=== PATIENT | male | born 1940 | race Caucasian/White ===

== ENCOUNTER → 2018-03-24 08:48 | Outpatient (CLI) | payer MEDICARE, OTHER, SELFPAY | PROVIDERS: PCP Family Medicine; Visit Provider Surgery | DX: R10.13 Epigastric pain (principal); K62.5 Hemorrhage of anus and rectum; K21.9 Gastro-esophageal reflux disease without esophagitis; J44.9 Chronic obstructive pulmonary disease, unspecified; I10 Essential (primary) hypertension | CPT/HCPCS: 99213 ==

== ENCOUNTER → 2018-04-01 11:57 | Outpatient (CLI) | payer MEDICARE, OTHER, SELFPAY | PROVIDERS: PCP Family Medicine; Visit Provider Orthopaedic Surgery | DX: M65.331 Trigger finger, right middle finger (principal) | CPT/HCPCS: 99213 ==

== ENCOUNTER 2018-04-07 09:24 | Outpatient (CLI) | payer MEDICARE, OTHER, SELFPAY | END 2018-04-07 09:44 | PROVIDERS: PCP Family Medicine; Visit Provider Surgery | DX: Z01.810 Encounter for preprocedural cardiovascular examination (principal) | CPT/HCPCS: 93005; 93010 ==

== ENCOUNTER 2018-04-13 07:17 | Day surgery (SDC) | payer MEDICARE, OTHER, SELFPAY ==
[2018-04-07 10:18] VITALS: BP 112/77; PULSE 60; RESP 17; TEMP 36.7; O2SAT 97
[2018-04-13] MEDS: Lactated Ringers 1,000 ML 30 ML IV (07:38)
[2018-04-13 07:54] VITALS: BP 132/67; PULSE 95; RESP 18; TEMP 35.5; O2SAT 97
[2018-04-13 08:05] LABS: HCT 46.5 % (40.0-50.0)
--- NOTE | 2018-04-13 09:11 | STOM_PTH ---
PATIENT: Jovanni Figueroa LOC: [facility] U#:[id number] AGE/SX: 77/M ROOM: RE04/13/[address]: Blair Lundberg DO : 1940 BED: DIS: 04/13/2018 SPEC #: [id number] RECD: 04/13/18 12:50 STATUS: JARVIS RE #: [id number] PRICE: 04/13/18 09:[address]: Blair Lundberg DEPT: Surgical Specimen RECD BY: Leatha Campbell ENTERED: 04/13/18 12:51 SP TYPE: STOMACH OTHR DR: Ronald Irby MD Tissues: 1 - STOMACH BIOPSY Procedures: GROSS AND MICRO LEVEL 4 Comments: [id number]
--- NOTE | 2018-04-13 10:07 | W.PM.DSUDISC ---
Discharge Plan Disposition Patient Disposition: HOME Condition: Good Discharge Details Reason For Visit: EPIGASTRIC PAIN / RECTAL BLEEDING Attending Provider: Blair Lundberg Primary Care Provider: Ronald Irby Home Meds and New Rx's Prescriptions: New sucralfate 1 gram tablet 1 gm PO TID Qty: 90 RF: 0 Continue acetaminophen-caffeine [Excedrin Tension Headache] 1 EACH tablet 2 tab PO BID RF: 0 coenzyme E36-[id number] E [Co Q-10 (with Vit E)] 1 EACH capsule 1 tab PO DAILY RF: 0 finasteride 5 MG tablet 1 tab PO HS RF: 0 doxazosin 4 MG tablet 4 mg PO HS Qty: 90 RF: 4 metoprolol succinate [Toprol XL] 50 MG tablet extended release 24 hr 25 tab PO DAILY Qty: 45 RF: 4 Lactobacillus acidophilus 1 EACH tablet 1 ea PO DAILY Qty: 1 RF: 0 potassium chloride 20 MEQ tablet,ER particles/crystals 2 tab PO DAILY Qty: 180 RF: 4 furosemide 40 MG tablet 40 mg PO DAILY Qty: 90 RF: 4 paroxetine HCl [Paxil] 20 MG tablet 20 mg PO DAILY Qty: 90 RF: 4 tiotropium bromide [Spiriva with HandiHaler] 18 MCG capsule, w/inhalation device 1 puff Inhalation DAILY Qty: 3 RF: 4 pantoprazole 40 MG tablet,delayed release (DR/EC) 40 mg PO BID Qty: 180 RF: 2 bisacodyl [Dulcolax (bisacodyl)] 5 MG tablet,delayed release (DR/EC) 5 mg PO ONCE Qty: 4 RF: 0 Discontinued apixaban [Eliquis] 5 MG tablet 5 mg PO BID Qty: 180 RF: 3 polyethylene glycol 3350 [Miralax] 17 GM powder in packet 17 g PO DAILY Qty: 255 RF: 0 Discharge Instructions Instructions: Colonoscopy (DC), Upper Endoscopy (DC) Activity:: Activity as Tolerated Diet:: resume regular diet Discharge Orders Discharge Orders: Discharge Order (Routine); Ordered 04/13/18 Ordered By: Blair Lundberg
[2018-04-13 10:20] VITALS: BP 120/76; PULSE 60; RESP 16; TEMP 36.4; O2SAT 96
--- NOTE | 2018-04-13 12:42 | ROE_ITS ---
Date of service: 04/13/18 Time of Service: 09:00 Operative Note Date of procedure: 04/13/18 Pre-op diagnosis: 1. Epigastric pain 2. Rectal bleeding Post-op diagnosis: other (1. Gastritis 2. Mild sigmoid diverticulosis 3. Grade 2 hemorrhoids) Procedure: 1. Esophagogastroduodenoscopy with biopsies by cold forceps 2. Colonoscopy to the cecum Surgeon: Blair Lundberg Anesthesia: MAC (Salesman/Owner: Galileo Do CRNA ASA 3 Mallampati class III) Estimated blood loss (mL): 1 Pathology: other (Gastric antral biopsies) Complications: None Patient was transported to: same day Patient's condition: stable Indications: 77 y/o male referred for epigastric pain and rectal bleeding. The epigastric pain started several weeks ago. It has been gradual in its course. He noted more pain then burning. He has a history of GERD which this seems different. He reports the pain sometimes is in his chest and radiates to his back. Gaviscon helps some with the discomfort. He has also had history of rectal bleeding, and will sometimes notice blood on the tissue if he wipes to hard. He does have a sensation of tissue hanging out after a bowel movement which will self reduce. He does have a history of hemorrhoids which he treats with Preparation H with satisfactory relief. His last colonoscopy was about 5 years. Recommended he undergo upper and lower endoscopy. The procedures were discussed with him, and the risks reviewed. All his questions were answered to his satisfaction. Consent was obtained to proceed. Findings: In examining the upper gastrointestinal tract from the oropharynx to the third portion of the duodenum, the patient was noted to have inflammation in the gastric antrum consistent with gastritis shallow ulcerations present. On examination of the colon from cecum to anus including the last portion of the terminal ileum. The patient was noted to have some mild sigmoid diverticulosis, and grade 2 hemorrhoids. Procedure Description: Mr. Young was brought to the preanesthesia staging area ; his identification was confirmed; and his consent signed. He was then brought to the procedure room positioned in the left lateral decubitus. Monitoring for telemetry, O2 saturation, end-tidal CO2, and blood pressure were applied. An appropriate timeout was taken reviewing the patient's identification, allergies, procedure, and fire risk. A bite block was placed, and sedation was titrated for effect by the HEALTHCARE ARCHITECT. Once adequate sedation was reached I advanced the Olympus variable stiffness endoscope from the oropharynx to the third portion of the duodenum without difficulty. The scope was then withdrawn in circumferential manner from the duodenum back to the oropharynx. The duodenum appeared grossly normal. Withdrawing the scope into the stomach, and examining the gastric antrum. I noticed several areas that show ulceration and a generalized inflamed appearance of the mucosa. Multiple biopsies were taken for Confirmation. The scope was then retroflexed in the stomach; the anterior, and posterior surfaces , lesser, and greater curvature, and fundus of the stomach appeared grossly normal. I withdrew the scope to the GE junction. I measured the junction at 41 cm. The Z line was at 41 cm in a regular pattern. I then withdrew the scope through the remainder of the esophagus which was grossly normal. The scope was then removed terminating the upper endoscopy The patient was then repositioned for colonoscopy. His sedation was rechecked for adequacy. Once his sedation was confirmed to be adequate. I performed a digital rectal exam which showed no gross blood, no masses, Normal prostate, and good rectal tone. I then advanced the Olympus variable stiffness colonoscope from the anus to the cecum under direct visualization. The cecum was identified by the appendiceal orifice, and ileocecal valve. I advanced the scope into the terminal ileum for approximately 20 cm. This appeared grossly normal, and the scope was withdrawn back into the cecum. The scope was then withdrawn in circumferential manner from the cecum to the rectum. No abnormalities of the colon were noted other than some mild sigmoid diverticulosis. In the rectum, the scope was retroflexed no abnormalities of the rectal mucosa was noted the patient did have grade 2 hemorrhoids present. The scope was then withdrawn terminating the colonoscopy. There were no complications during the case. The patient tolerated the procedures well Plan: Given the patient's complaints and findings on endoscopy. I am going to start him on salt Carafate in addition to his pantoprazole while waiting for pathology of the upper endoscopy to return. As to the rectal bleeding I believe it is from his hemorrhoids. I will have him return to the office and will discuss excision versus banding the examination under anesthesia.
== END 2018-04-13 10:45 | disposition home or self-care (01) ==
PROVIDERS: PCP Family Medicine; Visit Provider Surgery
PROC: (CPT 43239; principal; 2018-04-13 08:35)
DX: K62.5 Hemorrhage of anus and rectum (principal); K57.30 Diverticulosis of large intestine without perforation or abscess without bleeding; K64.1 Second degree hemorrhoids; R10.13 Epigastric pain; K21.9 Gastro-esophageal reflux disease without esophagitis; K25.9 Gastric ulcer, unspecified as acute or chronic, without hemorrhage or perforation; K31.89 Other diseases of stomach and duodenum; J44.9 Chronic obstructive pulmonary disease, unspecified; I10 Essential (primary) hypertension
CPT/HCPCS: 43239; 45378; 36415; 88305; 85014; 85018

== ENCOUNTER → 2018-04-13 07:31 | Outpatient (BNVA) | payer MEDICARE, OTHER, SELFPAY | PROVIDERS: PCP Family Medicine; Visit Provider Surgery | DX: K62.5 Hemorrhage of anus and rectum (principal); K57.30 Diverticulosis of large intestine without perforation or abscess without bleeding; K64.1 Second degree hemorrhoids; R10.13 Epigastric pain; K21.9 Gastro-esophageal reflux disease without esophagitis; K25.9 Gastric ulcer, unspecified as acute or chronic, without hemorrhage or perforation; K31.89 Other diseases of stomach and duodenum; J44.9 Chronic obstructive pulmonary disease, unspecified; I10 Essential (primary) hypertension ==

== ENCOUNTER 2018-04-16 06:25 | Day surgery (SDC) | payer MEDICARE, OTHER, SELFPAY ==
[2018-04-16 06:46] VITALS: BP 116/71; PULSE 62; RESP 18; TEMP 36.5; O2SAT 97
[2018-04-16 07:24] VITALS: BP 136/90; PULSE 54; O2SAT 95
[2018-04-16] MEDS: Lidocaine 2% Multi-Dose 20 ML VIAL IJ (07:28)
[2018-04-16 07:39] VITALS: BP 129/83; PULSE 60; O2SAT 98
--- NOTE | 2018-04-16 07:50 | W.PM.DSUDISC ---
Discharge Plan Discharge Details Reason For Visit: RMF TRIGGER FINGER Attending Provider: Kvng Dietz Primary Care Provider: Ronald Irby Home Meds and New Rx's Prescriptions: No Action acetaminophen-caffeine [Excedrin Tension Headache] 1 EACH tablet 2 tab PO BID RF: 0 coenzyme G50-xdtlroe E [Co Q-10 (with Vit E)] 1 EACH capsule 1 tab PO DAILY RF: 0 finasteride 5 MG tablet 1 tab PO HS RF: 0 doxazosin 4 MG tablet 4 mg PO HS Qty: 90 RF: 4 metoprolol succinate [Toprol XL] 50 MG tablet extended release 24 hr 25 tab PO DAILY Qty: 45 RF: 4 Lactobacillus acidophilus 1 EACH tablet 1 ea PO DAILY Qty: 1 RF: 0 potassium chloride 20 MEQ tablet,ER particles/crystals 2 tab PO DAILY Qty: 180 RF: 4 furosemide 40 MG tablet 40 mg PO DAILY Qty: 90 RF: 4 paroxetine HCl [Paxil] 20 MG tablet 20 mg PO DAILY Qty: 90 RF: 4 tiotropium bromide [Spiriva with HandiHaler] 18 MCG capsule, w/inhalation device 1 puff Inhalation DAILY Qty: 3 RF: 4 pantoprazole 40 MG tablet,delayed release (DR/EC) 40 mg PO BID Qty: 180 RF: 2 bisacodyl [Dulcolax (bisacodyl)] 5 MG tablet,delayed release (DR/EC) 5 mg PO ONCE Qty: 4 RF: 0 sucralfate 1 gram tablet 1 gm PO TID Qty: 90 RF: 0 apixaban [Eliquis] 5 mg Tablet 5 mg PO BID RF: 0
--- NOTE | 2018-04-16 07:59 | DSE_ITS ---
Discharge Plan Disposition Patient Disposition: HOME Condition: Improving Discharge Details Reason For Visit: RMF TRIGGER FINGER Attending Provider: Kvng Dietz Primary Care Provider: Ronald Irby Home Meds and New Rx's Prescriptions: No Action acetaminophen-caffeine [Excedrin Tension Headache] 1 EACH tablet 2 tab PO BID RF: 0 coenzyme D70-yvqsyfd E [Co Q-10 (with Vit E)] 1 EACH capsule 1 tab PO DAILY RF: 0 finasteride 5 MG tablet 1 tab PO HS RF: 0 doxazosin 4 MG tablet 4 mg PO HS Qty: 90 RF: 4 metoprolol succinate [Toprol XL] 50 MG tablet extended release 24 hr 25 tab PO DAILY Qty: 45 RF: 4 Lactobacillus acidophilus 1 EACH tablet 1 ea PO DAILY Qty: 1 RF: 0 potassium chloride 20 MEQ tablet,ER particles/crystals 2 tab PO DAILY Qty: 180 RF: 4 furosemide 40 MG tablet 40 mg PO DAILY Qty: 90 RF: 4 paroxetine HCl [Paxil] 20 MG tablet 20 mg PO DAILY Qty: 90 RF: 4 tiotropium bromide [Spiriva with HandiHaler] 18 MCG capsule, w/inhalation device 1 puff Inhalation DAILY Qty: 3 RF: 4 pantoprazole 40 MG tablet,delayed release (DR/EC) 40 mg PO BID Qty: 180 RF: 2 bisacodyl [Dulcolax (bisacodyl)] 5 MG tablet,delayed release (DR/EC) 5 mg PO ONCE Qty: 4 RF: 0 sucralfate 1 gram tablet 1 gm PO TID Qty: 90 RF: 0 apixaban [Eliquis] 5 mg Tablet 5 mg PO BID RF: 0 Discharge Instructions Additional Instructions: Keep your right hand elevated above heart level as much as possible for the next 48 hours to minimize pain, swelling and possible bleeding. You may exercise your right hand and fingers as comfort allows. For showering tomorrow , cover your current bandage with a plastic bag and rubber band about the forearm to keep the wound dry. On 04/18/18, you may remove all of your bandages and get your stitch wet in the shower with soap and water. Gently pat the stitch dry and cover it with a bandaid. Resume normal activities as tolerated. Take hour usual medications as before. Take tylenol for any discomfort. Follow-up with Dr. Dietz in5-7 days for stitch removal. Roxanne will let you know the exact date and time. Office phone number is [phone] if you don't hear from her by next thursday. Remove Dressings/Wound Care:: 48 hours Shower/Bathe:: 48 hours Diet:: Regular DS: Data Vitals/I&O Vitals and I&O: Vital Signs Temp 97.7 F 04/16/18 06:46 Pulse 60 04/16/18 07:39 Resp 18 04/16/18 06:46 BP 129/83 04/16/18 07:39 Pulse Ox 98 04/16/18 07:39 Intake & Output 04/15/18 04/15/18 04/16/18 11:59 23:59 11:59 Weight 212 lb 8.41 oz
--- NOTE | 2018-04-16 08:03 | PDOC.DSDIS_ITS ---
Discharge Plan Disposition Patient Disposition: HOME Condition: Improving Discharge Details Reason For Visit: RMF TRIGGER FINGER Attending Provider: Kvng Dietz Primary Care Provider: Ronald Irby Home Meds and New Rx's Prescriptions: No Action acetaminophen-caffeine [Excedrin Tension Headache] 1 EACH tablet 2 tab PO BID RF: 0 coenzyme A19-[id number] E [Co Q-10 (with Vit E)] 1 EACH capsule 1 tab PO DAILY RF: 0 finasteride 5 MG tablet 1 tab PO HS RF: 0 doxazosin 4 MG tablet 4 mg PO HS Qty: 90 RF: 4 metoprolol succinate [Toprol XL] 50 MG tablet extended release 24 hr 25 tab PO DAILY Qty: 45 RF: 4 Lactobacillus acidophilus 1 EACH tablet 1 ea PO DAILY Qty: 1 RF: 0 potassium chloride 20 MEQ tablet,ER particles/crystals 2 tab PO DAILY Qty: 180 RF: 4 furosemide 40 MG tablet 40 mg PO DAILY Qty: 90 RF: 4 paroxetine HCl [Paxil] 20 MG tablet 20 mg PO DAILY Qty: 90 RF: 4 tiotropium bromide [Spiriva with HandiHaler] 18 MCG capsule, w/inhalation device 1 puff Inhalation DAILY Qty: 3 RF: 4 pantoprazole 40 MG tablet,delayed release (DR/EC) 40 mg PO BID Qty: 180 RF: 2 bisacodyl [Dulcolax (bisacodyl)] 5 MG tablet,delayed release (DR/EC) 5 mg PO ONCE Qty: 4 RF: 0 apixaban [Eliquis] 5 mg Tablet 5 mg PO BID RF: 0 Discharge Instructions Additional Instructions: Keep your right hand elevated above heart level as much as possible for the next 48 hours to minimize pain, swelling and possible bleeding. You may exercise your right hand and fingers as comfort allows. For showering tomorrow , cover your current bandage with a plastic bag and rubber band about the forearm to keep the wound dry. On 04/18/18, you may remove all of your bandages and get your stitch wet in the shower with soap and water. Gently pat the stitch dry and cover it with a bandaid. Resume normal activities as tolerated. Take hour usual medications as before. Take tylenol for any discomfort. Follow-up with Dr. Dietz in5-7 days for stitch removal. Roxanne will let you know the exact date and time. Office phone number is [phone] if you don't hear from her by next thursday. Activity:: Elevate Remove Dressings/Wound Care:: 48 hours Shower/Bathe:: 48 hours Diet:: Regular Discharge Orders Discharge Orders: Discharge Order (Routine); Ordered 04/16/18 Ordered By: Kvng Dietz
--- NOTE | 2018-04-16 10:50 | ROE_ITS ---
DATE OF PROCEDURE: April 16, 2018 PREOPERATIVE DIAGNOSIS: Trigger finger right middle finger. POSTOPERATIVE DIAGNOSIS: Same. PROCEDURE: Right trigger finger release via open technique. SURGEON: Kvng Dietz M.D. GM VIDEO: Nurse. ANESTHETIC: 2% Lidocaine plain. PREP: ChloraPrep. INDICATIONS: This patient has been troubled by triggering of his right middle finger. He awakes randolph ry morning with the finger locked and an inability to extend it. He has developed a slight flexion contracture at the PIP joint of about 15 degrees. I explained to him the pathophysiology of a trigge r finger. I recommended release of the A-1 farida under local anesthesia. He understood and wished to proceed. The patient is on Eliquis but I thought other than holding his dose today, he did not aebbe ve to discontinue it because of the limited nature of this surgery and the low risk for hematoma form ation. DESCRIPTION OF PROCEDURE: He was greeted in the Day Surgery area. His right middle finger was lori d. He was brought to the operating suite where his right upper extremity was prepped with ChloraPre p. 2% Lidocaine was then used to create an anesthetic wheal over the A-1 farida. After ensuring ane sthesia to the tip of the middle finger, I made a transverse incision over the A-1 farida. Loupe mag nification was used throughout the procedure. Blunt dissection was used to protect the digital nerve s and the vascular bundles from injury. The tendon sheath was identified and incised longitudinally, releasing the A-1 farida so that the patient could then flex and extend his middle finger in an unen cumbered fashion. There was no significant bleeding despite the fact that the patient normally takes Eliquis. The wound was closed with a single suture of #4-0 Ethilon in a horizontal mattress fashion . Xeroform was applied followed by 4x4's and a 2-inch conforming gauze bandage. The patient was destiney en to the outpatient recovery room in satisfactory condition, tolerating the procedure well.
== END 2018-04-16 08:20 | disposition home or self-care (01) ==
PROVIDERS: PCP Family Medicine; Visit Provider Orthopaedic Surgery
PROC: (CPT 26055; principal; 2018-04-16 07:30)
DX: M65.331 Trigger finger, right middle finger (principal); J44.9 Chronic obstructive pulmonary disease, unspecified; I10 Essential (primary) hypertension
CPT/HCPCS: 26055; J3490

== ENCOUNTER → 2018-04-16 07:52 | Outpatient (BNVA) | payer MEDICARE, OTHER, SELFPAY | PROVIDERS: PCP Family Medicine; Visit Provider Orthopaedic Surgery | DX: R69 Illness, unspecified (principal) ==

== ENCOUNTER → 2018-04-22 13:23 | Outpatient (BNVA) | payer MEDICARE, OTHER, SELFPAY | PROVIDERS: PCP Family Medicine; Referring Provider Family Medicine; Visit Provider Orthopaedic Surgery | DX: Z47.89 Encounter for other orthopedic aftercare (principal); M65.331 Trigger finger, right middle finger ==

== ENCOUNTER → 2018-04-26 10:47 | Outpatient (BNVA) | payer MEDICARE, OTHER, SELFPAY | PROVIDERS: PCP Family Medicine; Referring Provider Family Medicine; Visit Provider Surgery | DX: K62.5 Hemorrhage of anus and rectum (principal); K64.9 Unspecified hemorrhoids | CPT/HCPCS: 99212 ==

== ENCOUNTER 2018-05-07 08:10 | Outpatient (CLI) | payer MEDICARE, OTHER, SELFPAY | END 2018-05-07 08:30 | PROVIDERS: PCP Family Medicine; Visit Provider Surgery | DX: K62.5 Hemorrhage of anus and rectum (principal); Z01.818 Encounter for other preprocedural examination ==

== ENCOUNTER 2018-05-11 07:31 | Day surgery (SDC) | payer MEDICARE, OTHER, SELFPAY ==
[2018-05-11 07:38] VITALS: BP 135/89; PULSE 65; RESP 16; TEMP 36.6; O2SAT 96
[2018-05-11] MEDS: Lactated Ringers 1,000 ML 30 ML IV (08:22)
--- NOTE | 2018-05-11 10:05 | PDOC.DSDIS_ITS ---
Discharge Plan Disposition Patient Disposition: HOME Condition: Good Discharge Details Reason For Visit: Bleeding hemorrhoids Attending Provider: Blair Lundberg Primary Care Provider: Ronald Irby Home Meds and New Rx's Prescriptions: Continue acetaminophen-caffeine [Excedrin Tension Headache] 1 EACH tablet 2 tab PO BID RF: 0 coenzyme P39-bjhdjos E [Co Q-10 (with Vit E)] 1 EACH capsule 1 tab PO DAILY RF: 0 finasteride 5 MG tablet 1 tab PO HS RF: 0 doxazosin 4 MG tablet 4 mg PO HS Qty: 90 RF: 4 metoprolol succinate [Toprol XL] 50 MG tablet extended release 24 hr 25 tab PO DAILY Qty: 45 RF: 4 Lactobacillus acidophilus 1 EACH tablet 1 ea PO DAILY Qty: 1 RF: 0 potassium chloride 20 MEQ tablet,ER particles/crystals 2 tab PO DAILY Qty: 180 RF: 4 furosemide 40 MG tablet 40 mg PO DAILY Qty: 90 RF: 4 paroxetine HCl [Paxil] 20 MG tablet 20 mg PO DAILY Qty: 90 RF: 4 tiotropium bromide [Spiriva with HandiHaler] 18 MCG capsule, w/inhalation device 1 puff Inhalation DAILY Qty: 3 RF: 4 pantoprazole 40 MG tablet,delayed release (DR/EC) 40 mg PO BID Qty: 180 RF: 2 sucralfate 1 gram tablet 1 gm PO TID Qty: 90 RF: 0 apixaban [Eliquis] 5 mg Tablet 5 mg PO BID RF: 0 Discharge Instructions Instructions: Rubber Band Ligation (DC) Referrals: Balir Lundberg DO [ [facility] STAFF PHYSICIAN] - 05/19/18 10:45 am (Follow up after hemorrhoid banding of bleeding internal hemorrhoids) Discharge Orders Discharge Orders: Discharge Order (Routine); Ordered 05/11/18 Ordered By: Blair Lundberg Discharge Data Discharge Comment: Damián okeefe DS: Diagnosis Discharge Diagnosis (1) Internal and external bleeding hemorrhoids: Status: Acute Asessment and Plan: Plan for EUA of anus and rectum with hemorrhoid banding
[2018-05-11 10:37] VITALS: BP 107/67; PULSE 51; RESP 16; TEMP 36.4; O2SAT 96
--- NOTE | 2018-05-11 14:27 | ROE_ITS ---
Date of service: 05/11/18 Time of Service: 09:30 Operative Note DATE OF PROCEDURE: 05/11/18 PRE-OP DIAGNOSIS: Bleeding internal hemorrhoid POST-OP DIAGNOSIS: same PROCEDURE: Examination under anesthesia of the anus and rectum with hemorrhoid banding SURGEON: Blair Lundberg ANESTHESIA: MAC and local (1.3% Exparel) ESTIMATED BLOOD LOSS: 1 PATHOLOGY: none sent COMPLICATIONS: None Patient was transported to: same day Patient's condition: stable Implants: Rubber band ligation of 2 hemorrhoidal columns Indications: 77-year-old male with prolapsing internal hemorrhoid. Usually reduces on its own, has occasional problems with bleeding from this. He is mostly concerned with the hygiene issues that it causes. He would like this removed if possible. I discussed examination under anesthesia of the anus and rectum with possible hemorrhoid banding. I reviewed the risks. All his questions were answered to his satisfaction. Findings: On examination of the anus and rectum patient was noted to have 2 engorged hemorrhoidal columns the left lateral column and right posterior column. The right posterior column was particularly engorged and most likely the hemorrhoid that prolapses out and causes hygiene issues for Mr. Figueroa. Procedure Description: The patient was brought to the operating room. His identification was confirmed. He was positioned supine on the bed. A timeout was performed reviewing the patient's identification, allergies, medications, procedure, and equipment. Sedation was titrated for effect by the CAREER INFORMATION SPECIALIST. Once adequate sedation was reached he was placed in dorsal lithotomy position with his legs in stirrups to expose the perineum. Sling was made to retract the genitalia. Gentle dilation of the anus was performed first with digital dilation. I then infiltrated 1.3% Exparel circumferentially around the anus. I then introduced a lighted anoscope and inspected the anus and distal rectum circumferentially. On circumferential inspection I did note the left lateral hemorrhoidal column was engorged, as was the right posterior column. The right posterior column had significant redundancy, and was most likely responsible for most of the patient's complaints. I, subsequently, banded both hemorrhoidal columns. The left lateral column was adequately addressed with 1 set of rubber band ligation. The right posterior column required to sets of her band ligation to adequately reduce the redundant hemorrhoidal tissue. After banding, I inspected the anus and distal rectum again. There is good apposition of the hemorrhoidal tissue as described above. The scope was then removed in in case. The patient was awakened in the operating room and brought to day surgery recovery area in good condition. There are no complications during the case the patient tolerated procedure well.
== END 2018-05-11 10:57 | disposition home or self-care (01) ==
PROVIDERS: PCP Family Medicine; Visit Provider Surgery
PROC: (CPT 46221; principal; 2018-05-11 09:00)
PROC: (CPT 46221; 2018-05-11 09:00)
DX: K64.1 Second degree hemorrhoids (principal); K21.9 Gastro-esophageal reflux disease without esophagitis; G47.33 Obstructive sleep apnea (adult) (pediatric); I10 Essential (primary) hypertension; I48.91 Unspecified atrial fibrillation
CPT/HCPCS: 46221; J1100; J2250; J2405; J3010

== ENCOUNTER → 2018-05-19 10:30 | Outpatient (BNVA) | payer MEDICARE, OTHER, SELFPAY | PROVIDERS: PCP Family Medicine; Referring Provider Family Medicine; Visit Provider Surgery | DX: Z48.89 Encounter for other specified surgical aftercare (principal); J44.9 Chronic obstructive pulmonary disease, unspecified; Z87.891 Personal history of nicotine dependence; K64.9 Unspecified hemorrhoids ==

== ENCOUNTER → 2018-06-02 09:34 | Outpatient (BNVA) | payer MEDICARE, OTHER, SELFPAY | PROVIDERS: PCP Family Medicine; Referring Provider Family Medicine; Visit Provider Surgery | DX: Z48.89 Encounter for other specified surgical aftercare (principal); K64.4 Residual hemorrhoidal skin tags; J44.9 Chronic obstructive pulmonary disease, unspecified; Z87.891 Personal history of nicotine dependence; I10 Essential (primary) hypertension; K64.8 Other hemorrhoids | CPT/HCPCS: 99212; 99213 ==

== ENCOUNTER → 2018-08-02 10:10 | Outpatient (BNVA) | payer MEDICARE, OTHER, SELFPAY | PROVIDERS: PCP Family Medicine; Referring Provider Family Medicine; Visit Provider Surgery | DX: K64.1 Second degree hemorrhoids (principal); K21.9 Gastro-esophageal reflux disease without esophagitis; J44.9 Chronic obstructive pulmonary disease, unspecified; Z87.891 Personal history of nicotine dependence; I10 Essential (primary) hypertension | CPT/HCPCS: 99213 ==

== ENCOUNTER 2018-09-07 10:41 | Outpatient (CLI) | payer MEDICARE, OTHER, SELFPAY ==
[2018-09-07 13:00] LABS: CREATININE 1.82 mg/dL (0.70-1.30); Estimated GFR 36.12 (mL/min/1.73m2)
[2018-09-07 13:06] LABS: Hemoglobin A1C 6.3 % (4.5-6.2)
== END 2018-09-07 11:01 ==
PROVIDERS: PCP Family Medicine; Visit Provider Family Medicine
DX: R73.09 Other abnormal glucose (principal); I10 Essential (primary) hypertension
CPT/HCPCS: 36415; 82565; 83036

== ENCOUNTER 2018-09-13 02:20 | Outpatient (CLI) | payer MEDICARE, OTHER, SELFPAY ==
--- NOTE | 2018-09-13 08:07 | DI.CT_ITS ---
SYMPTOM/DIAGNOSIS: ABD PAIN, R10.[address]: CT scan of the abdomen and pelvis was performed with oral contrast only. Comparison is made with 06/16/14. Emphysematous changes are seen in the lung bases. No focal consolidating infiltrates are seen. Lack of IV contrast does limit evaluation of the abdominal organs. The unenhanced liver, spleen, pancreas and bile ducts are unremarkable. The patient is status post cholecystectomy. There are stable bilateral adrenal nodules. These likely reflect adenomas. The kidneys show no evidence of nephrolithiasis or hydronephrosis. There are bilateral renal cysts, the largest is seen in the lower pole of the right kidney and measures 6.6 cm. by 6.5 cm. The urinary bladder is intact. The prostate gland appears to impinge into the base of the urinary bladder. Bladder diverticula are seen posteriorly. There is atherosclerosis of the abdominal aorta without aneurysmal dilatation. No significant abdominal or pelvic adenopathy, ascites or pneumoperitoneum is seen. There is diverticulosis seen in the descending and sigmoid colon but no evidence of acute diverticulitis. No evidence of bowel obstruction or inflammation. No findings to suggest an acute appendicitis are present. Degenerative changes are seen in the spine. IMPRESSION: 1. No evidence of an acute abdomen. 2. Bilateral renal cysts. 3. Colonic diverticulosis but no evidence of acute diverticulitis. 4. Soft tissue mass impinging upon the base of the urinary bladder. This may reflect benign prostatic hypertrophy. A prostatic or bladder neoplasm cannot be entirely excluded. Further evaluation may be obtained with ultrasound or cystoscopy.
[2018-09-13] MEDS: Omnipaque 350 MG/ML 50 ML BTL PO (10:50)
== END 2018-09-13 02:40 ==
PROVIDERS: PCP Family Medicine; Visit Provider Family Medicine
DX: R10.84 Generalized abdominal pain (principal); N28.1 Cyst of kidney, acquired; K57.30 Diverticulosis of large intestine without perforation or abscess without bleeding; N32.3 Diverticulum of bladder; N32.9 Bladder disorder, unspecified
CPT/HCPCS: 74176; Q9967

== ENCOUNTER → 2018-10-05 12:33 | Outpatient (BNVA) | payer MEDICARE, OTHER, SELFPAY | PROVIDERS: PCP Family Medicine; Referring Provider Family Medicine; Visit Provider Nurse Practitioner Gerontology | DX: R33.9 Retention of urine, unspecified (principal); N40.1 Benign prostatic hyperplasia with lower urinary tract symptoms; J44.9 Chronic obstructive pulmonary disease, unspecified; Z87.891 Personal history of nicotine dependence; I10 Essential (primary) hypertension; N32.9 Bladder disorder, unspecified | CPT/HCPCS: 51798; 81003; 99204; 99215 ==

== ENCOUNTER 2018-10-25 10:06 | Day surgery (SDC) | payer MEDICARE, OTHER, SELFPAY ==
--- NOTE | 2018-10-25 10:11 | DI.RAD_ITS ---
SYMPTOMS/DIAGNOSIS: PAIN, S/P FALL RIGHT WRIST: There is a fracture seen extending transversely through the distal radial metaphysis. There is severe posterior displacement with a full shaft width as well as overriding of the fracture fragments. There is also severe dorsal angulation. There is mild comminution at the main fracture site. There is no visible extension to the articular surface. The ulnar styloid is fractured and displaced posteriorly. No carpal fractures are seen. There are degenerative changes at the first carpal metacarpal joint as well as first metacarpal deformity which could be related to old fractures. IMPRESSION: Colles fracture with severe posterior displacement and angulation.
[2018-10-25 10:13] VITALS: BP 133/84; PULSE 65; RESP 20; TEMP 36.5; O2SAT 95
[2018-10-25] MEDS: oxyCODONE 5 MG TAB PO (10:17)
--- NOTE | 2018-10-25 10:25 | ED.GENADUL_ITS ---
Discharge Plan Disposition Patient Disposition: [facility] Condition: Stable Discharge Details Chief Complaint: Orthopedic Clinical Impression: Fracture of right wrist Primary Care Provider: Ronald Irby ED Provider: Anuel Burch Home Meds and New Rx's Prescriptions: No Action doxazosin 4 mg tablet 4 mg PO DAILY Qty: 30 RF: 0 sucralfate 1 gram tablet 1 gm PO TID Qty: 270 RF: 3 hydrocortisone [Preparation H Hydrocortisone] 1 % cream 1 applic TP BID Qty: 26 RF: 3 finasteride 5 mg tablet 5 mg PO HS RF: 0 Excedrin Tension Headache 1 EACH tablet 2 tab PO BID RF: 0 coenzyme [id number] E [Co Q-10 (with Vit E)] 1 EACH capsule 1 tab PO DAILY RF: 0 metoprolol succinate [Toprol XL] 50 MG tablet extended release 24 hr 25 tab PO DAILY Qty: 45 RF: 4 Lactobacillus acidophilus 1 EACH tablet 1 ea PO DAILY Qty: 1 RF: 0 Spiriva with HandiHaler 18 MCG capsule, w/inhalation device 1 puff Inhalation DAILY Qty: 3 RF: 4 pantoprazole 40 MG tablet,delayed release (DR/EC) 40 mg PO BID Qty: 180 RF: 2 doxazosin 4 mg tablet 4 mg PO HS Qty: 90 RF: 4 potassium chloride 20 mEq tablet,ER particles/crystals 40 meq PO DAILY Qty: 180 RF: 4 furosemide 40 mg tablet 40 mg PO DAILY Qty: 90 RF: 4 paroxetine HCl [Paxil] 20 mg tablet 20 mg PO DAILY Qty: 90 RF: 4 Eliquis 5 mg Tablet 5 mg PO BID RF: 0 Medical Decision Making 77 yo male states he fell after slipped on ice and landed on his right wrist, denies hitting his head or loc and has no headache, neck pain even on rom and no n/v. He has an obvious deformity to the right wrist, denies pain elsewhere. Has intact cap refill and sensation sodo not feel emergent reduction prior to xray indicated. will obtian xray of the wrist xray confirms fracture with significant dislocation, continues to have intact sensation in all fingers. Spoke with Dr. Sheridan from ortho and he will bring pt to OR for reduction Differential Diagnosis fx, dislocation Imaging Data Radiologic Study: Attestation: I personally reviewed and interpreted this imaging study as follows: Imaging: X-Ray Radiologist's impression: right wrist fx/dislocation HPI General Date/Time Provider Initiated Documentation: 10/25/18 10:11 . Limitations to Documentation: no limitations . Information obtained by: patient . History of Present Illness 77 year old M presents to the emergency department with the chief complaint of right wrist pain, described as severe, Quality is described as aching, and is localized to the right and upper extremity. Patient reports no radiation. Patient started experiencing this hour(s) (1) and it has been constant. Rest improves symptom(s), Patient did receive the following treatments prior to arrival, none Related Data Home Medications Medication Instructions Recorded Confirmed Excedrin Tension Headache 2 tab PO BID 10/25/12 10/25/18 coenzyme [id number] E [Co Q-10 1 tab PO DAILY 07/15/13 10/25/18 (with Vit E)] metoprolol succinate [Toprol XL] 25 tab PO DAILY #45 tab-cap 11/19/16 10/25/18 Lactobacillus acidophilus 1 ea PO DAILY #1 12/09/16 10/25/18 Spiriva with HandiHaler 1 puff INHALATION DAILY #3 ea 07/31/17 10/25/18 pantoprazole 40 mg PO BID #180 tab-cap 03/08/18 10/25/18 Eliquis 5 mg PO BID 04/16/18 10/25/18 hydrocortisone 1 % topical cream 1 applic TP BID #26 gm 05/19/18 10/25/18 sucralfate 1 gram tablet 1 gm PO TID #270 tab 05/19/18 10/25/18 doxazosin 4 mg tablet 4 mg PO HS #90 tab-cap 06/01/18 10/25/18 doxazosin 4 mg tablet 4 mg PO DAILY #30 tab 06/03/18 10/25/18 potassium chloride ER 20 mEq 40 meq PO DAILY #180 tab-cap 07/22/18 10/25/18 tablet,extended release(part/cryst) furosemide 40 mg tablet 40 mg PO DAILY #90 tab-cap 08/12/18 10/25/18 finasteride 5 mg tablet 5 mg PO HS tab 10/05/18 10/25/18 paroxetine 20 mg tablet 20 mg PO DAILY #90 tab-cap 10/11/18 10/25/18 Previous Rx's Medication Instructions Recorded Spiriva with HandiHaler 1 puff INHALATION DAILY #3 ea 07/31/17 pantoprazole 40 mg PO BID #180 tab-cap 03/08/18 hydrocortisone 1 % topical cream 1 applic TP BID #26 gm 05/19/18 sucralfate 1 gram tablet 1 gm PO TID #270 tab 05/19/18 doxazosin 4 mg tablet 4 mg PO HS #90 tab-cap 06/01/18 doxazosin 4 mg tablet 4 mg PO DAILY #30 tab 06/03/18 potassium chloride ER 20 mEq 40 meq PO DAILY #180 tab-cap 07/22/18 tablet,extended release(part/cryst) furosemide 40 mg tablet 40 mg PO DAILY #90 tab-cap 08/12/18 paroxetine 20 mg tablet 20 mg PO DAILY #90 tab-cap 10/11/18 Allergies Allergy/AdvReac Type Severity Reaction Status Date / Time pravastatin AdvReac Severe ABDOMINAL Verified 10/25/18 10:28 PAIN General Stated Complaint: Orthopedic JOE: 3 Review of Systems Review of Systems All systems reviewed & are unremarkable except as noted in HPI and below Constitutional Denies chills and Denies fever(s) Cardiovascular Denies chest pain and Denies dyspnea Respiratory Denies cough and Denies dyspnea Gastrointestinal Denies abdominal pain, Denies nausea and Denies vomiting PFS Medical History Anxiety Atrial fibrillation BPH (benign prostatic hyperplasia) CAD (coronary artery disease) COPD (chronic obstructive pulmonary disease) Cardiomyopathy Epigastric pain Essential hypertension Former smoker Internal hemorrhoids IA (myocardial infarction) Mitral valve regurgitation MAGAN (obstructive sleep apnea) MAGAN treated with BiPAP Oral lesion Rectal bleeding Right lumbar radiculopathy Tachy-danni syndrome Trigger finger, right middle finger Surgical History History of colonoscopy (Chronic 04/13/18) History of esophagogastroduodenoscopy (EGD) (Chronic 04/13/18) History of hemorrhoidectomy (Chronic 05/11/18) Arthroscopy, Shoulder (~1966) Cholecystectomy Repair of inguinal hernia Thyroid left heart cadiac cath (~1982) Family History Mother No problems noted. Father No problems noted. Brother No problems noted. Social History Smoking/Tobacco Use Status: Former Tobacco Use Alcohol Intake: current Alcohol Intake frequency: a few times a week Alcohol type: beer Drug use: Never Substance use type: does not use Aleyda/Scientology: No preference Special aleyda needs: No Do you feel safe at home: Yes Do you feel safe in your relationship?: Yes Exam Const General: no acute distress Orientation: alert HENMT Head: normal to inspection Ears: external ears normal General nose exam: external nose normal Mouth: moist mucous membranes Eyes General: appearance normal, both eyes and all related structures Neck Neck: normal visual inspection Resp Effort & Inspection: normal respiratory effort and able to speak in complete sentences Cardio Rate: regular rate Skin General skin exam: no rashes or lesions noted Neuro General: alert and oriented x3 Extrem General: normal capillary refill Psych Mental Status: mental status grossly normal Course Respiratory Effort Non-Labored 10/25/18 10:13
--- NOTE | 2018-10-25 11:03 | DI.RAD_ITS ---
SYMPTOMS/DIAGNOSIS: RT WRIST DISTAL RADIUS FRACTURE C-ARM FLUOROSCOPY OF THE RIGHT WRIST: Fluoroscopy Time: 33.8 seconds/.39 mGy Fluoroscopy was provided in the OR for Dr. Sheridan. Hardcopy images show pin placement through the distal radius for fracture fixation. The alignment is now nearly anatomic.
[2018-10-25] MEDS: Lactated Ringers 1,000 ML 125 ML IV (11:31)
[2018-10-25 12:30] VITALS: BP 101/73; PULSE 58; RESP 13; TEMP 36.5; O2SAT 92
[2018-10-25 12:35] VITALS: BP 117/57; PULSE 62; RESP 14; TEMP 36.5; O2SAT 92
[2018-10-25 12:40] VITALS: BP 114/64; PULSE 60; RESP 13; TEMP 36.5; O2SAT 93
--- NOTE | 2018-10-25 12:44 | PDOC.DSDIS_ITS ---
Discharge Plan Disposition Patient Disposition: HOME Condition: Stable Discharge Details Chief Complaint: Orthopedic Clinical Impression: Fracture of right wrist Reason For Visit: closed reduction/percutaneous pinning fx distal ra Attending Provider: Garo Sheridan Primary Care Provider: Ronald Irby ED Provider: Anuel Burch Home Meds and New Rx's Prescriptions: New hydrocodone-acetaminophen 5-325 mg tablet 1 tab PO Q6H PRN (Reason: pain) Qty: 10 RF: 0 Continued doxazosin 4 mg tablet 4 mg PO DAILY Qty: 30 RF: 0 sucralfate 1 gram tablet 1 gm PO TID Qty: 270 RF: 3 hydrocortisone [Preparation H Hydrocortisone] 1 % cream 1 applic TP BID Qty: 26 RF: 3 finasteride 5 mg tablet 5 mg PO HS RF: 0 Excedrin Tension Headache 1 EACH tablet 2 tab PO BID RF: 0 coenzyme [id number] E [Co Q-10 (with Vit E)] 1 EACH capsule 1 tab PO DAILY RF: 0 metoprolol succinate [Toprol XL] 50 MG tablet extended release 24 hr 25 tab PO DAILY Qty: 45 RF: 4 Lactobacillus acidophilus 1 EACH tablet 1 ea PO DAILY Qty: 1 RF: 0 Spiriva with HandiHaler 18 MCG capsule, w/inhalation device 1 puff Inhalation DAILY Qty: 3 RF: 4 pantoprazole 40 MG tablet,delayed release (DR/EC) 40 mg PO BID Qty: 180 RF: 2 doxazosin 4 mg tablet 4 mg PO HS Qty: 90 RF: 4 potassium chloride 20 mEq tablet,ER particles/crystals 40 meq PO DAILY Qty: 180 RF: 4 furosemide 40 mg tablet 40 mg PO DAILY Qty: 90 RF: 4 paroxetine HCl [Paxil] 20 mg tablet 20 mg PO DAILY Qty: 90 RF: 4 Eliquis 5 mg Tablet 5 mg PO BID RF: 0 Discharge Instructions Additional Instructions: Elevate R hand on pillows above heart level as much as possible for next 48-72 hours. Bend and straighten fingers R hand 10 times/hour when awake to prevent swelling. Your fingers may stay numb for 24 hours due to nerve block I put in to decrease post-op pain. Keep splint and dressings dry and intact until return. Use R hand as much as your discomfort allows. Return to 's office in one week. Take hydrocodone for breakthru pain that is not controlled by tylenol or ibuprofen. Cover dressings with plastic bag sealed with large rubber band below elbow to shower. May resume Eliquis tomorrow. Referrals: Garo Sheridan MD [ [facility] STAFF PHYSICIAN] - (f/u in one week) Equipment/Supplies: Sling Activity:: Activity as Tolerated Remove Dressings/Wound Care:: Do Not Remove Shower/Bathe:: Cover Diet:: As Tolerated Discharge Orders Discharge Orders: Discharge Order (Routine); Ordered 10/25/18 Ordered By: Garo Sheridan DS: Diagnosis Discharge Diagnosis (1) Fracture of radius, distal, with ulna, right, closed: Status: Acute
[2018-10-25 12:55] VITALS: BP 120/76; PULSE 57; RESP 15; TEMP 36.5; O2SAT 94
[2018-10-25 13:36] VITALS: BP 118/80; PULSE 60; RESP 18; TEMP 35.6; O2SAT 94
--- NOTE | 2018-10-25 13:42 | PHPE_ITS ---
DATE OF PROCEDURE: October 25, 2018 DATE OF EXAM: October 25, 2018 SURGEON: Garo Sheridan M.D. REASON FOR ADMISSION: Displaced fracture distal radius and ulna on the right. ASSESSMENT: Completely displaced extraarticular fracture of the distal radius and ulna styloid on th e right. It is surprising that he does not have any neurovascular compromise at this time, but I thi nk that if it's not attended to quickly, he will develop this. Another complication is from bleeding from the Eliquis he takes, although he has not taken his dose today. PLAN: I plan to take him to the Operating Room to perform a closed reduction under general anesthesi a. I think reduction alone won't be enough and I'm recommending percutaneous pinning of the fracture once it's reduced. I think this would be easier and as effective as volar plating. I discussed jhon givens with the patient and he is in agreement with my treatment plan. HISTORY: This is a 77-year-old white male who slipped on the ice outside his house, landing on his o utstretched right wrist and back on the right side. This happened just an hour and a half prior to c oming to the Emergency Room. He was seen to have an obvious deformity of the distal radius. X-rays showed a completely displaced fracture of the distal radius that appears to be extraarticular, but th e distal fracture fragment is completely displaced and shortened at least 3 cm. Despite this amount of displacement, he's not complaining of any numbness in his fingers of his right hand. I was consul poli for further treatment. PAST SURGICAL HISTORY: 1. Surgery on the right shoulder for recurrent dislocations. The surgery was in the s. 2. Biceps tendon rupture, distal, on the right that was fixed. 3. A couple of hernia repairs. 4. Gallbladder removal. 5. Partial thyroidectomy. 6. Recently had trigger finger release a couple of months ago by Dr. Dietz. ADDITIONAL PROBLEMS: 1. Coronary artery disease. He thinks he has a problem with his heart valve, but he is not sure. He 's got atrial fibrillation and he's being treated with rate control with beta luciana and Eliquis as anticoagulant. 2. Detached retina. 3. Benign prostatic hypertrophy and has had some urinary obstruction in the past, along with urinary retention. REVIEW OF SYSTEMS: He says he's feeling good. He denies any loss of consciousness with his fall. Denies any chest pain or shortness of breath. He has some discomfort in the posterior shoulder since the fall, but that's it. No neck pain. PHYSICAL EXAM: HEAD: Normocephalic; no evidence of any external trauma to the head. EARS/NOSE/THROAT: External auditory canals are clear. He has false teeth upper and lower. Tongue i s well papillated and midline. No masses in the neck; no bruits. HEART: His rate appears to be regular to me today. I cannot hear a murmur. LUNGS: Clear to auscultation. ABDOMEN: Soft, nontender, active bowel sounds; no palpable masses. NEURO: He is oriented to time, place, person and situation. RIGHT UPPER EXTREMITY: He has an obvious, severe silver fork deformity to his fractured distal radiu s. Surprisingly 2-point discrimination in the right hand is normal. He has good capillary refill in the right hand. He has no peripheral edema in the LOWER EXTREMITIES. He has a deltopectoral scar on the right from his previous SHOULDER surgery.
--- NOTE | 2018-10-25 16:15 | ROE_ITS ---
DATE OF PROCEDURE: October 25, 2018 PREOPERATIVE DIAGNOSIS: Displaced fracture of distal radius and ulnar styloid on the right. POSTOPERATIVE DIAGNOSIS: Same. PROCEDURE: #1. Closed reduction and percutaneous pinning of a fracture of the distal radius and ulnar styloid o n the right. #2. Application of volar fiberglass splint. SURGEON: Garo Sheridan M.D. ANESTHESIA: General, Oscar Stuart CRNA INDICATIONS: This this is a 77-year-old white male who slipped on the ice today, landing on his outs tretched right wrist. He presented to the Emergency Room with a severe deformity of his right distal radius. X-rays revealed a completely dorsally displaced fracture of the distal radius and ulnar sty loid. The fracture was metaphyseal with no extension into the wrist joint. Shortening was at least 3 cm. He had no median nerve sensory loss on exam. He had good circulation to the fingertips. The severity of the deformity however was an indication for a closed reduction. I did not feel that the reduction could be held adequately in a cast and recommended percutaneous pinning to supplement the c losed reduction. I selected percutaneous pinning because the patient is on a regular dose of Eliquis for atrial fibrillation. The risks and complications of the procedure were explained to Mr. Figueroa in detail preoperatively. PROCEDURE: The patient was taken to the Operating Room on 10/25/18. A general anesthetic was adminis tered. The right upper extremity was suspended from an IV pole with finger traps. Countertraction o f 12 pounds was applied. A closed manipulated reduction was performed. I felt that the fracture red uced well. AP and lateral C-arm views of the distal radius showed the fracture was anatomically redu berkley. I left the upper extremity suspended through finger traps and prepped the wrist with chlorhexidine. With the help of C-arm visualization, I placed a 0.062 K-wire through the radial styloid and across t he fracture, engaging the ulnar cortex of the radial shaft proximal to the fracture. I then used a K david technique and placed two 0.062 K-wires percutaneously on the dorsum of the distal radius. Th e pins were inserted through the fracture site and driven until they engaged the volar cortex of the radius proximal to the fracture, as described by Mendez, to prevent displacement of the distal frac ture fragment. C-arm images on the AP and lateral views showed anatomic reduction and good placement of the pins. The skin was freed up around the pin sites with manual manipulation. The pin sites we re dressed with Xeroform gauze. The pins were cut short and pinballs were applied. The pin sites we re dressed with sterile gauze 4x4s, wrapped with a Marjorie bandage, and then overwrapped with a 4-inch Kerlix bandage. I took the upper extremity out of traction and applied a volar fiberglass splint hel d with a 3-inch Delbert bandage. Prior to wrapping the fracture, I placed 15 cc of 0.5% Marcaine with ep inephrine solution in the fracture site using an 18-gauge needle to perform a hematoma block. The imer jaime's anesthesia was then reversed without complications and he was discharged to the Recovery Room in good condition. The patient was discharged home from the Day Surgery Unit when fully recovered from his general anest hesia. He was experiencing excellent pain relief from his hematoma block. He was encouraged to bend and straighten the fingers of his right hand 10 times an hour while awake. He is to keep the dressi ngs and splint intact and dry until he follows up with Dr. Sheridan in one week. He will take Tylenol or ibuprofen for pain. He is given a prescription for breakthrough pain of hydrocodone/APAP 5 mg/325 mg, 1 tablet every 6 hours if needed. He will resume his Eliquis tomorrow.
== END 2018-10-25 14:14 | disposition home or self-care (01) ==
LOC: ER 11:07 → DSU 11:23 → SUR 11:28
PROVIDERS: Emergency Provider Emergency Medicine; PCP Family Medicine; Visit Provider Orthopaedic Surgery
PROC: (CPT 26727; principal; 2018-10-25 13:00)
DX: S52.551A Other extraarticular fracture of lower end of right radius, initial encounter for closed fracture (principal); S52.611A Displaced fracture of right ulna styloid process, initial encounter for closed fracture; W00.0XXA Fall on same level due to ice and snow, initial encounter; Y92.018 Other place in single-family (private) house as the place of occurrence of the external cause; I48.91 Unspecified atrial fibrillation; Z79.01 Long term (current) use of anticoagulants
CPT/HCPCS: 25606; 25651; 36415; 99285; 73100; 73110; 99284; J2405; J3010; L3650

== ENCOUNTER 2018-11-03 09:22 | Outpatient (CLI) | payer MEDICARE, OTHER, SELFPAY ==
--- NOTE | 2018-11-03 08:59 | DI.RAD_ITS ---
SYMPTOMS/DIAGNOSIS: GROIN PAIN, F/U SURGERY WRIST RIGHT WRIST: The patient is status post pin fixation of a comminuted fracture of the distal radius. The fracture in excellent position. Unchanged when compared with the intraoperative images of 10/25/18. AP PELVIS: The bony structures are normally mineralized. Minimal degenerative changes involving the hips are noted. There is no evidence of a fracture or dislocation.
== END 2018-11-03 09:42 ==
PROVIDERS: PCP Family Medicine; Referring Provider Family Medicine; Visit Provider Orthopaedic Surgery
DX: S52.501A Unspecified fracture of the lower end of right radius, initial encounter for closed fracture (principal); R10.31 Right lower quadrant pain; M16.0 Bilateral primary osteoarthritis of hip; M25.551 Pain in right hip; S52.601A Unspecified fracture of lower end of right ulna, initial encounter for closed fracture; W19.XXXA Unspecified fall, initial encounter
CPT/HCPCS: 72170; 73110

== ENCOUNTER 2018-11-17 08:51 | Outpatient (CLI) | payer MEDICARE, OTHER, SELFPAY ==
--- NOTE | 2018-11-17 08:48 | DI.RAD_ITS ---
SYMPTOMS/DIAGNOSIS: S/P OPEN REDUCTION AND INTERNAL FIXATION OF RIGHT DISTAL RADIUS RIGHT WRIST: When compared with previous images, again noted is excellent position of the distal radial fracture fragments, fixation pins in place.
== END 2018-11-17 09:11 ==
PROVIDERS: PCP Family Medicine; Referring Provider Family Medicine; Visit Provider Orthopaedic Surgery
DX: S52.501A Unspecified fracture of the lower end of right radius, initial encounter for closed fracture (principal); S52.601A Unspecified fracture of lower end of right ulna, initial encounter for closed fracture; X58.XXXA Exposure to other specified factors, initial encounter
CPT/HCPCS: 73100

== ENCOUNTER → 2018-11-24 09:27 | Outpatient (BNVA) | payer MEDICARE, OTHER, SELFPAY | PROVIDERS: PCP Family Medicine; Visit Provider Student in an Organized Health Care Education/Training Program | DX: I48.2 Chronic atrial fibrillation (principal); I42.9 Cardiomyopathy, unspecified; I08.0 Rheumatic disorders of both mitral and aortic valves; Z79.01 Long term (current) use of anticoagulants | CPT/HCPCS: 99215 ==

== ENCOUNTER 2018-11-24 10:07 | Outpatient (CLI) | payer MEDICARE, OTHER, SELFPAY ==
[2018-11-24 10:30] LABS: HCT 43.7 % (40.0-50.0); HGB 14.8 g/dL (13.5-17.5); Mean Corp. HGB Concentration 33.9 g/dL (32.0-36.0); Mean Corpuscular Hemoglobin 29.7 pg (27.0-33.0); Mean Corpuscular Volume 87.6 fL (80-95); Mean Platelet Volume 9.9 fL (8.0-11.0); Platelet Count 185 x1000/uL (130-400); RBC 4.99 m/cumm (4.50-6.00); White Blood Cell Count 7.39 k/cumm (4.4-10.8)
[2018-11-24 11:40] LABS: ALT 23 U/L (12-78); AST 13 U/L (15-37); Albumin 3.6 g/dL (3.4-5.0); Alkaline Phosphatase 91 U/L (46-116); Anion Gap 7.7 mmol/L (3-11); BUN 25 mg/dL (7-18); Bilirubin, Direct 0.13 mg/dL (0.00-0.20); Bilirubin, Total 0.4 mg/dL (0.2-1.0); CO2 28.3 mmol/L (21.0-32.0); CREATININE 1.75 mg/dL (0.70-1.30); Calcium 8.6 mg/dL (8.5-10.1); Chloride 103 mmol/L (98-107); Estimated GFR 37.79 (mL/min/1.73m2); Glucose 121 mg/dL (70-100); Magnesium 1.9 mg/dL (1.8-2.4); NT-proBNP 1192 pg/mL; Potassium 4.1 mmol/L (3.5-5.1); Sodium 139 mmol/L (136-145); Total Protein 6.2 g/dL (6.4-8.2)
== END 2018-11-24 10:27 ==
PROVIDERS: PCP Family Medicine; Visit Provider Student in an Organized Health Care Education/Training Program
DX: I34.0 Nonrheumatic mitral (valve) insufficiency (principal); I48.2 Chronic atrial fibrillation; I42.8 Other cardiomyopathies; I49.5 Sick sinus syndrome; I42.9 Cardiomyopathy, unspecified; I08.0 Rheumatic disorders of both mitral and aortic valves; Z79.01 Long term (current) use of anticoagulants
CPT/HCPCS: 36415; 80048; 80076; 85027; 99215; 83735; 83880

== ENCOUNTER 2018-12-01 09:03 | Outpatient (CLI) | payer MEDICARE, OTHER, SELFPAY ==
--- NOTE | 2018-12-01 08:54 | DI.RAD_ITS ---
SYMPTOMS/DIAGNOSIS: F/U PINNING FOR DISTAL RADIUS FRACTURE RIGHT WRIST: Two views. Comparison 11/17/18. There are again seen percutaneous pins transfixing the distal right radial fracture. No change in alignment of the orthopedic hardware or fracture components is seen. The ulnar styloid process fracture appears stable. No new fractures are present. Vascular calcifications are identified.
== END 2018-12-01 09:23 ==
PROVIDERS: PCP Family Medicine; Referring Provider Family Medicine; Visit Provider Orthopaedic Surgery
DX: S52.501A Unspecified fracture of the lower end of right radius, initial encounter for closed fracture; S52.601A Unspecified fracture of lower end of right ulna, initial encounter for closed fracture; X58.XXXA Exposure to other specified factors, initial encounter; I10 Essential (primary) hypertension; J44.9 Chronic obstructive pulmonary disease, unspecified; Z87.891 Personal history of nicotine dependence
CPT/HCPCS: 73100; L3908

== ENCOUNTER 2018-12-10 02:07 | Outpatient (CLI) | payer MEDICARE, OTHER, SELFPAY ==
--- NOTE | 2018-12-10 13:40 | MERGE_ITS ---
*[facility]* *[facility]* [address] [place] [address] Date of study: 12/10/2018 Transthoracic Echocardiography M-mode, complete 2D, complete spectral Doppler, and color Doppler *STUDY CONCLUSIONS* Summary: 1. Left ventricle: The cavity size was normal. Systolic function was mildly to moderately reduced. The estimated ejection fraction was 40-45%. Diffuse hypokinesis. Severe hypokinesis of the inferolateral and apical myocardium. LVEF < 60%, ESD > 40mm. The tissue Doppler parameters were normal. There was no evidence of elevated ventricular filling pressure by Doppler parameters. 2. Aortic valve: There was mild regurgitation. 3. Mitral valve: There was severe regurgitation. 4. Left atrium: The atrium was severely dilated. 5. Right ventricle: The cavity size was normal. Wall thickness was normal. Systolic function was normal. 6. Right atrium: The atrium was severely dilated. 7. Atrial septum: No defect or patent foramen ovale was identified. 8. Tricuspid valve: There was mild-moderate regurgitation. 9. Pulmonary arteries: Pulmonary systolic pressure was >= 35mm Hg. 10. Inferior vena cava: Poorly visualized. *PATIENT PRESENTATION* Height: 175.3cm ((69in) ) S/D Pressure: 130 / 70 Weight: 94.3kg ((207.6lb) ) BSA: 2.17m^2 Test start time: 01:45 PM. Test stop time: 03:00 PM. PERFORMING Unknown ORDERING Gavin Low REFERRING Gavin Low CONSULTING oRnald Irby [facility] MANAGER RETAIL [place]en [place] RT (R)(CT), [facility] *PROCEDURE DATA* Procedure information: The patient was identified by two identifiers. This study was interpreted by [facility]. Pertinent images and digital data are archived for permanent storage and are available for subsequent review. Comparison was made to the study of 06/11/2016. Study status: Routine. Transthoracic echocardiography. M-mode, complete 2D, complete spectral Doppler, and color Doppler. A Transthoracic Echocardiogram was performed. Scanning was performed from the parasternal, apical, subcostal, and suprasternal notch acoustic windows. Images were obtained using an [id number] cardiac ultrasound machine. Image quality was adequate. Study completion: The patient tolerated the procedure well. 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 Systolic function was mildly to moderately reduced. The estimated ejection fraction was 40-45%. Diffuse hypokinesis. Regional wall motion abnormalities: Severe hypokinesis of the inferolateral and apical myocardium. The tissue Doppler parameters were normal. There was no evidence of elevated ventricular filling pressure by Doppler parameters. Aortic valve: Trileaflet. Doppler: There was no stenosis. There was mild regurgitation. VTI ratio of LVOT to aortic valve: 0.5. Valve area (VTI): 1.7cm^2. Indexed valve area (VTI): 0.8cm^2/m^2. Peak velocity ratio of LVOT to aortic valve: 0.63. Valve area (Vmax): 2.2cm^2. Indexed valve area (Vmax): 1cm^2/m^2. Mean velocity ratio of LVOT to aortic valve: 0.62. Valve area (Vmean): 2.2cm^2. Indexed valve area (Vmean): 1cm^2/m^2. Mean gradient (S): 3.2mm Hg. Peak gradient (S): 4.7mm Hg. Aorta: Aortic root: The aortic root was normal in size. Ascending aorta: The ascending aorta was moderately dilated. Mitral valve: Doppler: There was no evidence for stenosis. There was severe regurgitation. Valve area by pressure half-time: 5.3cm^2. Indexed valve area by pressure half-time: 2.4cm^2/m^2. Peak gradient (D): 3.4mm Hg. Left atrium: The atrium was severely dilated. Atrial septum: No defect or patent foramen ovale was identified. Right ventricle: The cavity size was normal. Wall thickness was normal. Systolic function was normal. Pulmonic valve: Doppler: There was no evidence for stenosis. There was mild regurgitation. Peak gradient (S): 2.3mm Hg. Tricuspid valve: Doppler: There was mild-moderate regurgitation. Pulmonary artery: Poorly visualized. Pulmonary systolic pressure was >= 35mm Hg. Right atrium: The atrium was severely dilated. Pericardium: There was no pericardial effusion. Systemic veins: Inferior vena cava: Poorly visualized. Baseline ECG: Atrial fibrillation. Measurements Left ventricle Value Reference LV ID, ED, PLAX 5.8 cm 3.5 - 6.0 LV ID, ES, PLAX (H) 4.8 cm 2.1 - 4.0 LV PW thickness, ED, PLAX 1.0 cm LV end-diastolic volume, 1-p A2C 96 ml LV ejection fraction, 1-p A2C 41 % LV end-diastolic volume, 1-p A4C 119 ml LV ejection fraction, 1-p A4C 41 % LV e', lateral 0.11 m/sec LV E/e', lateral 8 LV e', medial 0.068 m/sec LV E/e', medial 14 LV e', average 0.089 m/sec LV E/e', average 10 Ventricular septum Value Reference IVS thickness, ED, PLAX 1.2 cm LVOT Value Reference LVOT ID, A-P 2.1 cm LVOT area 3.5 cm^2 LVOT peak velocity, S 0.69 m/sec LVOT mean velocity, S 0.54 m/sec LVOT VTI, S 12.0 cm LVOT peak gradient, S 1.9 mm Hg LVOT mean gradient, S 1.3 mm Hg Stroke volume (SV), LVOT DP 42 ml Stroke index (SV/bsa), LVOT DP 19 ml/m^2 Aortic valve Value Reference Aortic valve peak velocity, S 1.1 m/sec Aortic valve mean velocity, S 0.87 m/sec Aortic valve VTI, S 24.0 cm Aortic mean gradient, S 3.2 mm Hg Aortic peak gradient, S 4.7 mm Hg VTI ratio, LVOT/AV 0.5 Aortic valve area, VTI 1.7 cm^2 Velocity ratio, peak, LVOT/AV 0.63 Aortic valve area, peak velocity 2.2 cm^2 Velocity ratio, mean, LVOT/AV 0.62 Aortic valve area, mean velocity 2.2 cm^2 Aortic valve area/bsa, mean velocity 1 cm^2/m^2 Aorta Value Reference Aortic root ID, ED 3.9 cm Ascending aorta ID, A-P, S 4.1 cm Left atrium Value Reference LA ID, A-P, ES 5.9 cm LA ID/bsa, A-P (H) 2.7 cm/m^2 <=2.2 LA area, ES, A4C (H) 40.2 cm^2 8.8 - 23.4 LA area, ES, A2C 36 cm^2 LA volume/bsa, ES, 1-p A4C 80 ml/m^2 LA volume, ES, 2-p 155 ml LA volume/bsa, ES, 2-p 72 ml/m^2 LA/aortic root ratio 1.5 Mitral valve Value Reference Mitral E-wave peak velocity 0.93 m/sec Mitral deceleration time (L) 144 ms 150 - 230 Mitral pressure half-time 42 ms Mitral peak gradient, D 3.4 mm Hg Mitral valve area, PHT, DP 5.3 cm^2 Pulmonary veins Value Reference Pulmonary vein peak velocity, S 0.3 m/sec Pulmonary vein peak velocity, D 0.66 m/sec Pulmonary vein velocity ratio, peak, 0.45 S/D Tricuspid valve Value Reference Tricuspid regurg peak velocity 3.4 m/sec Tricuspid peak RV-RA gradient 45.1 mm Hg Right atrium Value Reference RA area, ES, A4C (H) 30.7 cm^2 8.3 - 19.5 Pulmonic valve Value Reference Pulmonic peak gradient, S 2.3 mm Hg Legend: (L) and (H) jeanmarie values outside specified reference range. I have personally reviewed the images and have reviewed and edited the reported findings. Electronically signed by Anuel Chacon MD 12/12/2018 09:58
== END 2018-12-10 02:27 ==
PROVIDERS: PCP Family Medicine; Visit Provider Student in an Organized Health Care Education/Training Program
DX: I08.3 Combined rheumatic disorders of mitral, aortic and tricuspid valves (principal); I51.7 Cardiomegaly; I42.8 Other cardiomyopathies; I48.2 Chronic atrial fibrillation
CPT/HCPCS: 93306

== ENCOUNTER 2018-12-29 09:44 | Outpatient (CLI) | payer MEDICARE, OTHER, SELFPAY ==
--- NOTE | 2018-12-29 09:26 | DI.RAD_ITS ---
SYMPTOM/DIAGNOSIS: F/U RIGHT WRIST: Comparison is made with previous exam of 12/01. Fixation pins have been removed from the distal radius. The fracture remains in good position. An ulnar styloid fracture is unchanged as well.
== END 2018-12-29 10:04 ==
PROVIDERS: PCP Family Medicine; Referring Provider Family Medicine; Visit Provider Orthopaedic Surgery
DX: S52.551D Other extraarticular fracture of lower end of right radius, subsequent encounter for closed fracture with routine healing; S52.611D Displaced fracture of right ulna styloid process, subsequent encounter for closed fracture with routine healing; W00.0XXD Fall on same level due to ice and snow, subsequent encounter
CPT/HCPCS: 73100

== ENCOUNTER → 2019-01-05 10:10 | Outpatient (BNVA) | payer MEDICARE, OTHER, SELFPAY | PROVIDERS: PCP Family Medicine; Visit Provider Student in an Organized Health Care Education/Training Program | DX: I48.2 Chronic atrial fibrillation (principal); I42.8 Other cardiomyopathies; I08.0 Rheumatic disorders of both mitral and aortic valves; J44.9 Chronic obstructive pulmonary disease, unspecified; I10 Essential (primary) hypertension | CPT/HCPCS: 99214 ==

== ENCOUNTER → 2019-01-10 08:32 | Outpatient (BNVA) | payer MEDICARE, OTHER, SELFPAY | PROVIDERS: PCP Family Medicine; Referring Provider Family Medicine; Visit Provider Surgery | DX: K64.9 Unspecified hemorrhoids (principal); K21.9 Gastro-esophageal reflux disease without esophagitis; M62.08 Separation of muscle (nontraumatic), other site; J44.9 Chronic obstructive pulmonary disease, unspecified; Z87.891 Personal history of nicotine dependence; I10 Essential (primary) hypertension | CPT/HCPCS: 99212; 99214 ==

== ENCOUNTER → 2019-01-24 11:01 | Outpatient (BNVA) | payer MEDICARE, OTHER, SELFPAY | PROVIDERS: PCP Family Medicine; Referring Provider Family Medicine; Visit Provider Surgery | DX: R10.13 Epigastric pain (principal); R10.32 Left lower quadrant pain; I10 Essential (primary) hypertension; J44.9 Chronic obstructive pulmonary disease, unspecified | CPT/HCPCS: 99212; 99213 ==

== ENCOUNTER 2019-01-28 01:29 | Outpatient (CLI) | payer MEDICARE, OTHER, SELFPAY ==
[2019-01-28 08:11] LABS: CREATININE 1.57 mg/dL (0.70-1.30); Estimated GFR 42.72 (mL/min/1.73m2)
[2019-01-28] MEDS: Omnipaque 350 MG/ML 100 ML BTL IJ (09:22)
--- NOTE | 2019-01-28 09:27 | DI.CT_ITS ---
SYMPTOM/DIAGNOSIS: ABD/EPIGASTRIC/LLQ PAIN R10.13, R10.[address]: 01/28 CT examination of the abdomen and pelvis was performed with a bolus infusion of 100 cc Omnipaque 350. There is mild cardiomegaly. There are chronic mild ground glass opacities in both lung bases. There appears to be mild hepatic steatosis. No focal hepatic lesion identified. Gallbladder has been surgically removed. No biliary dilatation seen. Pancreas is unremarkable in appearance. Small bilateral adrenal nodules noted, unchanged from previous CT of 02/2008. Multiple renal cysts noted bilaterally, no evidence of urinary tract obstruction or calcification. Urinary bladder has a thickened wall and there appear to be multiple bladder diverticula, the findings are suggestive of chronic bladder outlet obstruction. Prostate is moderately enlarged. No significant abdominal wall hernia seen. Small fat containing umbilical hernia noted. Small left fat containing hernia noted. Appendix is normal. No evidence of diverticulitis. Mild colonic diverticulosis noted. Small descending colon, apparent epiploic appendage noted without evidence of acute inflammation. No evidence of bowel obstruction. Abdominal aorta is of normal diameter and abdominal branches of the aorta are unremarkable. No abdominal or pelvic adenopathy seen. CONCLUSION: No acute findings. Findings consistent with chronic bladder outlet obstruction with thick-walled urinary bladder and multiple bladder diverticula
[2019-01-28] MEDS: Omnipaque 350 MG/ML 50 ML BTL IJ (09:35)
[2019-01-28] MEDS: Normal Saline Flush 10 ML SYR IVP (09:35)
[2019-01-28] MEDS: Breeza Beverage 473 ML BTL PO ×2 (09:36→09:37)
== END 2019-01-28 01:49 ==
PROVIDERS: PCP Family Medicine; Visit Provider Surgery
DX: R10.13 Epigastric pain (principal); R10.32 Left lower quadrant pain; N32.0 Bladder-neck obstruction; N32.89 Other specified disorders of bladder; N32.3 Diverticulum of bladder; I51.7 Cardiomegaly; R91.8 Other nonspecific abnormal finding of lung field; K76.0 Fatty (change of) liver, not elsewhere classified; N28.1 Cyst of kidney, acquired
CPT/HCPCS: 74177; 82565; J3490; Q9967

== ENCOUNTER 2019-03-07 07:52 | Emergency (ER) | payer MEDICARE, OTHER, SELFPAY ==
[2019-03-07] VITALS (20 sets, daily range): BP systolic 127–147; BP diastolic 68–91; PULSE 52–82; RESP 10–51; TEMP 36.7; O2SAT 91–97
--- NOTE | 2019-03-07 07:50 | W.ED.GENAD ---
Discharge Plan Disposition Patient Disposition: HOME Condition: Good Discharge Details Chief Complaint: Dizzy/Sync Clinical Impression: Vertigo Primary Care Provider: Ronald Irby ED Provider: Taras Mckinney Home Meds and New Rx's Prescriptions: New meclizine 25 mg tablet 25 mg PO TID PRN (Reason: dizziness) Qty: 14 RF: 0 No Action furosemide 40 mg tablet 20 mg PO DAILY RF: 0 potassium chloride 20 mEq tablet,ER particles/crystals 20 meq PO DAILY RF: 0 sucralfate 1 gram tablet 1 gm PO TID Qty: 270 RF: 3 hydrocortisone [Preparation H Hydrocortisone] 1 % cream 1 applic TP BID Qty: 26 RF: 3 rabeprazole [Aciphex] 20 mg tablet,delayed release (DR/EC) 20 mg PO BID Qty: 60 RF: 12 hemp PO DAILY RF: 0 coenzyme [id number] E [Co Q-10 (with Vit E)] 1 EACH capsule 1 tab PO DAILY RF: 0 Lactobacillus acidophilus 1 EACH tablet 1 ea PO DAILY Qty: 1 RF: 0 doxazosin 4 mg tablet 4 mg PO HS Qty: 90 RF: 4 paroxetine HCl [Paxil] 20 mg tablet 20 mg PO DAILY Qty: 90 RF: 4 Eliquis 5 mg tablet 5 mg PO BID Qty: 180 RF: 4 Spiriva with HandiHaler 18 mcg capsule, w/inhalation device 1 cap Inhalation DAILY Qty: 3 RF: 4 finasteride 5 mg tablet 5 mg PO HS Qty: 90 RF: 4 pantoprazole 40 mg tablet,delayed release (DR/EC) 40 mg PO BID Qty: 180 RF: 3 Excedrin Tension Headache 500-65 mg tablet 2 tab PO BID PRNRF: 0 metoprolol succinate [Toprol XL] 50 mg tablet extended release 24 hr 25 mg PO DAILY Qty: 45 RF: 4 Discharge Instructions Instructions: Vertigo (ED) Additional Instructions: At this time your CT scan including your scan of the vessels in your head and neck is negative for any concerning process per our radiologist. His symptoms have notably improved from before. I do feel that your symptoms may be secondary to vertigo. Please take the meclizine as directed. Please drink plenty of water throughout the day peer if you notice any worsening of your symptoms, or any new symptoms such as vomiting, diarrhea, fever, chills, shortness of breath, chest pain, numbness, weakness, or fainting , please return immediately to the emergency department for reevaluation. Please follow up with your primary care provider as soon as possible for reassessment and reevaluation. As always, it was a pleasure participating in your medical care today. Referrals: Ronald Irby MD [Primary Care Provider] - Medical Decision Making This is an 78-year-old male with a past medical history of A. fib on Eliquis, hypertension, coronary artery disease, COPD who presents today for evaluation of atypical syncope versus dizziness. He presents by EMS. This morning he has had 6 episodes of what he has difficulty describing in detail. The symptoms appear to be an odd sensation that occurs when he turns his head or body to the left of the right. He does state that he heard an associated pop in his left neck whenever he would do this. The episodes caused him to feel like he wants to pass out, but never actually does. He does have chronic tinnitus, and states that this is different than this. He states that this is also different than previous episodes of vertigo that he has had. He states that the symptoms do not occur when he is sitting upright or standing upright. Physical exam is notably benign, no neurologic deficits, he is able to ambulate well without difficulty, no dysdiadochokinesia or dysmetria. Cerebellar function testing demonstrates a negative test of skew. He does have a positive head impulse test when turned quickly to the right and the left, however he states that this brings about symptoms different than what he is feeling this morning. He denies any other concerning red flags, no history of headache. He denies any falls or trauma. He shows no other abnormalities on his physical exam, most definitely no neurologic abnormalities. Differential is broad, certainly does include atypical vertigo, dehydration, electrolyte disturbance, atrial fib episode. Stroke he is on the differential but appears unlikely and clinically inconsistent with his current exam. We will get CT imaging of his head neck to rule out acute process, aneurysm, or other significant abnormality. Perform cardiac work-up, gently rehydrate and reassess. 10:[address] scan of the head without contrast and CT angios of the head and neck have returned with no acute process per Dr. Gould radiology. Laboratory work-up is returned relatively benign. No white count, no anemia, normal electrolytes, renal function stable and unchanged. Troponin is less than 0.05. EKG is unchanged from prior EKGs from 04/07/2018. Although the TSH is elevated the free T4 is normal. Patient was gently rehydrated, he was given meclizine on arrival. On reassessment the patient is doing very well. His neuro exam continues to be benign with no focal neurologic deficits. No evidence of cerebellar dysfunction. After the benign work-up and repeat neuro exam we did roll him over multiple times in bed to reproduce the events that brought his symptoms on initially. And at this time he is no return of his initial symptoms. He does feel minimally dizzy with these movements but denies and all the severity of symptoms he had before. Patient denies any other complaints. He continues to ambulate well. He had a long discussion about observation versus discharge and at this time family feels comfortable with discharge and would like to go home. Respecting their wishes patient and family will be discharged home with meclizine and close follow-up with his primary care provider. With no inability to ambulate, no neurologic deficits, no signs of severe concerning vertigo, or cerebellar dysfunction feel that this plan is notably reasonable. We had a long discussion regarding red flags which to return, the importance of hydration, the importance of close follow-up with his PCP Dr. Irby. I feel his signs and symptoms at this time are consistent with mild vertigo, and inconsistent with stroke, TIA, dissection, STEMI, or other life-threatening abnormality at this time. EKG 7: 57 Rate 77, QTc 496, QRS 124, atrial fibrillation with ectopic beats, notable artifact, no significant ST elevations or depressions. Suspected anterior fascicular block. No evidence of STEMI. SYMPTOM/DIAGNOSIS: CHRONIC CHEST PAIN, SYNCOPE PA AND LATERAL CHEST: The heart size is normal. The aorta is tortuous. There are mild fibrotic changes. IMPRESSION: No acute abnormality. Ordered By: Taras Mckinney DO CC: [facility] General Date/Time Provider Initiated Documentation: 03/07/19 08:07. HPI Narrative: This is an 78-year-old male with a past medical history of atrial fibrillation, hypertension, COPD, coronary artery disease, on Eliquis for his atrial fibrillation who presents today for evaluation of syncope/dizziness. The patient is a notably poor historian. He presents today via EMS. Patient states that this morning he woke up and when he turned his body to either the left of the right he would feel very weird. He described episodes using the word fainting, however he never lost consciousness. He states that he would feel odd, he would have a fullness in his ears bilaterally, feel very dizzy, and feel like he wanted to pass out. This happened 6 times this morning. He denies any significant vision changes, dark curtains coming down over his vision, headache, neck pain. He denies any recent falls or trauma. Symptoms would not occur when he was sitting up or standing upright. It was only present when he was lying down flat. He states that he does have chronic tinnitus, but denies any changes for this. He states that he has had vertigo in the past and feels that this is completely different than his chronic vertigo. He denies any numbness or tingling. He denies any focal weakness. He denies ever having any symptoms like this before. Patient does admit to chest pain, however he states that he has chronic chest pain every day all day for years. He states that this is completely unchanged non-altered compared to his normal. He does admit to some epigastric fullness which he states is slightly different than normal. Patient denies any other complaints at this time. His symptoms continue to be related to urge with turning his head while he is lying flat. Improved by nothing. He denies any other modifying factors. He denies any recent surgeries, IV or illicit drug use, or pertinent family history. Related Data Home Medications Medication Instructions Recorded Confirmed coenzyme [id number] E [Co Q-10 1 tab PO DAILY 07/15/13 03/07/19 (with Vit E)] Lactobacillus acidophilus 1 ea PO DAILY #1 12/09/16 03/07/19 hydrocortisone 1 % topical cream 1 applic TP BID #26 gm 05/19/18 03/07/19 sucralfate 1 gram tablet 1 gm PO TID #270 tab 05/19/18 03/07/19 doxazosin 4 mg tablet 4 mg PO HS #90 tab-cap 06/01/18 03/07/19 paroxetine HCl 20 mg tablet 20 mg PO DAILY #90 tab-cap 10/11/18 03/07/19 apixaban 5 mg tablet 5 mg PO BID #180 tab 11/15/18 03/07/19 tiotropium bromide 18 mcg capsule 1 cap INHALATION DAILY #3 each 11/16/18 03/07/19 with inhalation device finasteride 5 mg tablet 5 mg PO HS #90 tab 11/26/18 03/07/19 pantoprazole 40 mg tablet,delayed 40 mg PO BID #180 tab-cap 12/03/18 03/07/19 release acetaminophen-caffeine 500 mg-65 2 tab PO BID PRN 01/05/19 03/07/19 mg tablet furosemide 40 mg tablet 20 mg PO DAILY tab-cap 01/05/19 03/07/19 metoprolol succinate 50 mg 25 mg PO DAILY #45 tab-cap 01/05/19 03/07/19 tablet,extended release 24 hr potassium chloride 20 mEq 20 meq PO DAILY tab-cap 01/05/19 03/07/19 tablet,extended release(part/cryst) rabeprazole 20 mg tablet,delayed 20 mg PO BID #60 tab 01/10/19 03/07/19 release hemp PO DAILY 01/24/19 02/16/19 meclizine 25 mg PO TID PRN #14 tab 03/07/19 Previous Rx's Medication Instructions Recorded hydrocortisone 1 % topical cream 1 applic TP BID #26 gm 05/19/18 sucralfate 1 gram tablet 1 gm PO TID #270 tab 05/19/18 doxazosin 4 mg tablet 4 mg PO HS #90 tab-cap 06/01/18 paroxetine HCl 20 mg tablet 20 mg PO DAILY #90 tab-cap 10/11/18 apixaban 5 mg tablet 5 mg PO BID #180 tab 11/15/18 tiotropium bromide 18 mcg capsule 1 cap INHALATION DAILY #3 each 11/16/18 with inhalation device finasteride 5 mg tablet 5 mg PO HS #90 tab 11/26/18 pantoprazole 40 mg tablet,delayed 40 mg PO BID #180 tab-cap 12/03/18 release rabeprazole 20 mg tablet,delayed 20 mg PO BID #60 tab 01/10/19 release meclizine 25 mg PO TID PRN #14 tab 03/07/19 Allergies Allergy/AdvReac Type Severity Reaction Status Date / Time pravastatin AdvReac Severe ABDOMINAL Verified 03/07/19 08:00 PAIN General JOE: 3 Review of Systems Review of Systems All systems reviewed & are unremarkable except as noted in HPI and below PFSH Social History Smoking/Tobacco Use Status: Former Tobacco Use Quit Date: 08/03/85 Alcohol Intake: current Alcohol Intake frequency: a few times a week Alcohol type: beer Drug use: Never Substance use type: does not use Aleyda/Yarsanism: No preference Special aleyda needs: No Do you feel safe at home: Yes Do you feel safe in your relationship?: Yes Exam Narrative Exam Narrative: 1.Const: Well-nourished, Well-developed, appearing stated age 2.Eyes: PERRL, no conjunctival injection, and symmetrical lids. 3.ENT: Atraumatic external nose and ears. Moist MM. Neck: Symmetric, trachea midline, No thyromegaly. 4.CVS: +S1/S2, No murmurs or gallops. Peripheral pulses 2+ and equal in all extremities. Brisk capillary refill in all extremities. Radial pulse +2 bilaterally. No carotid or vertebral artery bruit. 5.RESP: Unlabored respiratory effort. Clear to auscultation bilaterally. No wheezes rales or rhonchi 6.GI: Soft, Nontender/Nondistended, No hepatosplenomegaly. No guarding or rebound. 7.MSK: Normocephalic/Atraumatic, Extremities w/o deformity or ttp No cyanosis or clubbing, Normal movement of all extremities 8.Skin: Warm, Dry. No rashes or lesions. 9.Neuro: mobile home set up person II-XII grossly intact. Sensation grossly intact, no focal neurologic deficits. All 6 cardinal planes of vision are fully intact. No evidence of rotatory or vertical nystagmus. The patient demonstrated a normal [id number], good dexterity. There was no evidence of dysdiadochokinesia. Patient was able to ambulate without difficulty. There was no wide-based gait. He is able to ambulate well without any difficulty or ataxia. Romberg, and [id number] are both normal on testing. Sensation was intact bilaterally as well as muscle strength bilaterally for all extremities. Patient was able to verbalize butter cup with no slurring, or miss pronunciation. Cerebellar function testing is normal. The patient demonstrates a normal hints exam with no findings concerning for a central event. No vertical nystagmus. There is minimal questionable left-sided horizontal nystagmus which is very subtle. Head impulse test is positive for a correction factor, however the patient makes it very clear that this is not similar to the symptoms that he was having this morning. normal test of skew. No suggestion of a central cerebellar event. 10.Psych: (AAO) x3. Appropriate mood and affect
[2019-03-07 08:06] LABS: Abs Immature Grans 0.03 k/cumm (0.0-0.09); Absolute Basophil Count 0.03 k/cumm (0.0-0.2); Absolute Eosinophil Count 0.04 k/cumm (0.0-0.7); Absolute Lymphocyte Count 1.58 k/cumm (1.2-3.4); Absolute Monocyte Count 0.72 k/cumm (0.11-0.7); Absolute Neutrophil Count 4.19 k/cumm (1.2-6.7); Basophils % 0.5; Eosinophils % 0.6; HCT 43.9 % (40.0-50.0); HGB 14.8 g/dL (13.5-17.5); Immature Grans % 0.5; Mean Corp. HGB Concentration 33.7 g/dL (32.0-36.0); Mean Corpuscular Hemoglobin 29.4 pg (27.0-33.0); Mean Corpuscular Volume 87.1 fL (80-95); Mean Platelet Volume 9.9 fL (8.0-11.0); Monocytes % 10.9; Neutrophils % 63.5; Platelet Count 169 x1000/uL (130-400); RBC 5.04 m/cumm (4.50-6.00); RBC Distribution Width 12.9 % (11.8-14.1); White Blood Cell Count 6.59 k/cumm (4.4-10.8)
--- NOTE | 2019-03-07 08:11 | DI.RAD_ITS ---
SYMPTOM/DIAGNOSIS: CHRONIC CHEST PAIN, SYNCOPE PA AND LATERAL CHEST: The heart size is normal. The aorta is tortuous. There are mild fibrotic changes. IMPRESSION: No acute abnormality.
[2019-03-07] MEDS: Meclizine 25 MG TAB PO (08:13)
[2019-03-07] MEDS: Normal Saline 500 ML 1000 ML IV (08:14)
[2019-03-07 08:28] LABS: ALT 14 U/L (12-78); AST 7 U/L (15-37); Albumin 3.5 g/dL (3.4-5.0); Alkaline Phosphatase 80 U/L (46-116); Anion Gap 8.9 mmol/L (3-11); BUN 17 mg/dL (7-18); Bilirubin, Total 0.6 mg/dL (0.2-1.0); CO2 27.1 mmol/L (21.0-32.0); CREATININE 1.53 mg/dL (0.70-1.30); Calcium 8.2 mg/dL (8.5-10.1); Chloride 105 mmol/L (98-107); Estimated GFR 44.01 (mL/min/1.73m2); Glucose 148 mg/dL (70-100); Lipase 65 U/L (73-393); Potassium 4.2 mmol/L (3.5-5.1); Sodium 141 mmol/L (136-145); Total Protein 6.7 g/dL (6.4-8.2); Troponin I < 0.05 ng/mL (0.00-0.06)
[2019-03-07 08:35] LABS: INR 1.2 (0.9-1.1); PTT Activated 24.5 sec (21.0-31.4); Prothrombin Time 11.6 sec (9.3-11.0)
[2019-03-07 08:43] LABS: FREE T4 0.98 ng/dL (0.76-1.46)
--- NOTE | 2019-03-07 09:16 | DI.CT_ITS ---
SYMPTOM/DIAGNOSIS: SYNCOPE, DIZZY, LT NECK POPPING NONCONTRAST HEAD CT: Comparison is made with 01/02/12. Atrophy and white matter changes of small vessel disease are again noted. There is no evidence of an acute infarct or acute hemorrhage. The ventricles are unchanged in size. There is no skull fracture or sinus disease. IMPRESSION: Stable atrophy and small vessel disease. No acute abnormality. CTA HEAD AND NECK: CT angiography was performed with multi slice acquisition and multi planar and 3D reconstruction. The exam is somewhat limited by mild patient motion. There is some calcification at the right common carotid bulb but no significant stenosis. There is no evidence of vascular occlusion or dissection. The right vertebral artery is dominant. The [place] tribe of colon vasculature appears intact. There are degenerative changes in the cervical spine. Emphysematous changes are noted at the lung apices. IMPRESSION: No acute abnormality.
[2019-03-07] MEDS: Omnipaque 350 MG/ML 100 ML BTL IJ (10:05)
[2019-03-07] MEDS: Normal Saline Flush 10 ML SYR IVP (10:06)
[2019-03-07] MEDS: Omnipaque 350 MG/ML 50 ML BTL IJ (10:06)
== END 2019-03-07 10:22 | disposition home or self-care (01) ==
PROVIDERS: Emergency Provider Student in an Organized Health Care Education/Training Program; PCP Family Medicine
DX: R42 Dizziness and giddiness (principal); I10 Essential (primary) hypertension; I48.91 Unspecified atrial fibrillation; Z79.01 Long term (current) use of anticoagulants; J44.9 Chronic obstructive pulmonary disease, unspecified; Z87.891 Personal history of nicotine dependence
CPT/HCPCS: 36415; 70496; 70498; 80053; 83690; 93005; 99285; 70450; 71046; 84439; 84443; 84484; 85025; 85610; 85730; 93010; J3490; Q9967

== ENCOUNTER → 2019-04-27 12:47 | Outpatient (BNVA) | payer MEDICARE, OTHER, SELFPAY | PROVIDERS: PCP Family Medicine; Visit Provider Student in an Organized Health Care Education/Training Program | DX: R10.32 Left lower quadrant pain (principal); R10.13 Epigastric pain; I34.0 Nonrheumatic mitral (valve) insufficiency; I42.9 Cardiomyopathy, unspecified; I48.2 Chronic atrial fibrillation | CPT/HCPCS: 99215 ==

== ENCOUNTER 2019-05-21 12:49 | Emergency (ER) | payer MEDICARE, OTHER, SELFPAY ==
[2019-05-21] VITALS (25 sets, daily range): BP systolic 103–135; BP diastolic 43–100; PULSE 36–124; RESP 14–21; TEMP 36.6; O2SAT 92–98
--- NOTE | 2019-05-21 12:57 | DI.RAD_ITS ---
EXAM: XR PORTABLE CHEST AP CLINICAL HISTORY: shortness of breath TECHNIQUE: Portable AP view of the chest was obtained. COMPARISON: XR CHEST 2V PA LATERAL from 03/07/2019 FINDINGS: The examination is compared with PA and lateral chest of 03/07/2019. Heart is enlarged. There may b e increased cardiomegaly in comparison with the prior PA chest. There is increased intra pulmonary i nterstitial prominence bilaterally, question mild CHF. No gross consolidation seen. IMPRESSION: Question interval development of mild CHF. Appropriate follow-up films requested.
--- NOTE | 2019-05-21 13:07 | W.ED.GENAD ---
Discharge Plan Disposition Patient Disposition: HOME Condition: Stable Discharge Details Chief Complaint: SOB Clinical Impression: Shortness of breath Primary Care Provider: Ronald Irby ED Provider: Anuel Burch Home Meds and New Rx's Prescriptions: New prednisone 20 mg tablet 60 mg PO DAILY 4 Days Qty: 12 RF: 0 Continued furosemide 40 mg tablet 20 mg PO DAILY RF: 0 potassium chloride 20 mEq tablet,ER particles/crystals 20 meq PO DAILY RF: 0 hemp PO DAILY RF: 0 coenzyme [id number] E [Co Q-10 (with Vit E)] 1 EACH capsule 1 tab PO DAILY RF: 0 Lactobacillus acidophilus 1 EACH tablet 1 ea PO DAILY Qty: 1 RF: 0 doxazosin 4 mg tablet 4 mg PO HS Qty: 90 RF: 4 paroxetine HCl [Paxil] 20 mg tablet 20 mg PO DAILY Qty: 90 RF: 4 Eliquis 5 mg tablet 5 mg PO BID Qty: 180 RF: 4 Spiriva with HandiHaler 18 mcg capsule, w/inhalation device 1 cap Inhalation DAILY Qty: 3 RF: 4 finasteride 5 mg tablet 5 mg PO HS Qty: 90 RF: 4 pantoprazole 40 mg tablet,delayed release (DR/EC) 40 mg PO BID Qty: 180 RF: 3 Excedrin Tension Headache 500-65 mg tablet 2 tab PO BID PRNRF: 0 metoprolol succinate [Toprol XL] 50 mg tablet extended release 24 hr 25 mg PO DAILY Qty: 45 RF: 4 sucralfate 1 gram tablet 1 gm PO TID Qty: 270 RF: 3 Discharge Instructions Instructions: Dyspnea (ED) Additional Instructions: increase your lasix from 20mg daily to 40mg daily and follow up with your primary care provider as scheduled on Thursday if you feel you are becoming more ill, have fevers, chest pain/pressure or worsening shortness of breath return to the emergency department Medical Decision Making 1-year-old male with a past medical history of A. fib on Eliquis, hypertension, coronary artery disease, COPD, mitral regurgitation, tachybrady syndrome, who comes in with 3 days of slowly worsening shortness of breath. Denies any fevers, cough, chest pain or pressure. Denies loc or lightheadedeness. He on exam has prolonged expiratory phase with wheezing at the apices bilaterally and in the lower lobes does have crackles, no jvd and does have pitting edema of bilateral lower extremities to the mid tibia. No abdominal tenderness. No calf pain. He does have a mixed presentation of copd and chf, will treat with nebs, steroids and dose of lasix and monitor. Unlikely acs given lack of chest pain and has no hypoxia or tachycardia or evidence of dvt so doubt Pe. He is noted to have HR's in the 40's but states this is normal for him pt remains stable and has urinated over 500cc since lasix. Is speaking in full sentences, labs show elevated probnp otherwise no acute changes from baseline. Xray shows opacities in lung bases that may represent atelectasis vs pna per vrad. He denies any cough or fevers so doubt pna and do not feel abx indicated. Given his complaints and elevated probnp recommended admission but he declined as he feels better, and he has capacity to make his own decisions. Given his vitals are reassuring and his labs are reassuring other than her probnp feel it is reasonable for d/c. he has f/u appt on Thursday with his pcp, will have him increase his lasix dose and start short course of steroids and he understands he needs to return if worsening in any way . pt notes that recently they decreased his lasix from 40mg to 20mg so this may have been what caused him to feel more short of breath and have crackles on exam. Differential Diagnosis Differential Diagnosis: chf, copd, pna Imaging Data Radiologic Study: Attestation: I personally reviewed and interpreted this imaging study as follows: Imaging: X-Ray Radiologist's impression: opacities in both bases may represent atelectasis or pneumonia Lab Data Lab results reviewed: Yes I reviewed the patient's lab results. ECG Data Attestation: I personally reviewed and interpreted this ECG (s) as follows: Prior ECG tracings: not available for review HPI General Mode of arrival: ambulatory. Date/Time Provider Initiated Documentation: 05/21/19 12:53. Limitations to Documentation: no limitations. Information obtained by: patient. History of Present Illness 78 year old M presents to the emergency department with the chief complaint of shortness of breath, described as moderate, Patient started experiencing this day(s) (3) and it has been constant. No relieving factors improve symptom(s), No exacerbating factors reported . Related Data Home Medications Medication Instructions Recorded Confirmed coenzyme [id number] [Co Q-10 1 tab PO DAILY 07/15/13 05/21/19 (with Vit E)] Lactobacillus acidophilus 1 ea PO DAILY #1 12/09/16 05/21/19 doxazosin 4 mg tablet 4 mg PO HS #90 tab-cap 06/01/18 05/21/19 paroxetine HCl 20 mg tablet 20 mg PO DAILY #90 tab-cap 10/11/18 05/21/19 apixaban 5 mg tablet 5 mg PO BID #180 tab 11/15/18 05/21/19 tiotropium bromide 18 mcg capsule 1 cap INHALATION DAILY #3 each 11/16/18 05/21/19 with inhalation device finasteride 5 mg tablet 5 mg PO HS #90 tab 11/26/18 05/21/19 pantoprazole 40 mg tablet,delayed 40 mg PO BID #180 tab-cap 12/03/18 05/21/19 release acetaminophen-caffeine 500 mg-65 2 tab PO BID PRN 01/05/19 05/21/19 mg tablet furosemide 40 mg tablet 20 mg PO DAILY tab-cap 01/05/19 05/21/19 metoprolol succinate 50 mg 25 mg PO DAILY #45 tab-cap 01/05/19 05/21/19 tablet,extended release 24 hr potassium chloride 20 mEq 20 meq PO DAILY tab-cap 01/05/19 05/21/19 tablet,extended release(part/cryst) hemp PO DAILY 01/24/19 04/27/19 sucralfate 1 gram tablet 1 gm PO TID #270 tab 04/28/19 05/21/19 prednisone 60 mg PO DAILY 4 Days #12 tab 05/21/19 Previous Rx's Medication Instructions Recorded doxazosin 4 mg tablet 4 mg PO HS #90 tab-cap 06/01/18 paroxetine HCl 20 mg tablet 20 mg PO DAILY #90 tab-cap 10/11/18 apixaban 5 mg tablet 5 mg PO BID #180 tab 11/15/18 tiotropium bromide 18 mcg capsule 1 cap INHALATION DAILY #3 each 11/16/18 with inhalation device finasteride 5 mg tablet 5 mg PO HS #90 tab 11/26/18 pantoprazole 40 mg tablet,delayed 40 mg PO BID #180 tab-cap 12/03/18 release sucralfate 1 gram tablet 1 gm PO TID #270 tab 04/28/19 prednisone 60 mg PO DAILY 4 Days #12 tab 05/21/19 Allergies Allergy/AdvReac Type Severity Reaction Status Date / Time pravastatin AdvReac Severe ABDOMINAL Verified 05/21/19 12:58 PAIN General Stated Complaint: SOB JOE: 2 Review of Systems Review of Systems ROS Unobtainable: All systems reviewed & are unremarkable except as noted in HPI and below Constitutional Constitutional: Denies chills and Denies fever(s) Cardiovascular Cardiovascular: Denies chest pain Respiratory Respiratory: Denies cough Gastrointestinal Gastrointestinal: Denies abdominal pain, Denies nausea and Denies vomiting Integumentary/Breasts Skin/Breast: Denies rash Psychiatric Psychiatric: Denies depression [facility] Social History Smoking/Tobacco Use Status: Former Tobacco Use Quit Date: 08/03/85 Alcohol Intake: current Alcohol Intake frequency: a few times a week Alcohol type: beer Drug use: Never Substance use type: does not use Aleyda/Samaritan: No preference Special aleyda needs: No Do you feel safe at home: Yes Do you feel safe in your relationship?: Yes Exam Const General: no acute distress Orientation: alert HENMT Head: normal to inspection Ears: external ears normal General nose exam: external nose normal Mouth: moist mucous membranes Eyes General: appearance normal, both eyes and all related structures Neck Neck: normal visual inspection Resp Effort & Inspection: audible wheezes Cardio Rate: regular rate Skin General skin exam: no rashes or lesions noted Neuro General: alert and oriented x3 Extrem General: normal to inspection Psych Mental Status: mental status grossly normal Course Vital Signs Vital signs: Vital Signs Temperature 36.6 C 05/21/19 12:54 Pulse 48 L 05/21/19 12:54 Respiratory Rate 18 05/21/19 12:54 Blood Pressure 134/95 H 05/21/19 12:54 Pulse Oximetry 97 05/21/19 12:54 Temperature 36.6 C 05/21/19 12:54 Temperature Source Oral 05/21/19 12:54 Pulse 48 L 05/21/19 12:54 Respiratory Rate 18 05/21/19 12:54 Respiratory Effort 05/21/19 12:59 Blood Pressure 134/95 H 05/21/19 12:54 Pulse Oximetry 97 05/21/19 12:54 Pain Level 4 05/21/19 12:54
[2019-05-21 13:11] LABS: Abs Immature Grans 0.03 k/cumm (0.0-0.09); Absolute Basophil Count 0.03 k/cumm (0.0-0.2); Absolute Eosinophil Count 0.04 k/cumm (0.0-0.7); Absolute Monocyte Count 0.67 k/cumm (0.11-0.7); Absolute Neutrophil Count 5.41 k/cumm (1.2-6.7); Basophils % 0.4; Eosinophils % 0.5; HCT 42.9 % (40.0-50.0); Immature Grans % 0.4; Lymphocytes % 18.5; Mean Corp. HGB Concentration 32.6 g/dL (32.0-36.0); Mean Corpuscular Hemoglobin 28.7 pg (27.0-33.0); Mean Corpuscular Volume 87.9 fL (80-95); Mean Platelet Volume 10.5 fL (8.0-11.0); Monocytes % 8.8; Neutrophils % 71.4; Platelet Count 200 x1000/uL (130-400); RBC 4.88 m/cumm (4.50-6.00); RBC Distribution Width 14.4 % (11.8-14.1); White Blood Cell Count 7.58 k/cumm (4.4-10.8)
[2019-05-21] MEDS: Furosemide 40 MG/4 ML VIAL IVP (13:11)
[2019-05-21] MEDS: predniSONE 20 MG TAB 60 MG PO (13:11)
[2019-05-21] MEDS: Albuterol/Ipratropium 3 ML UPD VIAL UPD (13:11)
[2019-05-21 13:24] LABS: INR 1.1 (0.9-1.1); PTT Activated 26.2 sec (21.0-31.4); Prothrombin Time 11.3 sec (9.3-11.0)
[2019-05-21 13:32] LABS: ALT 21 U/L (16-63); AST 13 U/L (15-37); Albumin 3.7 g/dL (3.4-5.0); Alkaline Phosphatase 79 U/L (46-116); Anion Gap 9.5 mmol/L (3-11); BUN 20 mg/dL (7-18); Bilirubin, Total 0.7 mg/dL (0.2-1.0); CO2 27.5 mmol/L (21.0-32.0); CREATININE 1.65 mg/dL (0.70-1.30); Calcium 8.1 mg/dL (8.5-10.1); Chloride 106 mmol/L (98-107); Estimated GFR 40.34 (mL/min/1.73m2); Glucose 126 mg/dL (70-100); Magnesium 2.3 mg/dL (1.8-2.4); NT-proBNP 3477 pg/mL; Potassium 4.7 mmol/L (3.5-5.1); Sodium 143 mmol/L (136-145)
[2019-05-21 13:37] LABS: Troponin I < 0.05 ng/mL (0.00-0.06)
--- NOTE | 2019-05-21 14:32 | DI.VRAD_ITS ---
PROCEDURE INFORMATION: Exam: XR Chest, 1 View Exam date and time: 05/21/2019 1:22 PM Clinical history: 78 years old, male; Shortness of breath TECHNIQUE: Imaging protocol: XR of the chest Views: 1 view. COMPARISON: CR XR CHEST 2V PA LATERAL 03/07/2019 8:18 AM FINDINGS: Lungs: Hyperexpanded lung hartley consistent with COPD Opacities in both bases may represent atelectasis or pneumonia. Pleural space: Unremarkable. No pleural effusion. No pneumothorax. Heart/Mediastinum: Cardiomegaly and mild vascular prominence may represent interstitial edema. Vasculature: Tortuous aorta Bones/joints: Degenerative changes along the thoracic spine Other findings: Screw in the right glenoid IMPRESSION: Opacities in both bases may represent atelectasis or pneumonia. Dictated and Authenticated by: Yajaira Han MD. Ordering:RYAN Agee MD
== END 2019-05-21 15:04 | disposition home or self-care (01) ==
PROVIDERS: Emergency Provider Emergency Medicine; PCP Family Medicine
DX: R06.02 Shortness of breath (principal); I48.91 Unspecified atrial fibrillation; Z79.01 Long term (current) use of anticoagulants; I25.10 Atherosclerotic heart disease of native coronary artery without angina pectoris; J44.9 Chronic obstructive pulmonary disease, unspecified; Z87.891 Personal history of nicotine dependence; I10 Essential (primary) hypertension
CPT/HCPCS: 36415; 80053; 93005; 96374; 99285; 71045; 83735; 83880; 84484; 85025; 85610; 85730; 93010; J1940; J7512; J7620

== ENCOUNTER 2019-05-25 12:58 | Inpatient (IN) | payer MEDICARE, OTHER, SELFPAY ==
[2019-05-25] VITALS (97 sets, daily range): BP systolic 87–154; BP diastolic 41–117; PULSE 34–170; RESP 12–30; TEMP 36.5–36.7; O2SAT 87–97
--- NOTE | 2019-05-25 13:32 | ED.GENADUL_ITS ---
Discharge Plan Disposition Patient Disposition: [facility] INPATIENT Condition: Stable Discharge Details Chief Complaint: SOB Clinical Impression: Heart failure Admit Date/Time: 05/25/19 18:32 Admit Provider: Jewel Isaacs Attending Provider: Jewel Isaacs Primary Care Provider: Ronald Irby ED Provider: Garo Mejia Discharge Data Discharge Date/Time-TO BE ENTERED AT DEPARTURE: 05/25/19 21:25 Medical Decision Making 78-year-old male presents with worsening exertional episodes of dyspnea that are accompanied by tightness in his back over weeks time. He has known mitral regurgitation. Was seen in the emergency department on May 21, his Lasix was increased to 40 mg daily. He has a history of A. fib on Eliquis, hypertension, coronary artery disease, COPD, mitral regurgitation, tachybrady syndrome. He arrives to the ED with variable pulse rate down to as low as 40, blood pressure 122/98. Exam with bibasilar rales. Diagnostic studies are notable for a rise of his BNP to 4881 increased from 3400 on the . Renal function has elevated to creatinine of 2.0 with BUN 34. Troponin is negative. Chest x-ray with interstitial edema. Consistent with decompensated acute congestive heart failure. Diuresis initiated. Records reviewed and do note the patient has been referred to [facility] for his mitral regurgitation and as well he has known tachybradycardia syndrome with no plan for implantable device. I feel he would be best managed by admission. Initially, bed not available at this institution, nor at [facility] or [facility]. After evening rounds, bed status improved. Case discussed with hospitalist team and patient admitted. Lab Data Lab results reviewed: Yes I reviewed the patient's lab results. Labs: Laboratory Results - last 24 hr 05/25/19 05/25/19 05/25/19 13:35 13:35 13:35 WBC 10.09 RBC 5.29 Hgb 15.3 Hct 46.5 MCV 87.9 MCH 28.9 MCHC 32.9 RDW 14.4 H Plt Count 250 MPV 10.7 Immature Gran % 0.6 Neutrophils % 85.8 Lymphocytes % 8.5 Monocytes % 4.9 Eosinophils % 0.1 Basophils % 0.1 Absolute Neutrophils 8.66 H Absolute Lymphocytes 0.86 L Absolute Monocytes 0.49 Absolute Eosinophils 0.01 Absolute Basophils 0.01 PT 11.2 H INR 1.1 APTT 25.0 Sodium 139 Potassium 4.3 Chloride 101 Carbon Dioxide 28.2 Anion Gap 9.8 BUN 34 H Creatinine 2.07 H Estimated GFR/1.73 m2 31.05 Glucose 159 H Calcium 8.4 L Magnesium 2.3 Total Bilirubin 0.7 AST 26 ALT 58 Alkaline Phosphatase 75 Troponin I < 0.05 NT-Pro-B Natriuret Pep 4881 H Total Protein 7.5 Albumin 4.0 ECG Data Attestation: I personally reviewed and interpreted this ECG (s) as follows: Interpretation: Underlying atrial fibrillation, ventricular rate of 65, nonspecific ST segment flattening present. No sniffing change versus May 21, 2019 [facility] General Mode of arrival: ambulatory . Date/Time Provider Initiated Documentation: 05/25/19 13:03 . Limitations to Documentation: no limitations . Information obtained by: patient and family . History of Present Illness 78 year old M presents to the emergency department with the chief complaint of Bradycardia and exertional shortness of breath, described as moderate, Quality is described as dull, and is localized to the chest. Patient reports no radiation. Patient started experiencing this week(s) and it has been intermittent. Rest improves symptom(s), Movement worsens symptoms . Patient notes weakness and other (Back tightness with shortness of breath when walking); denies syncope. Patient did receive the following treatments prior to arrival, none Related Data Home Medications Medication Instructions Recorded Confirmed coenzyme [id number] E [Co Q-10 1 tab PO DAILY 07/15/13 05/25/19 (with Vit E)] Lactobacillus acidophilus 1 ea PO DAILY #1 12/09/16 05/25/19 doxazosin 4 mg tablet 4 mg PO HS #90 tab-cap 06/01/18 05/25/19 paroxetine HCl 20 mg tablet 20 mg PO DAILY #90 tab-cap 10/11/18 05/25/19 apixaban 5 mg tablet 5 mg PO BID #180 tab 11/15/18 05/25/19 tiotropium bromide 18 mcg capsule 1 cap INHALATION DAILY #3 each 11/16/18 05/25/19 with inhalation device finasteride 5 mg tablet 5 mg PO HS #90 tab 11/26/18 05/25/19 pantoprazole 40 mg tablet,delayed 40 mg PO BID #180 tab-cap 12/03/18 05/25/19 release furosemide 40 mg tablet 20 mg PO DAILY tab-cap 01/05/19 05/25/19 metoprolol succinate 50 mg 25 mg PO DAILY #45 tab-cap 01/05/19 05/25/19 tablet,extended release 24 hr potassium chloride 20 mEq 20 meq PO DAILY tab-cap 01/05/19 05/25/19 tablet,extended release(part/cryst) hemp PO DAILY 01/24/19 04/27/19 sucralfate 1 gram tablet 1 gm PO TID #270 tab 04/28/19 05/25/19 Previous Rx's Medication Instructions Recorded doxazosin 4 mg tablet 4 mg PO HS #90 tab-cap 06/01/18 paroxetine HCl 20 mg tablet 20 mg PO DAILY #90 tab-cap 10/11/18 apixaban 5 mg tablet 5 mg PO BID #180 tab 11/15/18 tiotropium bromide 18 mcg capsule 1 cap INHALATION DAILY #3 each 11/16/18 with inhalation device finasteride 5 mg tablet 5 mg PO HS #90 tab 11/26/18 pantoprazole 40 mg tablet,delayed 40 mg PO BID #180 tab-cap 12/03/18 release sucralfate 1 gram tablet 1 gm PO TID #270 tab 04/28/19 Allergies Allergy/AdvReac Type Severity Reaction Status Date / Time pravastatin AdvReac Severe ABDOMINAL Verified 05/25/19 13:17 PAIN General Stated Complaint: SOB JOE: 2 Review of Systems Review of Systems Narrative: Seen in emergency department on May 20 with Lasix increased to 40 mg daily. Denies weight gain. Shortness of breath with exertion that provokes some mild back tightness. Improves with rest. 8 systems reviewed and otherwise negative. [facility] Medical History (Updated 05/26/19 @ 15:27 by Lety Harris MD) Anticoagulated (Acute) Anticoagulated on warfarin (Inactive) A-fib; INR goal 2-3 Anxiety Atrial fibrillation BPH (benign prostatic hyperplasia) CAD (coronary artery disease) Cardiomyopathy COPD (chronic obstructive pulmonary disease) Epigastric pain Essential hypertension Former smoker History of left heart catheterization (Inactive) History of tobacco use (Inactive) Internal hemorrhoids NE (myocardial infarction) Mitral regurgitation (Chronic) Mitral valve regurgitation Oral lesion MAGAN (obstructive sleep apnea) MAGAN treated with BiPAP Rectal bleeding Retinal detachment of left eye without retinal defect (Inactive 06/19/16) Right lumbar radiculopathy Tachy-danni syndrome Trigger finger, right middle finger Trigger finger, right middle finger (Inactive 02/17/17) Trigger middle finger of right hand (Resolved) SURGERY 04/16/18 Surgical History (Updated 05/25/19 @ 21:11 by Jewel Isaacs) Arthroscopy, Shoulder (~1966) right Cholecystectomy Fracture of radius, distal, with ulna, right, closed (Inactive) Percutaneous pinning DOS: 10/25/18 Dr. Sheridan History of colonoscopy (Chronic 04/13/18) Dr Lundberg History of esophagogastroduodenoscopy (EGD) (Chronic 04/13/18) Dr Lundberg History of hemorrhoidectomy (Chronic 05/11/18) EUA, banding, Dr Lundberg History of partial thyroidectomy (Inactive) left heart cadiac cath (~1982) Repair of inguinal hernia x 2 Status post arthroscopy of shoulder (Inactive) Status post inguinal hernia repair (Inactive) Thyroid right lobectomy 2005 Family History Mother No problems noted. Father No problems noted. Brother No problems noted. Social History Smoking/Tobacco Use Status: Former Tobacco Use Quit Date: 08/03/85 Alcohol Intake: current Alcohol Intake frequency: a few times a week Alcohol type: beer Drug use: Never Substance use type: does not use Aleyda/Restorationism: No preference Special aleyda needs: No Do you feel safe at home: Yes Do you feel safe in your relationship?: Yes Exam Narrative Exam Narrative: GEN: awake, alert, oriented 3. Pleasant, well groomed, interactive. HEAD: Normocephalic, atraumatic ENT: Mucous membranes moist, oropharynx unremarkable, External ear exam unremarkable EYES: PERRL, EOMI NECK: Full ROM, no CORBY, no menigismus CHEST/RESP: Nontender, basilar rales, few end expiratory scattered wheeze CARDIOVASCULAR: borderline bradycardia, irregularly irregular, no murmur, rub juan m. 2+ Rad pulse bilateral ABDOMEN: Soft, nontender, no mass. +Bowel sounds EXT: Full ROM, no edema, no rash Neuro: Grossly normal neurologic exam, conversant, interactive. Psych: Speech fluent, thoughts congruent, affect normal Course Vital Signs Vital signs: Vital Signs Temperature 36.5 C 05/25/19 13:13 Pulse 44 L 05/25/19 13:13 Respiratory Rate 15 05/25/19 13:13 Blood Pressure 122/98 H 05/25/19 13:13 Pulse Oximetry 95 05/25/19 13:13 Temperature 36.5 C 05/25/19 13:13 Temperature Source Skin 05/25/19 13:13 Pulse 44 L 05/25/19 13:13 Respiratory Rate 15 05/25/19 13:13 Respiratory Effort 05/25/19 13:19 Respiratory Depth Normal 05/25/19 13:19 Blood Pressure 122/98 H 05/25/19 13:13 Blood Pressure Position Sitting 05/25/19 13:13 Pulse Oximetry 95 05/25/19 13:13 Oxygen Delivery Method Room Air 05/25/19 13:13 Oxygen Flow Rate 0 05/25/19 13:13
[2019-05-25 13:56] LABS: Abs Immature Grans 0.06 k/cumm (0.0-0.09); Absolute Basophil Count 0.01 k/cumm (0.0-0.2); Absolute Eosinophil Count 0.01 k/cumm (0.0-0.7); Absolute Lymphocyte Count 0.86 k/cumm (1.2-3.4); Absolute Monocyte Count 0.49 k/cumm (0.11-0.7); Absolute Neutrophil Count 8.66 k/cumm (1.2-6.7); Basophils % 0.1; Eosinophils % 0.1; HCT 46.5 % (40.0-50.0); HGB 15.3 g/dL (13.5-17.5); Immature Grans % 0.6; Lymphocytes % 8.5; Mean Corp. HGB Concentration 32.9 g/dL (32.0-36.0); Mean Corpuscular Hemoglobin 28.9 pg (27.0-33.0); Mean Corpuscular Volume 87.9 fL (80-95); Mean Platelet Volume 10.7 fL (8.0-11.0); Monocytes % 4.9; Neutrophils % 85.8; Platelet Count 250 x1000/uL (130-400); RBC 5.29 m/cumm (4.50-6.00); RBC Distribution Width 14.4 % (11.8-14.1); White Blood Cell Count 10.09 k/cumm (4.4-10.8)
[2019-05-25 14:06] LABS: ALT 58 U/L (16-63); AST 26 U/L (15-37); Alkaline Phosphatase 75 U/L (46-116); Anion Gap 9.8 mmol/L (3-11); BUN 34 mg/dL (7-18); Bilirubin, Total 0.7 mg/dL (0.2-1.0); CO2 28.2 mmol/L (21.0-32.0); CREATININE 2.07 mg/dL (0.70-1.30); Calcium 8.4 mg/dL (8.5-10.1); Chloride 101 mmol/L (98-107); Estimated GFR 31.05 (mL/min/1.73m2); Glucose 159 mg/dL (70-100); Magnesium 2.3 mg/dL (1.8-2.4); NT-proBNP 4881 pg/mL; Potassium 4.3 mmol/L (3.5-5.1); Sodium 139 mmol/L (136-145); Total Protein 7.5 g/dL (6.4-8.2)
[2019-05-25 14:09] LABS: Troponin I < 0.05 ng/mL (0.00-0.06)
[2019-05-25 14:12] LABS: INR 1.1 (0.9-1.1); Prothrombin Time 11.2 sec (9.3-11.0)
--- NOTE | 2019-05-25 14:17 | DI.RAD_ITS ---
EXAM: XR CHEST 2V PA LATERAL INDICATION: SOB, Mitral regurgitation. COMPARISON: XR PORTABLE CHEST AP from 05/21/2019 TECHNIQUE: 2D digital imaging was performed. FINDINGS: Cardiomegaly is demonstrated. There are increased interstitial markings in the lungs. The hilar str uctures, mediastinum and tracheal air column appear intact. IMPRESSION: Increased interstitial markings are demonstrated in the lungs and could be on the basis of mild conge stive failure. No localized pulmonary infiltrate is seen.
[2019-05-25] MEDS: Furosemide 20 MG/2 ML VIAL IVP (14:48)
[2019-05-25 17:46] LABS: Troponin I < 0.05 ng/mL (0.00-0.06)
--- NOTE | 2019-05-25 18:58 | W.PM.HP.N ---
Date of service: 05/25/19 Time of Service: 18:58 Assessment and Plan Assessment and plan (1) Acute on chronic systolic CHF (congestive heart failure): Status: Acute Assessment and plan: He is in acute decompensated CHF probably multifactorial the primary underlying cause is his severe MR in setting of his low LVEF; however, given his echo earlier this year showing worsening LV function w/ regional wall motion abnormalities, he could have ischemic CM. His last stress MPI was a Lexiscan and was negative. He has long standing Htn and MAGAN along w/ his afib and his MR all of which are contributing factors to his CHF. While his rising BNP and worsening dyspnea are indicative of his decompensated CHF, his lack of pedal/pretibial edema suggest otherwise, he may have been partially treated by the increased oral lasix over past 3 days. He indicated that his bare naked weight of 112 lbs has been stable. Nevertheless he was seen in the ER on 05/21 and had documented pretibial edema correction up his lower legs. His rising BUN and creatinine suggest either the increased lasix is causing prerenal azotemia or he has low cardiac output leading to cardiorenal syndrome. He needs to be ruled out for ACS which so far his troponin levels are negative. 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 However his chest pressure may be an anginal equivalent or may just be due to his CHF. For now I will diurese him overnight w/ lasix drip and try low dose dobutamine to improve his LV function as well as improve upon his slow HR which are probably contributing to his acute CHF. I will also try low dose NTG iv for afterload reduction to improve forward flow as long as his systolic BP can tolerate this. (2) Cardiomyopathy: Status: None Assessment and plan: as above. Will repeat his echo in the a.m. and have Dr. Dave see him for continuity of care and to make and implement recommendations on control of his CHF and to facilitate referral to [facility]. I feel that he needs a cardiac cath and then a decision about treatment of his severe MR. Dr. Low was in process of referring him to [facility] for possible mitral valve clipping. Qualifiers: Cardiomyopathy type: dilated Qualified Code(s): I42.0 - Dilated cardiomyopathy (3) Atrial fibrillation: Status: None Assessment and plan: patient has been on low dose Toprol XL but has known tachy/danni syndrome and with his low HR in the 30's to 40's, he needs a higher HR to help keep him out of CHF. He may need a pacer as he probably needs to stay on a beta luciana for prevention of rapid afib as well as treatment of his CHF. I will hold his Toprol XL for now but continue anticoagulation w/ Apixaban. I will ask cardiology to consult on him. Qualifiers: Atrial fibrillation type: longstanding persistent Qualified Code(s): I48.11 - Longstanding persistent atrial fibrillation (4) Acute on chronic renal failure: Status: Acute Assessment and plan: worsening renal azotemia probably d/t low cardiac output state. Treat the acute CHF and monitor his renal function optimizing his volemic status and also treat CHF w/ afterload reduction and inotropes. Qualifiers: Acute renal failure type: unspecified Chronic kidney disease stage: unspecified stage Qualified Code(s): N17.9 - Acute kidney failure, unspecified; N18.9 - Chronic kidney disease, unspecified History of Present Illness History of Present Illness Chief Complaint: dyspnea, chest pressure Narrative: 78-year-old male with a history of severe mitral regurgitation, essential hypertension, coronary artery disease, chronic atrial fibrillation, BPH, COPD, cardiomyopathy (?ischemic vs non-ischemic), chronic back pain due to lumbosacral spondylosis, GERD, peptic ulcer disease, obstructive sleep apnea and tachy/bradycardia syndrome who presents the emergency department with progressive exertional dyspnea and exertional chest pressure. Patient says over the last month he is gone from being able to walk 50 to 60 feet carrying a 24 pack of water and does home to the point that he cannot walk across the parking lot without getting dyspneic. He says about 6 months ago he could walk about 100 yards to his mailbox with one stop. He was seen in the ER on 05/21 for similar c/o of dyspnea but w/out chest tightness. Workup then suggested CHF exacerbation w/ elevated BNP of 3400 and exam w/ bibasilar rales and pitting pretibial edema to mid tibia. He was treated w/ nebulizers and iv lasix and admission was recommended but he declined and wanted to go home. He was told to increase his lasix from 20 mg daily to 40 mg daily and to follow up w/ Dr. Ronald Irby his PCP. His store sales leader Dr. Low had referred him to [facility] for evaluation of his severe mitral regurgitation and possible surgical repair but the patient is awaiting an appointment from [facility]. Per Dr. Low's notes, the patient's latest echo from December 2018 now shows new LV dysfunction w/ LVEF 40 to 50% and increased end systolic diameter of 48 mm and severe mitral regurgitation but w/ normal RV size and function. These are new since prior study from 2015. The patient has not had any recent stress MPI to evaluate for ischemia (although there is a scanned Lexiscan stress MPI from 05/21/2016 that reportedly was neg. for ischemia). The patient states that his former PCP, Dr. Almodovar had told him years ago that his EKG showed he had an old MD and the patient says that he had a cardiac cath in the mid 1979's for evaluation of chest pains but was never told he had any coronary obstructions. Per Dr. 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 Upon arrival to the ER he was noted to have bibasilar rales, stable BP of 122/98 and slow afib HR in the 40's. Diagnostic studies included troponin I x 2 that were both less than 0.05 and an elevated BNP of 4881 and renal insufficiency with BUN 34 and creatinine of 2.0 and CXR that demonstrated cardiomegaly and increased interstitial markings of the lungs c/w CHF. Treatment in the ER included lasix 20 mg IVP w/ U.O. of 525 mL. He remains dyspneic w/ any effort and his oxygen saturation has been borderline at 90%. He has been bradycardic into the high 30's to low 40's in afib. He says that he took his Toprol XL today (25 mg which he says was cut down by Dr. Low from 50 mg daily) Review of Systems Constitutional Constitutional: Reports fatigue, Reports poor appetite, Reports snoring and Reports stops breathing during sleep Eyes Eyes: Reports requires corrective lenses ENT Ears, Nose, Mouth, and Throat: Reports system reviewed and no additional complaints, except as docu Cardiovascular Cardiovascular: Reports as per HPI, Reports chest pain with activity, Reports irregular heart rhythm, Denies leg edema, Reports dyspnea, Reports dyspnea on exertion, Reports paroxysmal nocturnal dyspnea and Reports slow heart rate Respiratory Respiratory: Reports as per HPI, Reports dyspnea, Reports dyspnea on exertion and Reports snoring Gastrointestinal Gastrointestinal: Reports dyspepsia, Reports nausea and Denies vomiting Genitourinary Genitourinary: Reports system reviewed and no additional complaints, except as docu Musculoskeletal Musculoskeletal: Reports system reviewed and no additional complaints, except as docu, Reports numbness and Reports tingling (in feet and right lower leg) Integumentary/Breasts Skin/Breast: Reports system reviewed and no additional complaints, except as docu Neurologic Neurologic: Reports numbness and Reports tingling (in feet and right lower leg) Psychiatric Psychiatric: Reports system reviewed and no additional complaints, except as docu Endocrine Endocrine: Reports fatigue Hematologic/Lymphatic Hematologic/Lymphatic: Reports system reviewed and no additional complaints, except as docu Allergic/Immunologic Allergic/Immunologic: Reports system reviewed and no additional complaints, except as docu [facility] Medical History (Updated 05/25/19 @ 21:22 by Jewel Isaacs) Anticoagulated (Acute) Anticoagulated on warfarin (Inactive) A-fib; INR goal 2-3 Anxiety Atrial fibrillation BPH (benign prostatic hyperplasia) CAD (coronary artery disease) Cardiomyopathy COPD (chronic obstructive pulmonary disease) Epigastric pain Essential hypertension Former smoker History of left heart catheterization (Inactive) History of tobacco use (Inactive) Internal hemorrhoids MD (myocardial infarction) Mitral regurgitation (Chronic) Mitral valve regurgitation Oral lesion MAGAN (obstructive sleep apnea) MAGAN treated with BiPAP Rectal bleeding Retinal detachment of left eye without retinal defect (Inactive 06/19/16) Right lumbar radiculopathy Tachy-danni syndrome Trigger finger, right middle finger Trigger finger, right middle finger (Inactive 02/17/17) Trigger middle finger of right hand (Resolved) SURGERY 04/16/18 Surgical History (Updated 05/25/19 @ 21:11 by Jewel Isaacs) Arthroscopy, Shoulder (~1967) right Cholecystectomy Fracture of radius, distal, with ulna, right, closed (Inactive) Percutaneous pinning DOS: 10/25/18 Dr. Sheridan History of colonoscopy (Chronic 04/13/18) Dr Lundberg History of esophagogastroduodenoscopy (EGD) (Chronic 04/13/18) Dr Lundberg History of hemorrhoidectomy (Chronic 05/11/18) EUA, banding, Dr Lundberg History of partial thyroidectomy (Inactive) left heart cadiac cath (~1982) Repair of inguinal hernia x 2 Status post arthroscopy of shoulder (Inactive) Status post inguinal hernia repair (Inactive) Thyroid right lobectomy 2005 Family History Mother No problems noted. Father No problems noted. Brother No problems noted. Social History Smoking/Tobacco Use Status: Former Tobacco Use Quit Date: 08/03/85 Alcohol Intake: current Alcohol Intake frequency: a few times a week Alcohol type: beer Drug use: Never Substance use type: does not use Aleyda/Confucianist: No preference Special aleyda needs: No Do you feel safe at home: Yes Do you feel safe in your relationship?: Yes Meds Home Medications and Allergies Home Medications Medication Instructions Recorded Confirmed Type coenzyme [id number] [Co Q-10 1 tab PO DAILY 07/15/13 05/25/19 History (with Vit E)] Lactobacillus acidophilus 1 ea PO DAILY #1 12/09/16 05/25/19 History doxazosin 4 mg tablet 4 mg PO HS #90 tab-cap 06/01/18 05/25/19 Rx paroxetine HCl 20 mg tablet 20 mg PO DAILY #90 tab-cap 10/11/18 05/25/19 Rx apixaban 5 mg tablet 5 mg PO BID #180 tab 11/15/18 05/25/19 Rx tiotropium bromide 18 mcg capsule 1 cap INHALATION DAILY #3 each 11/16/18 05/25/19 Rx with inhalation device finasteride 5 mg tablet 5 mg PO HS #90 tab 11/26/18 05/25/19 Rx pantoprazole 40 mg tablet,delayed 40 mg PO BID #180 tab-cap 12/03/18 05/25/19 Rx release furosemide 40 mg tablet 20 mg PO DAILY tab-cap 01/05/19 05/25/19 History metoprolol succinate 50 mg 25 mg PO DAILY #45 tab-cap 01/05/19 05/25/19 History tablet,extended release 24 hr potassium chloride 20 mEq 20 meq PO DAILY tab-cap 01/05/19 05/25/19 History tablet,extended release(part/cryst) hemp PO DAILY 01/24/19 04/27/19 History sucralfate 1 gram tablet 1 gm PO TID #270 tab 04/28/19 05/25/19 Rx Allergies Allergy/AdvReac Type Severity Reaction Status Date / Time pravastatin AdvReac Severe ABDOMINAL Verified 05/25/19 13:17 PAIN Exam Const General: cooperative, not in distress and ill appearing acutely Nutritional Appearance: obese Orientation: alert, awake and oriented x3 HENMT Head: normal to inspection, no palpable skull fracture, normocephalic and atraumatic Ears: hearing grossly impaired Eyes General: appearance normal, both eyes and all related structures Alignment and Position: alignment normal Periorbital: periorbital findings normal Eyelids: eyelids normal Conjunctivae: conjunctivae normal Sclera: sclerae normal Cornea: corneas normal EOM: EOM intact bilaterally Neck Neck: normal visual inspection, full ROM, no lymphadenopathy, trachea midline and JVD (to angle of his jaw) Carotids: normal carotid upstroke Lymphatic: no lymphadenopathy noted Chest Chest: normal inspection of the chest and normal palpation of entire chest wall Resp Effort & Inspection: able to speak in complete sentences and tachypneic Auscultation: crackles bilaterally at the base and 1/[address] up and wheezes expiratory wheezes and scattered wheezes Percussion: percussion normal Cardio Jugular venous pressure: JVD Palpation: abnormal PMI displaced PMI and thrill Rate: bradycardic Rhythm: abnormal rhythm irregularly irregular Heart Sounds: murmur systolic holo, harsh, IV/ and at the apex Bruits: no abdominal aortic bruits and no carotid bruits Pulses: posterior tibial pulses present bilaterally diminished and dorsalis pedis pulses present bilaterally diminished GI Inspection: obesity and visible herniation Palpation: soft and no hepatosplenomegaly Percussion: normal to percussion Auscultation: normal bowel sounds Back/Spine/Pelvis Back: no CVA tenderness Cervical Spine: normal cervical lordosis Thoracic/Lumbar Spine: thoracic and lumbar spine normal to inspection Skin General skin exam: no rashes or lesions noted Neuro General: alert, awake, oriented x3, moves all extremities and no focal motor deficits Cognition: normal cognition Speech: speech normal Motor: muscle tone normal throughout, strength 5/5 throughout and no movement abnormalities noted Sensory Exam: no sensory deficits noted Extrem General: normal to inspection, full ROM, no clubbing, cyanosis or edema, no pedal edema and no calf tenderness Psych Appearance: grossly normal Mental Status: mental status grossly normal Speech and Movement: speech and movement normal Mood: congruent mood Attitude: cooperative Thought Process: normal Thought Content: normal Insight: insight good Judgment: judgment good Results Imaging Chest x-ray: image reviewed EKG: image reviewed Labs Result diagrams: 05/25/19 13:35 05/25/19 13:35 Labs: Laboratory Results - last 24 hr 05/25/19 05/25/19 05/25/19 13:35 13:35 13:35 WBC 10.09 RBC 5.29 Hgb 15.3 Hct 46.5 MCV 87.9 MCH 28.9 MCHC 32.9 RDW 14.4 H Plt Count 250 MPV 10.7 Immature Gran % 0.6 Neutrophils % 85.8 Lymphocytes % 8.5 Monocytes % 4.9 Eosinophils % 0.1 Basophils % 0.1 Absolute Neutrophils 8.66 H Absolute Lymphocytes 0.86 L Absolute Monocytes 0.49 Absolute Eosinophils 0.01 Absolute Basophils 0.01 PT 11.2 H INR 1.1 APTT 25.0 Sodium 139 Potassium 4.3 Chloride 101 Carbon Dioxide 28.2 Anion Gap 9.8 BUN 34 H Creatinine 2.07 H Estimated GFR/1.73 m2 31.05 Glucose 159 H Calcium 8.4 L Magnesium 2.3 Total Bilirubin 0.7 AST 26 ALT 58 Alkaline Phosphatase 75 Troponin I < 0.05 NT-Pro-B Natriuret Pep 4881 H Total Protein 7.5 Albumin 4.0 05/25/19 17:10 WBC RBC Hgb Hct MCV MCH MCHC RDW Plt Count MPV Immature Gran % Neutrophils % Lymphocytes % Monocytes % Eosinophils % Basophils % Absolute Neutrophils Absolute Lymphocytes Absolute Monocytes Absolute Eosinophils Absolute Basophils PT INR APTT Sodium Potassium Chloride Carbon Dioxide Anion Gap BUN Creatinine Estimated GFR/1.73 m2 Glucose Calcium Magnesium Total Bilirubin AST ALT Alkaline Phosphatase Troponin I < 0.05 NT-Pro-B Natriuret Pep Total Protein Albumin Last Vital Signs Temp 36.6 C 05/25/19 18:56 Pulse 60 05/25/19 18:56 Resp 16 05/25/19 18:56 BP 130/74 05/25/19 18:56 Pulse Ox 97 05/25/19 18:56
[2019-05-25 21:37] LABS: Troponin I < 0.05 ng/mL (0.00-0.06)
[2019-05-25] MEDS: Sucralfate 1 GM TAB PO (22:39)
[2019-05-25] MEDS: Pantoprazole 40 MG TABCR PO (22:40)
[2019-05-25] MEDS: Finasteride 5 MG TAB PO (22:40)
[2019-05-25] MEDS: Apixaban 5 MG TAB PO (22:40)
[2019-05-26] VITALS (93 sets, daily range): BP systolic 89–157; BP diastolic 42–119; PULSE 36–67; RESP 13–28; TEMP 36.5–36.8; O2SAT 89–98
[2019-05-26] MEDS: Acetaminophen 325 MG TAB PO (03:53)
[2019-05-26 07:28] LABS: Anion Gap 9.5 mmol/L (3-11); BUN 39 mg/dL (7-18); CO2 28.5 mmol/L (21.0-32.0); CREATININE 1.92 mg/dL (0.70-1.30); Calcium 8.2 mg/dL (8.5-10.1); Chloride 101 mmol/L (98-107); Estimated GFR 33.87 (mL/min/1.73m2); Glucose 124 mg/dL (70-100); Magnesium 2.3 mg/dL (1.8-2.4); NT-proBNP 7299 pg/mL; Potassium 3.8 mmol/L (3.5-5.1); Sodium 139 mmol/L (136-145); TSH (W/Ref FT4) 8.42 uIU/mL (0.36-3.74)
--- NOTE | 2019-05-26 07:30 | DI.US_ITS ---
APPROVED REPORT Conclusion Left Ventricle : Left ventricle is dilated (LVDd 6cm, LVDs 4.6cm). Left ventricular systolic function is moderately decreased. There is normal left ventricular wall thickness. Regional wall motion is gr ossly normal. LVEF is 40-45%. Right Ventricle : Right ventricle is dilated. Right ventricle is mildly hypokinetic. Atria : Left atrium is severely dilated. Right atrium is severely dilated. Aortic Valve : The aortic valve is normal in structure. There is no aortic valvular stenosis. Mild ao rtic regurgitation. Mitral Valve : Mitral valve leaflets are thickened. There is no evidence of prolapse. Mitral regurgit ation is severe with posteriorly directed jet. Tricuspid Valve : The tricuspid valve is normal in structure. Moderate tricuspid regurgitation. TR V-max 4.23 m/s.TR peak gradient 71.5mmHG. RVSP estimated to be 80-85 mmHg Pulmonic Valve : Pulmonic valve is not well visualized. Great Vessels : Ascending aorta is mildly enlarged (4 cm). The IVC is mildly enlarged with less than 50% collapse suggesting elevated right atrial pressures. Compared to echocardiogram dated 12/10/2018 estimated RVSP is now severely elevated. There have been no interval changes in valvular or ventricular function EXAM: Comprehensive 2D, Doppler, and color-flow Echocardiogram Indications: CHF valvular heart disease Left Ventricle Left ventricle is dilated. Left ventricular systolic function is moderately decreased. There is mihaela l left ventricular wall thickness. Regional wall motion is grossly normal. Diastolic function is inde terminate but there is evidence of increased LV filling pressures. LVEF is 40-45%. Right Ventricle Right ventricle is dilated. Right ventricle is mildly hypokinetic. Atria Left atrium is severely dilated. Right atrium is severely dilated. Aortic Valve The aortic valve is normal in structure. There is no aortic valvular stenosis. Mild aortic regurgitat ion. Mitral Valve Mitral valve leaflets are thickened. There is no evidence of prolapse. No evidence of mitral valve st enosis. Severe mitral regurgitation. Mitral regurgitation jet is posteriorly directed (RF =83%). Tricuspid Valve The tricuspid valve is normal in structure. Moderate tricuspid regurgitation. TR V-max 4.23 m/s.TR p eak gradient 71.5 mm marked RVSP estimated to be 80 to 85 mmHg Pulmonic Valve Pulmonic valve is not well visualized. Great Vessels Ascending aorta is mildly enlarged (4 cm) The IVC is mildly enlarged with less than 50% collapse sugg esting elevated right atrial pressures. Pericardium There is no pericardial effusion. 2D Dimensions IVSd 1.00 cm M: 0.6-1.2 LV EDV A2C 113.40 mL PWd 1.16 cm M: 0.6 - 1.2 LV EDV A4C 134.00 mL LVDd 6.06 cm M: 4.2 - 5.9 LA Volume A2C 118.20 mL LVDs 4.57 cm M: 2.5 - 4.0 LA Volume Index A2C 58.48 mL/m2 Aortic Root 3.75 cm M: 3.1 - 3.7 LA Volume A4C 154.80 mL RA Area A4C 37.58 cm2 LA Volume Index A4C 76.09 mL/m2 LVOT 2.10 cm (M/F) 1.5-2.5 LA Volume Index Biplane 67.06 mL/m2 Ascending Aorta 4.02 cm M: 2.6 - 3.4 LA Area A4C 38.77 cm2 LVEF (Teich) 47.90 % LA Area A2C 33.81 cm2 LVEF (Fountain's) 47.63 % M: 52 - 72 EF AP4 49.93 % LV Volume 96.67 mL M: 62 - 150 EF AP2 46.83 % LV Volume Index 45.59 mL/m2 M: 34 - 74 EF BP 47.63 % FS 24.56 % SV 62.60 mL LV Diastology MED E' 0.06 (>0.07 m/s) LV E/e MED 18.47 (<14) LAT E' 0.11 (>0.1 m/s) LV E/e LAT 9.43 (<14) Pulm Vein s 0.78 m/s PV S/D Ratio 1.93 Pulm Vein d 0.40 m/s Aortic Valve LVOT Area 3.45 cm2 LVOT Peak Eder. 0.80 m/s LVOT Mean Eder. 0.53 m/s ADELA Vmax 0.00 m/s LVOT Peak Gr. 2.54 mmHg ADELA Vmax Index 1.22 cm2/m2 LVOT Mean Gr. 1.34 mmHg ADELA Mean Eder. 0.00 m/s LVOT VTI 0.11 m ADELA Mean Eder. Index 1.15 cm2/m2 AoV Peak Eder. 1.06 (0.5-1.3 m/s) AoV Mean Eder. 0.76 m/s AO Peak GR. 4.49 mmHg AO Mean GR. 2.53 (<5 mmHg) AO VTI 0.19 (0.18-0.25 m) ADELA (VTI) 2.03 (2.5-4.5 cm2) ADELA (VTI) Index 0.96 cm/m2 Mitral Valve MV E Max Eder. 1.08 (0.4-1.3 m/s) MV Decel. Time 231.48 (160-240 msec) MV Mean Gr. 0.50 (<2mmHg) MV Regurg Volume 201.36 mL MV PHT 67.13 msec MV RF 83.60 % MVA PHT 3.28 cm2 Tricuspid Valve TR P. Velocity 4.23 m/s TV Regurg Vmax 4.23 m/s TR P. Gradient 71.53 mmHg
[2019-05-26 07:52] LABS: FREE T4 0.98 ng/dL (0.76-1.46); Troponin I 0.05 ng/mL (0.00-0.06)
--- NOTE | 2019-05-26 08:13 | W.PM.PROGNOT ---
Date of Service Date of service: 05/26/19 Time of Service: 15:11 Assessment and Plan Assessment and plan (1) Acute on chronic systolic CHF (congestive heart failure): Status: Acute Assessment and plan: EF was measured while on a small dose of dobutamine in today's echo. LONA will be done prior to mitral clipping at [facility] next week. I am awaiting TTE read. Dobutamine and nitroglycerine drips d/c'ed, per cardiology recommendations. For now, diurese with lasix gtt. (2) Mitral regurgitation: Status: Chronic Assessment and plan: Will need clipping - appointment at [facility] expidited. Appreciate cardiology help. Qualifiers: Cardiac valve disease etiology: etiology unspecified Qualified Code(s): I34.0 - Nonrheumatic mitral (valve) insufficiency (3) Atrial fibrillation: Status: None Assessment and plan: Monitor on tele. May require a pacer given SSS. Qualifiers: Atrial fibrillation type: longstanding persistent Qualified Code(s): I48.11 - Longstanding persistent atrial fibrillation (4) Acute on chronic renal failure: Status: Acute Assessment and plan: Monitor Cr while diuresing with lasix drip. Qualifiers: Acute renal failure type: unspecified Chronic kidney disease stage: unspecified stage Qualified Code(s): N17.9 - Acute kidney failure, unspecified; N18.9 - Chronic kidney disease, unspecified (5) Cardiomyopathy: Status: None Assessment and plan: Likely related to mitral regurg, but will need ischemic workup as well - will need a cardiac cath as outpatient. NO ACS. Qualifiers: Cardiomyopathy type: dilated Qualified Code(s): I42.0 - Dilated cardiomyopathy (6) Urinary retention: Status: Resolved Assessment and plan: S/p ybarra while on lasix gtt. (7) MAGAN treated with BiPAP: Status: None Assessment and plan: BiPAP tonight. (8) DVT prophylaxis: Status: Acute Assessment and plan: Continue apixaban (9) Discharge planning issues: Status: Acute Assessment and plan: Keep in the ICU. Full code Plan to discharge home in 48 hours with outpatient follow up with [facility] cardiology for mitral valve clipping. Subjective Subjective Interval history since last seen: Feels a little better, but still short of breath when laying at about 20-30 degree angle in bed. Afib with frequent ventricular ectopy, including 11 beats of Vtach, asymptomatic. Otherwise, bradycardic - high 30's until 50's. Pauses up to 2.83 sec. SBP 90's to 130's. Off dobutamine and nitro drip. Remains on lasix drip, diuresing well. Required O2 at night - not on BiPAP overnight. Off O2 now. Reports episodic numbness in the whole body. Exam Narrative Exam Narrative: General: very pleasant elderly male, A&Ox3, laying comfortably at a 30 degree angle HEENT: EOMI, MMM Heart: RRR with extra beats, no m/r/g Lungs: CTAB GI: abdomen is soft, nontender, nondistended Extremities: trace edema BLE's Objective Objective Clinical Data: Abnormal lab results 05/25/19 05/25/19 05/25/19 Range/Units 13:35 13:35 13:35 RDW 14.4 H (11.8-14.1) % Absolute Neutrophils 8.66 H (1.2-6.7) k/cumm Absolute Lymphocytes 0.86 L (1.2-3.4) k/cumm PT 11.2 H (9.3-11.0) sec BUN 34 H (7-18) mg/dL Creatinine 2.07 H (0.70-1.30) mg/dL Glucose 159 H (70-100) mg/dL Calcium 8.4 L (8.5-10.1) mg/dL NT-Pro-B Natriuret Pep 4881 H ( - 299) pg/mL TSH (0.36-3.74) uIU/mL 05/26/19 Range/Units 06:45 RDW (11.8-14.1) % Absolute Neutrophils (1.2-6.7) k/cumm Absolute Lymphocytes (1.2-3.4) k/cumm PT (9.3-11.0) sec BUN 39 H (7-18) mg/dL Creatinine 1.92 H (0.70-1.30) mg/dL Glucose 124 H (70-100) mg/dL Calcium 8.2 L (8.5-10.1) mg/dL NT-Pro-B Natriuret Pep 7299 H ( - 299) pg/mL TSH 8.42 H (0.36-3.74) uIU/mL Vital Signs Temperature 36.8 C 05/26/19 03:20 Temperature Source Temporal Artery Scan 05/26/19 03:20 Pulse 56 L 05/26/19 00:56 Pulse 51 L 05/26/19 00:56 Respiratory Rate 18 05/26/19 03:20 Respiratory Effort 05/26/19 03:20 Respiratory Depth Normal 05/26/19 03:20 Respiratory Pattern Normal 05/26/19 03:20 Blood Pressure 135/73 05/26/19 00:56 Blood Pressure Mean 89 05/26/19 00:56 Blood Pressure Position Sitting 05/25/19 13:13 Pulse Oximetry 95 05/26/19 03:20 Oxygen Delivery Method Nasal Cannula 05/25/19 21:41 Oxygen Flow Rate 2 05/25/19 21:41 Pain Level 0 05/26/19 03:20 Intake & Output 05/25/19 05/25/19 05/26/19 11:59 23:59 11:59 Intake Total 92.167 / 92.167 Output Total 1425 / 1425 1775 / 1775 Balance -1405 / -1405 -1682.833 / -1682.833 Weight 96.8 kg Intake: IV 92.167 / 92.167 Output: Urine 1425 / 1425 1775 / 1775 Other: Urine Color Light Sofia Pale Yellow Urine Appearance Clear Clear Urine Odor None None Comment ybarra inserted @02:30 Voiding Methods Urinal Indwelling Catheter Laboratory Results WBC 10.09 k/cumm (4.4-10.8) 05/25/19 13:35 RBC 5.29 m/cumm (4.50-6.00) 05/25/19 13:35 Hgb 15.3 g/dL (13.5-17.5) 05/25/19 13:35 Hct 46.5 % (40.0-50.0) 05/25/19 13:35 MCV 87.9 fL (80-95) 05/25/19 13:35 MCH 28.9 pg (27.0-33.0) 05/25/19 13:35 MCHC 32.9 g/dL (32.0-36.0) 05/25/19 13:35 RDW 14.4 % (11.8-14.1) H 05/25/19 13:35 Plt Count 250 x1000/uL (130-400) 05/25/19 13:35 MPV 10.7 fL (8.0-11.0) 05/25/19 13:35 Immature Gran % 0.6 05/25/19 13:35 Neutrophils % 85.8 05/25/19 13:35 Lymphocytes % 8.5 05/25/19 13:35 Monocytes % 4.9 05/25/19 13:35 Eosinophils % 0.1 05/25/19 13:35 Basophils % 0.1 05/25/19 13:35 Absolute Neutrophils 8.66 k/cumm (1.2-6.7) H 05/25/19 13:35 Absolute Lymphocytes 0.86 k/cumm (1.2-3.4) L 05/25/19 13:35 Absolute Monocytes 0.49 k/cumm (0.11-0.7) 05/25/19 13:35 Absolute Eosinophils 0.01 k/cumm (0.0-0.7) 05/25/19 13:35 Absolute Basophils 0.01 k/cumm (0.0-0.2) 05/25/19 13:35 PT 11.2 sec (9.3-11.0) H 05/25/19 13:35 INR 1.1 (0.9-1.1) 05/25/19 13:35 APTT 25.0 sec (21.0-31.4) 05/25/19 13:35 Sodium 139 mmol/L (136-145) 05/26/19 06:45 Potassium 3.8 mmol/L (3.5-5.1) 05/26/19 06:45 Chloride 101 mmol/L (98-107) 05/26/19 06:45 Carbon Dioxide 28.5 mmol/L (21.0-32.0) 05/26/19 06:45 Anion Gap 9.5 mmol/L (3-11) 05/26/19 06:45 BUN 39 mg/dL (7-18) H 05/26/19 06:45 Creatinine 1.92 mg/dL (0.70-1.30) H 05/26/19 06:45 Estimated GFR/1.73 m2 33.87 (mL/min/1.73m2) 05/26/19 06:45 Glucose 124 mg/dL (70-100) H 05/26/19 06:45 Calcium 8.2 mg/dL (8.5-10.1) L 05/26/19 06:45 Magnesium 2.3 mg/dL (1.8-2.4) 05/26/19 06:45 Total Bilirubin 0.7 mg/dL (0.2-1.0) 05/25/19 13:35 AST 26 U/L (15-37) 05/25/19 13:35 ALT 58 U/L (16-63) 05/25/19 13:35 Alkaline Phosphatase 75 U/L (46-116) 05/25/19 13:35 Troponin I 0.05 ng/mL (0.00-0.06) 05/26/19 06:45 NT-Pro-B Natriuret Pep 7299 pg/mL (-299) H 05/26/19 06:45 Total Protein 7.5 g/dL (6.4-8.2) 05/25/19 13:35 Albumin 4.0 g/dL (3.4-5.0) 05/25/19 13:35 TSH 8.42 uIU/mL (0.36-3.74) H 05/26/19 06:45 Free T4 0.98 ng/dL (0.76-1.46) 05/26/19 06:45
--- NOTE | 2019-05-26 08:18 | PDOC.CMIN ---
- If Service Date Differs Date of service: 05/26/19 Time of Service: 08:18 Care Management Initial Assess REASON FOR HOSPITALIZATION:: Acute on chronic systolic CHF PAST MEDICAL HISTORY/PAST SURGICAL HISTORY:: PFSH. Medical History (Updated 05/25/19 @ 21:22 by Jewel Isaacs). Anticoagulated (Acute). Anticoagulated on warfarin (Inactive). A-fib; INR goal 2-3. Anxiety. Atrial fibrillation. BPH (benign prostatic hyperplasia). CAD (coronary artery disease). Cardiomyopathy. COPD (chronic obstructive pulmonary disease). Epigastric pain. Essential hypertension. Former smoker. History of left heart catheterization (Inactive). History of tobacco use (Inactive). Internal hemorrhoids. PR (myocardial infarction). Mitral regurgitation (Chronic). Mitral valve regurgitation. Oral lesion. MAGAN (obstructive sleep apnea). MAGAN treated with BiPAP. Rectal bleeding. 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 Right lumbar radiculopathy. Tachy-danni syndrome. Trigger finger, right middle finger. Trigger finger, right middle finger (Inactive 02/17/17). Trigger middle finger of right hand (Resolved). SURGERY 04/16/18. Surgical History (Updated 05/25/19 @ 21:11 by Jewel Isaacs). Arthroscopy, Shoulder (~1966). right. Cholecystectomy. Fracture of radius, distal, with ulna, right, closed (Inactive). Percutaneous pinning. DOS: 10/25/18. Dr. Sheridan. History of colonoscopy (Chronic 04/13/18). Dr Lundberg. History of esophagogastroduodenoscopy (EGD) (Chronic 04/13/18). Dr Lundberg. History of hemorrhoidectomy (Chronic 05/11/18). EUA, banding, Dr Lundberg. History of partial thyroidectomy (Inactive). left heart cadiac cath (~1982). Repair of inguinal hernia. x 2. Status post arthroscopy of shoulder (Inactive). Status post inguinal hernia repair (Inactive). Thyroid. right lobectomy 2005 PREVIOUS FUNCTIONAL STATUS/SOCIAL/FAMILY SUPPORTS:: Jovanni lives in [place] in a single family home with his and [id number] in a single family home. They enjoy one level living. Jovanni and his Yue have no children. 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 CURRENT FUNCTIONAL STATUS:: Jovanni was sitting up in bed when CM met with him. He was very pleasant and readily engaged in conversation. He shared stories about his past, talking about his various positions and skills. He shared that he is scheduled to go [place] [facility] [place] but that this may need to happen on an outpatient basis. ADVANCE DIRECTIVES:: living will on file at [facility] Has patient been provided with information about the portal?: No Did the patient sign up for the portal?: No CODE STATUS:: Full Code INSURANCE COVERAGE / FINANCIAL ISSUES:: Medicare. for Life CURRENT HOME/COMMUNITY SERVICES/EQUIPMENT:: none PRIMARY CARE PHYSICIAN:: Ronald Irby POTENTIAL DISCHARGE NEEDS:: follow up with PCP and discharge plan of care PATIENT/FAMILY EDUCATION NEEDS:: Discharge plan, limitations, follow up plan, Ask Me Three TRANSPORTATION:: via private vehicle with family PLAN:: Jovanni will likely be discharged home with no new services. He will follow up with cardiology at [facility] as well as hisa PCP. CM will continue to support patient, family and discharge planning needs.
--- NOTE | 2019-05-26 08:30 | W.CARDCONSUL ---
Assessment and Plan Assessment and plan (1) Atrial fibrillation: Status: None Qualifiers: Atrial fibrillation type: longstanding persistent Qualified Code(s): I48.11 - Longstanding persistent atrial fibrillation (2) Acute on chronic renal failure: Status: Acute Qualifiers: Acute renal failure type: unspecified Chronic kidney disease stage: unspecified stage Qualified Code(s): N17.9 - Acute kidney failure, unspecified; N18.9 - Chronic kidney disease, unspecified (3) Acute on chronic systolic CHF (congestive heart failure): Status: Acute (4) Mitral regurgitation: Status: Chronic Assessment and plan: 1. Severe mitral regurgitation. This patient has known severe mitral regurgitation with a dilated LV (systolic diameter 4.8 cm). He also has a ejection fraction below 60% which would qualify him for mitral valve intervention. He is currently awaiting an appointment with the [facility] valve team which I will try to expedite. As far as acute therapy, the patient was relatively stable at home and I think if we can get a bunch of fluid off of him he will likely be L to return home prior to valve intervention. ?Patient probably does not need dobutamine at this point as it increases his risk for ectopy. Would favor stopping this ?IV nitroglycerin for afterload reduction. There is some evidence that this may help in any acute setting but I do not think patient is to overly decompensated at this point as he is warm and well-perfused. Again I favor stopping this medication. ?Continue aggressive IV diuresis with an afternoon potassium and creatinine level. ?Echo during this admission preferably after patient was diuresed. ?I will attempt to facilitate patient's evaluation by the [facility] valvular heart team. 2. Cardiomyopathy of unknown etiology. Patient now with acute on chronic HFrEF exacerbation. I suspect that this cardiomyopathy is due to severe mitral regurgitation rather than ischemia but patient will need another ischemic evaluation prior to valve intervention (last in 2016). ?DC dobutamine and nitroglycerin as above ?Diuresis as above ?Agree with holding beta-luciana at this time but will need to make sure he does not go home without it ?Unclear why patient was not on an EMILY inhibitor but would like to restart that prior to discharge as well. 3. Atrial fibrillation. Chronic with tachybradycardia syndrome It is unclear whether or not this preceded his mitral disease or vice versa. Findings from the Best trial suggest that patients with valvular disease and atrial fibrillation might still benefit from Eliquis as opposed to warfarin. ?Continue Eliquis but patient should have dose adjustment while creatinine is greater than 1.5 (patient is over 80 years old) ?Would like to restart beta-luciana once patient is no longer decompensated. Thank you for this interesting consult please contact cardiology with any additional questions Qualifiers: Cardiac valve disease etiology: etiology unspecified Qualified Code(s): I34.0 - Nonrheumatic mitral (valve) insufficiency History of Present Illness History of Present Illness Chief Complaint: Shortness of breath Narrative: Mr Figueroa is an 78-year-old male with past medical history significant for chronic atrial fibrillation, severe mitral regurgitation with left ventricular cardiomyopathy who presented last night to the ED with shortness of breath and weight gain. The patient has been followed in cardiology clinic for severe mitral regurgitation and atrial fibrillation. There is been discussion with trying to get him down to the valve team at [facility] for review of his chart and potential valve repair versus replacement. His last echocardiogram in December of this year showed an ejection fraction of 40 to 45% as well as severe mitral regurgitation and an LV systolic diameter of 4.8 cm. He has no known ischemic disease though last ischemic evaluation was a myocardial perfusion study in 2016 which showed no findings of ischemia. He states that he was in his normal state of health living independently and doing physical director when he started to develop a little more weakness and shortness of breath. The patient had only mild weight gain but this is typical for him when he starts to hold onto fluid his symptoms are mostly weakness. He spoke with his primary care doctor who increased his Lasix dose. After 3 days he still was not feeling improved and came to the emergency room. There he was found to be about 7 pounds up. EKG at that time showed no ischemic changes but atrial fibrillation with a slow ventricular response and frequent PVCs. He is known to have tachybradycardia syndrome. The patient was admitted and placed on low-dose dobutamine, Lasix drip and IV nitro for afterload reduction. This morning he is almost 3 L negative and feels quite well. He said he was able to sleep through the night without any significant shortness of breath. He has not been up and walking yet but feels as though he can without too much trouble. He denies chest pain lightheadedness or dizziness. Review of Systems Review of Systems ROS Unobtainable: All systems reviewed & are unremarkable except as noted in HPI and below PFSH Medical History (Updated 05/25/19 @ 21:22 by Jewel Isaacs) Anticoagulated (Acute) Anticoagulated on warfarin (Inactive) A-fib; INR goal 2-3 Anxiety Atrial fibrillation BPH (benign prostatic hyperplasia) CAD (coronary artery disease) Cardiomyopathy COPD (chronic obstructive pulmonary disease) Epigastric pain Essential hypertension Former smoker History of left heart catheterization (Inactive) History of tobacco use (Inactive) Internal hemorrhoids [facility] (myocardial infarction) Mitral regurgitation (Chronic) Mitral valve regurgitation Oral lesion MAGAN (obstructive sleep apnea) MAGAN treated with BiPAP Rectal bleeding Retinal detachment of left eye without retinal defect (Inactive 06/19/16) Right lumbar radiculopathy Tachy-danni syndrome Trigger finger, right middle finger Trigger finger, right middle finger (Inactive 02/17/17) Trigger middle finger of right hand (Resolved) SURGERY 04/16/18 Surgical History (Updated 05/25/19 @ 21:11 by Jewel Isaacs) Arthroscopy, Shoulder (~1966) right Cholecystectomy Fracture of radius, distal, with ulna, right, closed (Inactive) Percutaneous pinning DOS: 10/25/18 Dr. Sheridan History of colonoscopy (Chronic 04/13/18) Dr Lundberg History of esophagogastroduodenoscopy (EGD) (Chronic 04/13/18) Dr Lundberg History of hemorrhoidectomy (Chronic 05/11/18) EUA, banding, Dr Lundberg History of partial thyroidectomy (Inactive) left heart cadiac cath (~1982) Repair of inguinal hernia x 2 Status post arthroscopy of shoulder (Inactive) Status post inguinal hernia repair (Inactive) Thyroid right lobectomy 2005 Family History Mother No problems noted. Father No problems noted. Brother No problems noted. Social History Smoking/Tobacco Use Status: Former Tobacco Use Quit Date: 08/03/85 Alcohol Intake: current Alcohol Intake frequency: a few times a week Alcohol type: beer Drug use: Never Substance use type: does not use Aleyda/Scientologist: No preference Special aleyda needs: No Do you feel safe at home: Yes Do you feel safe in your relationship?: Yes Exam Const General: comfortable and no acute distress [facility] Head: normocephalic and atraumatic Eyes General: appearance normal, both eyes and all related structures Resp Effort & Inspection: normal respiratory effort Auscultation: clear to auscultation bilaterally Cardio Jugular venous pressure: no JVD Palpation: normal PMI Rate: bradycardic Rhythm: abnormal rhythm irregularly irregular Heart Sounds: S1 normal and murmur systolic holo, IV/ and at the apex GI Palpation: soft Auscultation: normoactive bowel sounds Skin General skin exam: no rashes or lesions noted Extrem General: normal to inspection and edema (1+ to the knee) Laterality: bilateral Psych Appearance: grossly normal Results Last Vital Signs Temp 36.8 C 05/26/19 03:20 Pulse 42 L 05/26/19 08:01 Resp 17 05/26/19 08:01 BP 94/64 L 05/26/19 08:01 Pulse Ox 90 L 05/26/19 08:01 Labs Result diagrams: 05/25/19 13:35 05/26/19 06:45 Labs: Laboratory Results - last 24 hr 05/25/19 05/25/19 05/25/19 13:35 13:35 13:35 WBC 10.09 RBC 5.29 Hgb 15.3 Hct 46.5 MCV 87.9 MCH 28.9 MCHC 32.9 RDW 14.4 H Plt Count 250 MPV 10.7 Immature Gran % 0.6 Neutrophils % 85.8 Lymphocytes % 8.5 Monocytes % 4.9 Eosinophils % 0.1 Basophils % 0.1 Absolute Neutrophils 8.66 H Absolute Lymphocytes 0.86 L Absolute Monocytes 0.49 Absolute Eosinophils 0.01 Absolute Basophils 0.01 PT 11.2 H INR 1.1 APTT 25.0 Sodium 139 Potassium 4.3 Chloride 101 Carbon Dioxide 28.2 Anion Gap 9.8 BUN 34 H Creatinine 2.07 H Estimated GFR/1.73 m2 31.05 Glucose 159 H Calcium 8.4 L Magnesium 2.3 Total Bilirubin 0.7 AST 26 ALT 58 Alkaline Phosphatase 75 Troponin I < 0.05 NT-Pro-B Natriuret Pep 4881 H Total Protein 7.5 Albumin 4.0 TSH Free T4 05/25/19 05/25/19 05/26/19 17:10 20:55 06:45 WBC RBC Hgb Hct MCV MCH MCHC RDW Plt Count MPV Immature Gran % Neutrophils % Lymphocytes % Monocytes % Eosinophils % Basophils % Absolute Neutrophils Absolute Lymphocytes Absolute Monocytes Absolute Eosinophils Absolute Basophils PT INR APTT Sodium 139 Potassium 3.8 Chloride 101 Carbon Dioxide 28.5 Anion Gap 9.5 BUN 39 H Creatinine 1.92 H Estimated GFR/1.73 m2 33.87 Glucose 124 H Calcium 8.2 L Magnesium 2.3 Total Bilirubin AST ALT Alkaline Phosphatase Troponin I < 0.05 < 0.05 0.05 NT-Pro-B Natriuret Pep 7299 H Total Protein Albumin TSH 8.42 H Free T4 0.98 EKG interpretations Dysrhythmias Supraventricular dysrhythmia: atrial fibrillation (slow ventricular response) Ventricular dysrhythmias: ventricular premature complexes
[2019-05-26] MEDS: Pantoprazole 40 MG TABCR PO ×2 (09:16→19:50)
[2019-05-26] MEDS: Lactobacillus Acidophilus CAP 1 CAP PO (09:17)
[2019-05-26] MEDS: Apixaban 5 MG TAB PO (09:17)
[2019-05-26] MEDS: PARoxetine 20 MG TAB PO (09:17)
[2019-05-26] MEDS: Potassium Chloride 20 MEQ TABCR PO (09:17)
[2019-05-26] MEDS: Sucralfate 1 GM TAB PO ×3 (09:17→16:18)
[2019-05-26] MEDS: Tiotropium Bromide-Respimat 10 PUFF INH IH (11:04)
--- NOTE | 2019-05-26 14:24 | PHARADMIT ---
Addendum entered by Nayely Canela 05/29/19 13:18: Pharmacy Note Subjective pt with mitral regurgitation, needs cardio appt on discharge, needs pacemaker eval Objective vs ok(HR low but normal for pt), Scr down to 1.74, Assessment doxazosin from home med list restarted Plan possible discharge soon Addendum entered by Nayely Canela 05/28/19 11:14: Pharmacy Note Subjective pt improving Objective i/o -1800ml yesterday, wt down 1kg from yesterday, SCr up from yesterday Assessment furosemide infusion stopped, PO started. home meds not ordered: Doxazosin, metoprolol Plan d/c possible 24 post furosemide infusion stopping Original Note: Admission Pharmacy Clinical Review ACUTE ON CHRONIC CHF Code Status Full Code Current Weight 94.7 kg Renally Cleared and Narrow Therapeutic Index Meds CrCl ~28ml/min QTc Value / Action Taken QTc 485 BP Control, Fever BP 128/73, afebrile Electrolytes reviewed Na 139, K+ 3.8, Mag 2.3 DVT Prophylaxis No Opiate Usage / Scheduled Bowel Regimen Ordered Plt/SCr for Heparin / Enoxaparin Plt 250, SCr 2.06 INR for Warfarin H/H stable, WBC/Bands H/H 15.3/46.5 Antibiotic appropriateness Cultures and Sensitivities Surgical ABX d/c within 24 hr DM control / Insulin Dosing Heart Failure (Check EF%) (EMILY's, B-Block, Diuretics) Lasix gtt, metoprolol at home IV to PO Switch Home Meds Reviewed Yes -- all ok Home Meds Not Ordered Doxazosin, metoprolol, potassium Comments Renally adjusted eliquis (pt is 78yo and Scr is above 1.5) Restart BB once pt is no longer decompensated per cardio note
[2019-05-26 14:37] LABS: Anion Gap 9.8 mmol/L (3-11); BUN 39 mg/dL (7-18); CO2 30.2 mmol/L (21.0-32.0); CREATININE 2.06 mg/dL (0.70-1.30); Calcium 8.1 mg/dL (8.5-10.1); Chloride 100 mmol/L (98-107); Estimated GFR 31.23 (mL/min/1.73m2); Glucose 150 mg/dL (70-100); Potassium 3.4 mmol/L (3.5-5.1); Sodium 140 mmol/L (136-145)
[2019-05-26 15:37] LABS: Magnesium 2.4 mg/dL (1.8-2.4)
[2019-05-26] MEDS: Normal Saline Flush 10 ML SYR IVP (16:24)
[2019-05-26] MEDS: Potassium Chloride 20 MEQ TABCR 40 MEQ PO ×2 (16:57→19:51)
[2019-05-26] MEDS: Normal Saline 500 ML 10 ML IV (19:30)
[2019-05-26] MEDS: Apixaban 2.5 MG TAB PO (19:51)
[2019-05-26] MEDS: Finasteride 5 MG TAB PO (22:07)
[2019-05-27] VITALS (38 sets, daily range): BP systolic 111–144; BP diastolic 58–84; PULSE 40–74; RESP 11–26; TEMP 36.3–36.7; O2SAT 86–96
[2019-05-27] MEDS: Sucralfate 1 GM TAB PO ×3 (05:41→16:38)
[2019-05-27 07:20] LABS: BUN 35 mg/dL (7-18); CREATININE 1.88 mg/dL (0.70-1.30); Calcium 8.2 mg/dL (8.5-10.1); Chloride 98 mmol/L (98-107); Glucose 125 mg/dL (70-100); Magnesium 2.2 mg/dL (1.8-2.4); Potassium 3.7 mmol/L (3.5-5.1); Sodium 138 mmol/L (136-145)
[2019-05-27] MEDS: Apixaban 2.5 MG TAB PO ×2 (08:09→20:20)
[2019-05-27] MEDS: Lactobacillus Acidophilus CAP 1 CAP PO (08:09)
[2019-05-27] MEDS: Potassium Chloride 20 MEQ TABCR 40 MEQ PO ×2 (08:09→20:21)
[2019-05-27] MEDS: PARoxetine 20 MG TAB PO (08:10)
[2019-05-27] MEDS: Pantoprazole 40 MG TABCR PO ×2 (08:10→20:21)
--- NOTE | 2019-05-27 08:28 | PGE_ITS ---
Date of Service Date of service: 05/27/19 Time of Service: 16:38 Assessment and Plan Assessment and plan (1) Acute on chronic systolic CHF (congestive heart failure): Status: Acute Assessment and plan: I am not sure we can trust EF from yesterday - it was reportedly 40-45%, but it was done on a small dose of dobutamine. LONA will be done prior to mitral clipping at [facility] next week. Continue lasix gtt, monitoring I/O's, daily weight. (2) Mitral regurgitation: Status: Chronic Assessment and plan: Will need clipping - appointment at [facility] expidited to 06/02/19. Appreciate cardiology help. Qualifiers: Cardiac valve disease etiology: etiology unspecified Qualified Code(s): I34.0 - Nonrheumatic mitral (valve) insufficiency (3) Atrial fibrillation: Status: None Assessment and plan: Monitor on tele. May require a pacer given SSS. Qualifiers: Atrial fibrillation type: longstanding persistent Qualified Code(s): I48.11 - Longstanding persistent atrial fibrillation (4) Acute on chronic renal failure: Status: Acute Assessment and plan: Monitor Cr while diuresing with lasix drip. Qualifiers: Acute renal failure type: unspecified Chronic kidney disease stage: unspecified stage Qualified Code(s): N17.9 - Acute kidney failure, unspecified; N18.9 - Chronic kidney disease, unspecified (5) Cardiomyopathy: Status: None Assessment and plan: Likely related to mitral regurg, but will need ischemic workup as well - will need a cardiac cath as outpatient. No ACS. Qualifiers: Cardiomyopathy type: dilated Qualified Code(s): I42.0 - Dilated cardiomyopathy (6) Urinary retention: Status: Resolved Assessment and plan: S/p ybarra while on lasix gtt. (7) MAGAN treated with BiPAP: Status: None Assessment and plan: BiPAP @ HS (8) DVT prophylaxis: Status: Acute Assessment and plan: Continue apixaban (9) Discharge planning issues: Status: Acute Assessment and plan: Keep in the ICU. Full code Plan to discharge home in 24- 48 hours with outpatient follow up with [facility] cardiology for mitral valve clipping. Subjective Subjective Interval history since last seen: Feels better. Denies dizziness, chest pain, shortness of breath at rest (does still get it with activity). Denies n/v. Wore BiPAP for 1 hr overnight. Taken off due to air leak. HR between 30s to 55. He is asymptomatic and asleep when HR in 30's. Lots of Pauses - maximum 2.25 . On lasix gtt. Ybarra stopped draining; not better with flushing - urology called. Not requiring O2. Exam Narrative Exam Narrative: General: very pleasant elderly male, A&Ox3, laying comfortably at a 15 degree angle HEENT: EOMI, MMM Heart:irregularly irregular rhythm, no m/r/g Lungs: crackles at R base GI: abdomen is soft, nontender, nondistended Extremities: no edema BLE's Objective Objective Clinical Data: Abnormal lab results 05/26/19 05/27/19 Range/Units 14:14 06:35 Potassium 3.4 L (3.5-5.1) mmol/L Anion Gap 12.0 H (3-11) mmol/L BUN 39 H 35 H (7-18) mg/dL Creatinine 2.06 H 1.88 H (0.70-1.30) mg/dL Glucose 150 H 125 H (70-100) mg/dL Calcium 8.1 L 8.2 L (8.5-10.1) mg/dL Vital Signs Temperature 36.4 C L 05/27/19 03:38 Temperature Source Temporal Artery Scan 05/27/19 03:38 Pulse 42 L 05/27/19 07:26 Pulse 47 L 05/27/19 07:26 Respiratory Rate 19 05/27/19 07:26 Respiratory Effort Non-Labored 05/27/19 03:38 Respiratory Depth Shallow 05/27/19 03:38 Respiratory Pattern Normal 05/27/19 03:38 Blood Pressure 137/74 05/27/19 07:26 Blood Pressure Mean 89 05/27/19 07:26 Blood Pressure Position Sitting 05/25/19 13:13 Pulse Oximetry 95 05/27/19 07:38 Oxygen Delivery Method Room Air 05/27/19 07:38 Oxygen Flow Rate 0 05/27/19 07:38 Fraction of Inspired Oxygen (FIO2) 21 05/27/19 07:34 Pain Level 0 05/27/19 03:38 Comment 05/26/19 11:05 Intake & Output 10/24/19 10/24/19 10/25/19 11:59 23:59 11:59 Intake Total 343.455 / 764.955 421.500 / 764.955 93.384 / 93.384 Output Total 2475 / 4805 2330 / 4805 825 / 825 Balance -2131.545 / -4040.045 -1908.500 / -4040.045 -731.616 / -731.616 Weight 94.7 kg 91.9 kg Intake: IV 148.455 / 232.955 84.500 / 232.955 93.384 / 93.384 Oral 195 / 532 337 / 532 Output: Urine 2475 / 4805 2330 / 4805 825 / 825 Other: Urine Color Pale Light Sofia Light Sofia Yellow [place] Urine Appearance Cloudy Clear Urine Odor None Comment Ybarra in place drip continued at 2.5mg/hr increased drip to 5.5 Stool Size Moderate Stool Characteristics Formed Voiding Methods Indwelling Catheter Laboratory Results WBC 10.09 k/cumm (4.4-10.8) 05/25/19 13:35 RBC 5.29 m/cumm (4.50-6.00) 05/25/19 13:35 Hgb 15.3 g/dL (13.5-17.5) 05/25/19 13:35 Hct 46.5 % (40.0-50.0) 05/25/19 13:35 MCV 87.9 fL (80-95) 05/25/19 13:35 MCH 28.9 pg (27.0-33.0) 05/25/19 13:35 MCHC 32.9 g/dL (32.0-36.0) 05/25/19 13:35 RDW 14.4 % (11.8-14.1) H 05/25/19 13:35 Plt Count 250 x1000/uL (130-400) 05/25/19 13:35 MPV 10.7 fL (8.0-11.0) 05/25/19 13:35 Immature Gran % 0.6 05/25/19 13:35 Neutrophils % 85.8 05/25/19 13:35 Lymphocytes % 8.5 05/25/19 13:35 Monocytes % 4.9 05/25/19 13:35 Eosinophils % 0.1 05/25/19 13:35 Basophils % 0.1 05/25/19 13:35 Absolute Neutrophils 8.66 k/cumm (1.2-6.7) H 05/25/19 13:35 Absolute Lymphocytes 0.86 k/cumm (1.2-3.4) L 05/25/19 13:35 Absolute Monocytes 0.49 k/cumm (0.11-0.7) 05/25/19 13:35 Absolute Eosinophils 0.01 k/cumm (0.0-0.7) 05/25/19 13:35 Absolute Basophils 0.01 k/cumm (0.0-0.2) 05/25/19 13:35 PT 11.2 sec (9.3-11.0) H 05/25/19 13:35 INR 1.1 (0.9-1.1) 05/25/19 13:35 APTT 25.0 sec (21.0-31.4) 05/25/19 13:35 Sodium 138 mmol/L (136-145) 05/27/19 06:35 Potassium 3.7 mmol/L (3.5-5.1) 05/27/19 06:35 Chloride 98 mmol/L (98-107) 05/27/19 06:35 Carbon Dioxide 28.0 mmol/L (21.0-32.0) 05/27/19 06:35 Anion Gap 12.0 mmol/L (3-11) H 05/27/19 06:35 BUN 35 mg/dL (7-18) H 05/27/19 06:35 Creatinine 1.88 mg/dL (0.70-1.30) H 05/27/19 06:35 Estimated GFR/1.73 m2 34.70 (mL/min/1.73m2) 05/27/19 06:35 Glucose 125 mg/dL (70-100) H 05/27/19 06:35 Calcium 8.2 mg/dL (8.5-10.1) L 05/27/19 06:35 Magnesium 2.2 mg/dL (1.8-2.4) 05/27/19 06:35 Total Bilirubin 0.7 mg/dL (0.2-1.0) 05/25/19 13:35 AST 26 U/L (15-37) 05/25/19 13:35 ALT 58 U/L (16-63) 05/25/19 13:35 Alkaline Phosphatase 75 U/L (46-116) 05/25/19 13:35 Troponin I 0.05 ng/mL (0.00-0.06) 05/26/19 06:45 NT-Pro-B Natriuret Pep 7299 pg/mL (-299) H 05/26/19 06:45 Total Protein 7.5 g/dL (6.4-8.2) 05/25/19 13:35 Albumin 4.0 g/dL (3.4-5.0) 05/25/19 13:35 TSH 8.42 uIU/mL (0.36-3.74) H 05/26/19 06:45 Free T4 0.98 ng/dL (0.76-1.46) 05/26/19 06:45
[2019-05-27 08:44] LABS: Abs Immature Grans 0.11 k/cumm (0.0-0.09); Absolute Basophil Count 0.02 k/cumm (0.0-0.2); Absolute Eosinophil Count 0.06 k/cumm (0.0-0.7); Absolute Lymphocyte Count 1.41 k/cumm (1.2-3.4); Absolute Monocyte Count 1.25 k/cumm (0.11-0.7); Absolute Neutrophil Count 6.23 k/cumm (1.2-6.7); Basophils % 0.2; Eosinophils % 0.7; HCT 44.3 % (40.0-50.0); Immature Grans % 1.2; Lymphocytes % 15.5; Mean Corp. HGB Concentration 33.9 g/dL (32.0-36.0); Mean Corpuscular Hemoglobin 29.4 pg (27.0-33.0); Mean Corpuscular Volume 86.9 fL (80-95); Mean Platelet Volume 10.9 fL (8.0-11.0); Monocytes % 13.8; Neutrophils % 68.6; Platelet Count 220 x1000/uL (130-400); RBC Distribution Width 14.4 % (11.8-14.1); White Blood Cell Count 9.08 k/cumm (4.4-10.8)
[2019-05-27] MEDS: Acetaminophen 325 MG TAB PO (08:44)
[2019-05-27] MEDS: Tiotropium Bromide-Respimat 10 PUFF INH IH (09:22)
--- NOTE | 2019-05-27 17:15 | CMPROGNOTE_ITS ---
- If Service Date Differs Date of service: 05/27/19 Time of Service: 17:15 Care Management Progress Note S/O: Jovanni was sitting up in bed when CM met with him.He appeared to be in good spirits, laughing and joking throughout the visit. He states he is feeling OK but hopes to feel better after his mitral valve procedure at [facility] scheduled for 06/02/19. A: Jovanni is a very pleasant gentleman admitted to [facility] on 05/25/19 with CHF P:Jovanni will likely be discharged home with no new services. He will follow up with cardiology at [facility] as well as hisa PCP. CM will continue to support patient, family and discharge planning needs
[2019-05-27] MEDS: Finasteride 5 MG TAB PO (20:20)
[2019-05-28] VITALS (34 sets, daily range): BP systolic 115–162; BP diastolic 58–119; PULSE 42–81; RESP 11–23; TEMP 36.2–37; O2SAT 88–97
[2019-05-28 06:42] LABS: Abs Immature Grans 0.09 k/cumm (0.0-0.09); Absolute Basophil Count 0.02 k/cumm (0.0-0.2); Absolute Eosinophil Count 0.07 k/cumm (0.0-0.7); Absolute Lymphocyte Count 1.49 k/cumm (1.2-3.4); Absolute Monocyte Count 1.37 k/cumm (0.11-0.7); Absolute Neutrophil Count 7.31 k/cumm (1.2-6.7); Basophils % 0.2; Eosinophils % 0.7; HCT 45.3 % (40.0-50.0); HGB 15.3 g/dL (13.5-17.5); Immature Grans % 0.9; Lymphocytes % 14.4; Mean Corp. HGB Concentration 33.8 g/dL (32.0-36.0); Mean Corpuscular Hemoglobin 29.1 pg (27.0-33.0); Mean Corpuscular Volume 86.3 fL (80-95); Mean Platelet Volume 10.7 fL (8.0-11.0); Monocytes % 13.2; Neutrophils % 70.6; Platelet Count 219 x1000/uL (130-400); RBC 5.25 m/cumm (4.50-6.00); RBC Distribution Width 14.4 % (11.8-14.1); White Blood Cell Count 10.35 k/cumm (4.4-10.8)
[2019-05-28 07:00] LABS: Anion Gap 10.5 mmol/L (3-11); BUN 38 mg/dL (7-18); CO2 27.5 mmol/L (21.0-32.0); CREATININE 2.01 mg/dL (0.70-1.30); Calcium 8.6 mg/dL (8.5-10.1); Chloride 100 mmol/L (98-107); Estimated GFR 32.12 (mL/min/1.73m2); Glucose 138 mg/dL (70-100); Magnesium 2.3 mg/dL (1.8-2.4); Potassium 3.9 mmol/L (3.5-5.1); Sodium 138 mmol/L (136-145)
[2019-05-28] MEDS: Tiotropium Bromide-Respimat 10 PUFF INH IH (07:59)
[2019-05-28] MEDS: PARoxetine 20 MG TAB PO (08:35)
[2019-05-28] MEDS: Pantoprazole 40 MG TABCR PO ×2 (08:35→20:01)
[2019-05-28] MEDS: Apixaban 2.5 MG TAB PO ×2 (08:35→20:01)
[2019-05-28] MEDS: Acetaminophen 325 MG TAB PO (08:35)
[2019-05-28] MEDS: Sucralfate 1 GM TAB PO ×3 (08:35→16:34)
[2019-05-28] MEDS: Potassium Chloride 20 MEQ TABCR 40 MEQ PO ×2 (08:35→20:01)
[2019-05-28] MEDS: Lactobacillus Acidophilus CAP 1 CAP PO (08:35)
[2019-05-28] MEDS: Potassium Chloride 10 MEQ TABCR PO (10:34)
--- NOTE | 2019-05-28 10:55 | CMPROGNOTE_ITS ---
- If Service Date Differs Date of service: 05/28/19 Time of Service: 10:55 Care Management Progress Note S/O: Jovanni is engaged during assessment he states he is feeling a little better. His spouse has returned home she did request from nursing staff assistance with his appointment at [facility] and transportation. CM faxed referral to [facility] and [facility] to support transportation through aging and disability. A: Jovanni is a very pleasant gentleman admitted to [facility] on 05/25/19 with CHF P:Jovanni will be discharged when medically ready. He has a follow up appointment with cardiology on 06/02/19 at [facility] and will need assistance with transportation CM faxed referrals. Jovanni's spouse is not able to drive the distance due to her vision. CM will send a referral to [place] [facility] and [facility] for the appointment. CM to continue to provide support to patient and family discharge planning.
--- NOTE | 2019-05-28 16:16 | W.PM.PROGNOT ---
Date of Service Date of service: 05/28/19 Time of Service: 16:16 Assessment and Plan Assessment and plan (1) Acute on chronic systolic CHF (congestive heart failure): Status: Acute Assessment and plan: Acute CHF exacerbation in the setting of severe mitral regurgitation. ECHO with LVEF 50%, with findings potentially limited as patient was obtained on dobutamine drip at the time of the exam. -Appears euvolemic. Discontinue furosemide gtt and initiate oral furosemide at twice daily dosing. -Monitor strict I's and O's, daily weights. Currently appears to be approximately 8 L negative since time of admission. -For potential mitral clipping at [facility] - appointment expedited to 06/02 following official cardiology evaluation. (2) Mitral regurgitation: Status: Chronic Assessment and plan: Severe MR with underlying dilated LV with likely concurrent dysfunction and acute CHF exacerbation, likely qualifies patient for intervention. Has follow-up with [facility] cardiology. - Will likely need ischemic evaluation (although cardiomyopathy likely valvular in nature) prior to intervention. Patient also needs to be evaluated for a Pacer (see below). Qualifiers: Cardiac valve disease etiology: etiology unspecified Qualified Code(s): I34.0 - Nonrheumatic mitral (valve) insufficiency (3) Cardiomyopathy: Status: None Assessment and plan: Potentially valvular in nature, but would consider ischemic work-up prior to intervention and valve repair. Qualifiers: Cardiomyopathy type: dilated Qualified Code(s): I42.0 - Dilated cardiomyopathy (4) Bradycardia: Status: Acute Assessment and plan: History of Chronic Afib, with potential Tachy-Ryan syndrome super-imposed as well. Has been persistently bradycardic, albeit asymptomatic, despite having BB therapy on hold. - Continue to hold BB. Patient would benefit from Beta Blockers ultimately, but current HRs mostly in the 40-50's. May need further evaluation for ultimate pacer placement. (5) Atrial fibrillation: Status: None Assessment and plan: Continue anticoagulation with Apixaban. BB on hold as above. Qualifiers: Atrial fibrillation type: longstanding persistent Qualified Code(s): I48.11 - Longstanding persistent atrial fibrillation (6) Acute on chronic renal failure: Status: Acute Assessment and plan: Creatinine slightly above baseline in the setting of diuresis - continue to monitor with change in diuretic therapy as above. Renally dose medications when needed, and avoid nephrotoxins. Qualifiers: Acute renal failure type: unspecified Chronic kidney disease stage: unspecified stage Qualified Code(s): N17.9 - Acute kidney failure, unspecified; N18.9 - Chronic kidney disease, unspecified (7) BPH w urinary obs/LUTS: Status: Chronic Assessment and plan: Doxazosin currently on hold - will resume at half dose prior to attempting void trial tomorrow. (8) DVT prophylaxis: Status: Acute Assessment and plan: On chronic anticoagulation with apixaban. (9) Advance directive discussed with patient: Status: Acute Assessment and plan: Full code. Subjective Subjective Interval history since last seen: 78 year old man with a prior history of Severe MR, admitted from [facility] Emergency Department on 05/25 with a diagnosis of Acute CHF. Mr. Figueroa has a prior history of Severe MR, CAD, and Cardiomyopathy, as well as CKD, HTN, Afib on AC, BPH, COPD, chronic back pain, GERD with prior peptic ulcer disease, and MAGAN on BiPAP therapy. 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 The patient presented to the ED with complaints of progressive exertional dyspnea and chest pressure, ongoing over a period of approximately one month, and gradually worsening. He was initially seen on 05/21 with similiar complaints, treated with IV Furosemide, and recommended admission but declined by the patient. At the time of presentation to the ED Mr. Figueroa was still awaiting an appointment at [facility] for evaluation of his severe MR. Initially treated with IV Dobutamine and Nitroglycerine, Mr. Figueroa has been maintained solely on a lasix drip and feeling well. His weight has decreased nicely since admission, and he has diuresed a total of approximately 8L. The patient has no complaints this morning. No overnight events reported. Remains afebrile. Exam Narrative Exam Narrative: General: Patient appears comfortable, AAOX3, NAD Neck: Supple CV: Regular, nontachycardic, 3/6 LLSB murmur appreciated. Pulmonary: Clear to auscultation bilaterally, no crackles, wheezing, or rhonchi Abdomen: + Bowel Sounds, soft, nontender, nondistended Vascular: No lower extremity edema Psych: Normal mood and affect. Objective Objective Clinical Data: Abnormal lab results 05/28/19 05/28/19 Range/Units 06:15 06:15 RDW 14.4 H (11.8-14.1) % Absolute Neutrophils 7.31 H (1.2-6.7) k/cumm Absolute Monocytes 1.37 H (0.11-0.7) k/cumm BUN 38 H (7-18) mg/dL Creatinine 2.01 H (0.70-1.30) mg/dL Glucose 138 H (70-100) mg/dL Vital Signs Temperature 36.5 C 05/28/19 11:53 Temperature Source Temporal Artery Scan 05/28/19 11:53 Pulse 44 L 05/28/19 14:01 Pulse 66 05/28/19 14:01 Respiratory Rate 14 05/28/19 14:01 Respiratory Effort 05/28/19 11:53 Respiratory Depth Normal 05/28/19 11:53 Respiratory Pattern Normal 05/28/19 11:53 Blood Pressure 125/74 05/28/19 14:01 Blood Pressure Mean 87 05/28/19 14:01 Blood Pressure Position Supine 05/28/19 11:53 Pulse Oximetry 95 05/28/19 11:54 Oxygen Delivery Method Room Air 05/28/19 11:53 Oxygen Flow Rate 0 05/28/19 11:53 Fraction of Inspired Oxygen (FIO2) 21 05/27/19 07:34 Pain Level 0 05/28/19 11:53 Comment 05/26/19 11:05 Intake & Output 05/27/19 05/28/19 05/28/19 23:59 11:59 23:59 Intake Total 387.267 / 493.693 462.634 / 712.634 250 / 712.634 Output Total 890 / 2315 1175 / 1325 150 / 1325 Balance -502.733 / -1821.307 -712.366 / -612.366 100 / -612.366 Weight 90.8 kg Intake: IV 27.267 / 133.693 332.634 / 342.634 10 / 342.634 Oral 360 / 360 130 / 370 240 / 370 Output: Urine 890 / 2315 1175 / 1325 150 / 1325 Other: Urine Color Dark Sofia Yellow Dark [place] Urine Appearance Clots Sediment Sediment Hematuria Hematuria Comment ybarra draining bedside bag Lasix DCd; Ybarra in place; few clots, hematuria at times Stool Occult Blood Negative Negative Positive Stool Size Small Moderate Large Stool Characteristics Soft Soft Soft Formed Formed Laboratory Results WBC 10.35 k/cumm (4.4-10.8) 05/28/19 06:15 RBC 5.25 m/cumm (4.50-6.00) 05/28/19 06:15 Hgb 15.3 g/dL (13.5-17.5) 05/28/19 06:15 Hct 45.3 % (40.0-50.0) 05/28/19 06:15 MCV 86.3 fL (80-95) 05/28/19 06:15 MCH 29.1 pg (27.0-33.0) 05/28/19 06:15 MCHC 33.8 g/dL (32.0-36.0) 05/28/19 06:15 RDW 14.4 % (11.8-14.1) H 05/28/19 06:15 Plt Count 219 x1000/uL (130-400) 05/28/19 06:15 MPV 10.7 fL (8.0-11.0) 05/28/19 06:15 Immature Gran % 0.9 05/28/19 06:15 Neutrophils % 70.6 05/28/19 06:15 Lymphocytes % 14.4 05/28/19 06:15 Monocytes % 13.2 05/28/19 06:15 Eosinophils % 0.7 05/28/19 06:15 Basophils % 0.2 05/28/19 06:15 Absolute Neutrophils 7.31 k/cumm (1.2-6.7) H 05/28/19 06:15 Absolute Lymphocytes 1.49 k/cumm (1.2-3.4) 05/28/19 06:15 Absolute Monocytes 1.37 k/cumm (0.11-0.7) H 05/28/19 06:15 Absolute Eosinophils 0.07 k/cumm (0.0-0.7) 05/28/19 06:15 Absolute Basophils 0.02 k/cumm (0.0-0.2) 05/28/19 06:15 PT 11.2 sec (9.3-11.0) H 05/25/19 13:35 INR 1.1 (0.9-1.1) 05/25/19 13:35 APTT 25.0 sec (21.0-31.4) 05/25/19 13:35 Sodium 138 mmol/L (136-145) 05/28/19 06:15 Potassium 3.9 mmol/L (3.5-5.1) 05/28/19 06:15 Chloride 100 mmol/L (98-107) 05/28/19 06:15 Carbon Dioxide 27.5 mmol/L (21.0-32.0) 05/28/19 06:15 Anion Gap 10.5 mmol/L (3-11) 05/28/19 06:15 BUN 38 mg/dL (7-18) H 05/28/19 06:15 Creatinine 2.01 mg/dL (0.70-1.30) H 05/28/19 06:15 Estimated GFR/1.73 m2 32.12 (mL/min/1.73m2) 05/28/19 06:15 Glucose 138 mg/dL (70-100) H 05/28/19 06:15 Calcium 8.6 mg/dL (8.5-10.1) 05/28/19 06:15 Magnesium 2.3 mg/dL (1.8-2.4) 05/28/19 06:15 Total Bilirubin 0.7 mg/dL (0.2-1.0) 05/25/19 13:35 AST 26 U/L (15-37) 05/25/19 13:35 ALT 58 U/L (16-63) 05/25/19 13:35 Alkaline Phosphatase 75 U/L (46-116) 05/25/19 13:35 Troponin I 0.05 ng/mL (0.00-0.06) 05/26/19 06:45 NT-Pro-B Natriuret Pep 7299 pg/mL (-299) H 05/26/19 06:45 Total Protein 7.5 g/dL (6.4-8.2) 05/25/19 13:35 Albumin 4.0 g/dL (3.4-5.0) 05/25/19 13:35 TSH 8.42 uIU/mL (0.36-3.74) H 05/26/19 06:45 Free T4 0.98 ng/dL (0.76-1.46) 05/26/19 06:45
[2019-05-28] MEDS: Furosemide 40 MG TAB PO (16:34)
[2019-05-28] MEDS: Doxazosin 2 MG TAB PO (21:42)
[2019-05-28] MEDS: Finasteride 5 MG TAB PO (21:42)
[2019-05-29] VITALS (19 sets, daily range): BP systolic 121–152; BP diastolic 70–92; PULSE 45–89; RESP 13–27; TEMP 36.4–37.4; O2SAT 95–96
[2019-05-29] MEDS: Pantoprazole 40 MG TABCR PO ×2 (06:22→20:14)
[2019-05-29] MEDS: Sucralfate 1 GM TAB PO ×3 (06:22→17:39)
[2019-05-29 07:04] LABS: Abs Immature Grans 0.11 k/cumm (0.0-0.09); Absolute Basophil Count 0.02 k/cumm (0.0-0.2); Absolute Eosinophil Count 0.08 k/cumm (0.0-0.7); Absolute Monocyte Count 1.34 k/cumm (0.11-0.7); Absolute Neutrophil Count 7.34 k/cumm (1.2-6.7); Basophils % 0.2; Eosinophils % 0.8; HGB 15.4 g/dL (13.5-17.5); Immature Grans % 1.1; Lymphocytes % 13.6; Mean Corp. HGB Concentration 33.5 g/dL (32.0-36.0); Mean Corpuscular Hemoglobin 28.9 pg (27.0-33.0); Mean Corpuscular Volume 86.5 fL (80-95); Mean Platelet Volume 10.9 fL (8.0-11.0); Neutrophils % 71.3; Platelet Count 219 x1000/uL (130-400); RBC 5.32 m/cumm (4.50-6.00); RBC Distribution Width 14.3 % (11.8-14.1); White Blood Cell Count 10.29 k/cumm (4.4-10.8)
[2019-05-29 07:14] LABS: Anion Gap 8.7 mmol/L (3-11); BUN 34 mg/dL (7-18); CO2 26.3 mmol/L (21.0-32.0); CREATININE 1.74 mg/dL (0.70-1.30); Calcium 8.6 mg/dL (8.5-10.1); Chloride 101 mmol/L (98-107); Estimated GFR 37.94 (mL/min/1.73m2); Glucose 143 mg/dL (70-100); Magnesium 2.3 mg/dL (1.8-2.4); Potassium 4.6 mmol/L (3.5-5.1); Sodium 136 mmol/L (136-145)
[2019-05-29] MEDS: Furosemide 40 MG TAB PO ×2 (08:25→17:39)
[2019-05-29] MEDS: Lactobacillus Acidophilus CAP 1 CAP PO (08:28)
[2019-05-29] MEDS: Potassium Chloride 20 MEQ TABCR 40 MEQ PO ×2 (08:28→20:14)
[2019-05-29] MEDS: PARoxetine 20 MG TAB PO (08:28)
[2019-05-29] MEDS: Apixaban 2.5 MG TAB PO ×2 (08:28→20:14)
[2019-05-29] MEDS: Acetaminophen 325 MG TAB PO (09:44)
[2019-05-29] MEDS: Normal Saline Flush 10 ML SYR IVP (09:44)
[2019-05-29] MEDS: Tiotropium Bromide-Respimat 10 PUFF INH IH (10:01)
--- NOTE | 2019-05-29 10:56 | CMPROGNOTE_ITS ---
- If Service Date Differs Date of service: 05/29/19 Time of Service: 10:56 Care Management Progress Note S/O: Jovanni is sitting up in bed he is alert he remains in the ICU at this time. LENA confirmed his appointments at [facility] for 06/02/19 at 0730 with cardiology and cardiac surgery. Jovanni is scheduled to meet with and at [facility]. CM has faxed request for transport to [facility] and [facility] and should hear from services on Thursday to confirm. Anticipate Jovanni will be discharged home early this week and follow up with cardiology as directed. A: Jovanni is a very pleasant gentleman admitted to [facility] on 05/25/19 with CHF P:Jovanni will be discharged when medically ready. He has a follow up appointment with cardiology on 06/02/19 at [facility] and will need assistance with transportation CM faxed referrals. Jovanni's spouse is not able to drive the distance due to her vision. CM will send a referral to [place] [facility] and [facility] for the appointment. CM to continue to provide support to patient and family discharge planning.
--- NOTE | 2019-05-29 10:56 | PDOC.CMPRO ---
- If Service Date Differs Date of service: 05/29/19 Time of Service: 10:56 Care Management Progress Note S/O: Jovanni is sitting up in bed he is alert he remains in the ICU at this time. LENA confirmed his appointments at [facility] [place]02[place]19 at 0730 with cardiology and cardiac surgery. Jovanni is scheduled to meet with and at [facility]. CM has faxed request for transport to [facility] and should hear from services on Thursday to confirm. Anticipate Jovanni will be discharged home early this week and follow up with cardiology as directed. A: Jovanni is a very pleasant gentleman admitted to [facility] on 05/25/19 with CHF P:Jovanni will be discharged when medically ready. He has a follow up appointment with cardiology on 06/02/19 at [facility] and will need assistance with transportation CM faxed referrals. Jovanni's spouse is not able to drive the distance due to her vision. CM will send a referral to [place] [facility] and [facility] for the appointment. CM to continue to provide support to patient and family discharge planning.
--- NOTE | 2019-05-29 14:45 | PGE_ITS ---
Date of Service Date of service: 05/29/19 Time of Service: 14:46 Assessment and Plan Assessment and plan (1) Acute on chronic systolic CHF (congestive heart failure): Status: Acute Assessment and plan: Acute CHF exacerbation in the setting of severe mitral regurgitation. ECHO with LVEF 50%, with findings potentially limited as patient was obtained on dobutamine drip at the time of the exam. -Appears euvolemic. Discontinued furosemide gtt and initiated oral furosemide at twice daily home dosing. -Current I's and O's, daily weights appear stable. Currently appears to be approximately 8 L negative since time of admission. -For potential mitral clipping at [facility] - appointment expedited to 06/02 following official cardiology evaluation. (2) Mitral regurgitation: Status: Chronic Assessment and plan: Severe MR with underlying dilated LV with likely concurrent dysfunction and acute CHF exacerbation, likely qualifies patient for intervention. Has follow-up with [facility] cardiology. - May require ischemic evaluation (although cardiomyopathy likely valvular in n ature) prior to intervention. Patient also needs to be evaluated for a Pacer (see below). Qualifiers: Cardiac valve disease etiology: etiology unspecified Qualified Code(s): I34.0 - Nonrheumatic mitral (valve) insufficiency (3) Cardiomyopathy: Status: None Assessment and plan: Potentially valvular in nature, but would consider ischemic work-up prior to intervention and valve repair. Qualifiers: Cardiomyopathy type: dilated Qualified Code(s): I42.0 - Dilated cardiomyopathy (4) Bradycardia: Status: Acute Assessment and plan: History of Chronic Afib, with potential Tachy-Ryan syndrome super-imposed as well. Has been persistently bradycardic, albeit asymptomatic, despite having BB therapy on hold. - Continue to hold BB. Patient would benefit from Beta Blockers ultimately, but current HRs mostly in the 40-50's. May need further evaluation for ultimate pacer placement. (5) Atrial fibrillation: Status: None Assessment and plan: Continue anticoagulation with Apixaban. BB on hold as above. Qualifiers: Atrial fibrillation type: longstanding persistent Qualified Code(s): I48.11 - Longstanding persistent atrial fibrillation (6) Acute on chronic renal failure: Status: Acute Assessment and plan: Creatinine slightly above baseline in the setting of diuresis, but improving - continue to monitor with change in diuretic therapy as above. Renally dose medications when needed, and avoid nephrotoxins. Qualifiers: Acute renal failure type: unspecified Chronic kidney disease stage: unspecified stage Qualified Code(s): N17.9 - Acute kidney failure, unspecified; N18.9 - Chronic kidney disease, unspecified (7) BPH w urinary obs/LUTS: Status: Chronic Assessment and plan: Doxazosin was on hold - resumed at half dose prior to successful void trial. Will titrate as able. (8) DVT prophylaxis: Status: Acute Assessment and plan: On chronic anticoagulation with apixaban. (9) Advance directive discussed with patient: Status: Acute Assessment and plan: Full code. Subjective Subjective Interval history since last seen: 78 year old man with a prior history of Severe MR, admitted from [facility] Emergency Department on 05/25 with a diagnosis of Acute CHF. Mr. Figueroa has a prior history of Severe MR, CAD, and Cardiomyopathy, as well as CKD, HTN, Afib on AC, BPH, COPD, chronic back pain, GERD with prior peptic ulcer disease, and MAGAN on BiPAP therapy. 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 The patient presented to the ED with complaints of progressive exertional dyspnea and chest pressure, ongoing over a period of approximately one month, and gradually worsening. He was initially seen on 05/21 with similiar complaints, treated with IV Furosemide, and recommended admission but declined by the patient. At the time of presentation to the ED Mr. Figueroa was still awaiting an appointment at [facility] for evaluation of his severe MR. Initially treated with IV Dobutamine and Nitroglycerine, Mr. Figueroa had been maintained solely on a lasix drip and feeling well, and changed to increased dose oral furosemide yesterday. His weight has decreased nicely since admission, and he has diuresed a total of approximately 8L - both weight and I/O's are slightly less than prior, but essentially stable, and creatinine continues to improve. The patient has no complaints this morning - underwent successful void trial. No overnight events reported. Remains afebrile. Exam Narrative Exam Narrative: General: Patient appears comfortable, AAOX3, NAD Neck: Supple CV: Regular, nontachycardic, 3/6 LLSB murmur appreciated. Pulmonary: Clear to auscultation bilaterally, no crackles, wheezing, or rhonchi Abdomen: + Bowel Sounds, soft, nontender, nondistended Vascular: No lower extremity edema Psych: Normal mood and affect. Objective Objective Clinical Data: Abnormal lab results 05/29/19 05/29/19 Range/Units 06:15 06:15 RDW 14.3 H (11.8-14.1) % Absolute Neutrophils 7.34 H (1.2-6.7) k/cumm Absolute Monocytes 1.34 H (0.11-0.7) k/cumm BUN 34 H (7-18) mg/dL Creatinine 1.74 H (0.70-1.30) mg/dL Glucose 143 H (70-100) mg/dL Vital Signs Temperature 36.4 C L 05/29/19 12:03 Temperature Source Temporal Artery Scan 05/29/19 12:03 Pulse 48 L 05/29/19 12:05 Pulse 85 05/29/19 12:05 Respiratory Rate 13 05/29/19 12:05 Respiratory Effort 05/29/19 12:03 Respiratory Depth Normal 05/29/19 12:03 Respiratory Pattern Normal 05/29/19 12:03 Blood Pressure 130/71 05/29/19 12:05 Blood Pressure Mean 83 05/29/19 12:05 Blood Pressure Position Supine 05/29/19 12:03 Pulse Oximetry 96 05/29/19 12:03 Oxygen Delivery Method Room Air 05/29/19 12:03 Oxygen Flow Rate 0 05/29/19 12:03 Fraction of Inspired Oxygen (FIO2) 21 05/27/19 07:34 Pain Level 0 05/29/19 12:03 Comment 05/26/19 11:05 Intake & Output 05/28/19 05/29/19 05/29/19 23:59 11:59 23:59 Intake Total 730 / 1192.634 260 / 500 240 / 500 Output Total 450 / 1625 700 / 850 150 / 850 Balance 280 / -432.366 -440 / -350 90 / -350 Weight 89.5 kg Intake: IV 10 / 342.634 Oral 720 / 850 240 / 480 240 / 480 Output: Urine 450 / 1625 700 / 850 150 / 850 Other: Urine Color Dark Jenaro Dark Jenaro Light Jenaro Urine Appearance Sediment Hematuria Clear Hematuria Urine Odor None None Comment Riley in place draining dark jenaro urine Riley in place draining dark jenaro urine urinal Stool Occult Blood Positive Negative Stool Size Large Small Stool Characteristics Soft Soft Formed Voiding Methods Indwelling Catheter Urinal Laboratory Results WBC 10.29 k/cumm (4.4-10.8) 05/29/19 06:15 RBC 5.32 m/cumm (4.50-6.00) 05/29/19 06:15 Hgb 15.4 g/dL (13.5-17.5) 05/29/19 06:15 Hct 46.0 % (40.0-50.0) 05/29/19 06:15 MCV 86.5 fL (80-95) 05/29/19 06:15 MCH 28.9 pg (27.0-33.0) 05/29/19 06:15 MCHC 33.5 g/dL (32.0-36.0) 05/29/19 06:15 RDW 14.3 % (11.8-14.1) H 05/29/19 06:15 Plt Count 219 x1000/uL (130-400) 05/29/19 06:15 MPV 10.9 fL (8.0-11.0) 05/29/19 06:15 Immature Gran % 1.1 05/29/19 06:15 Neutrophils % 71.3 05/29/19 06:15 Lymphocytes % 13.6 05/29/19 06:15 Monocytes % 13.0 05/29/19 06:15 Eosinophils % 0.8 05/29/19 06:15 Basophils % 0.2 05/29/19 06:15 Absolute Neutrophils 7.34 k/cumm (1.2-6.7) H 05/29/19 06:15 Absolute Lymphocytes 1.40 k/cumm (1.2-3.4) 05/29/19 06:15 Absolute Monocytes 1.34 k/cumm (0.11-0.7) H 05/29/19 06:15 Absolute Eosinophils 0.08 k/cumm (0.0-0.7) 05/29/19 06:15 Absolute Basophils 0.02 k/cumm (0.0-0.2) 05/29/19 06:15 PT 11.2 sec (9.3-11.0) H 05/25/19 13:35 INR 1.1 (0.9-1.1) 05/25/19 13:35 APTT 25.0 sec (21.0-31.4) 05/25/19 13:35 Sodium 136 mmol/L (136-145) 05/29/19 06:15 Potassium 4.6 mmol/L (3.5-5.1) 05/29/19 06:15 Chloride 101 mmol/L (98-107) 05/29/19 06:15 Carbon Dioxide 26.3 mmol/L (21.0-32.0) 05/29/19 06:15 Anion Gap 8.7 mmol/L (3-11) 05/29/19 06:15 BUN 34 mg/dL (7-18) H 05/29/19 06:15 Creatinine 1.74 mg/dL (0.70-1.30) H 05/29/19 06:15 Estimated GFR/1.73 m2 37.94 (mL/min/1.73m2) 05/29/19 06:15 Glucose 143 mg/dL (70-100) H 05/29/19 06:15 Calcium 8.6 mg/dL (8.5-10.1) 05/29/19 06:15 Magnesium 2.3 mg/dL (1.8-2.4) 05/29/19 06:15 Total Bilirubin 0.7 mg/dL (0.2-1.0) 05/25/19 13:35 AST 26 U/L (15-37) 05/25/19 13:35 ALT 58 U/L (16-63) 05/25/19 13:35 Alkaline Phosphatase 75 U/L (46-116) 05/25/19 13:35 Troponin I 0.05 ng/mL (0.00-0.06) 05/26/19 06:45 NT-Pro-B Natriuret Pep 7299 pg/mL (-299) H 05/26/19 06:45 Total Protein 7.5 g/dL (6.4-8.2) 05/25/19 13:35 Albumin 4.0 g/dL (3.4-5.0) 05/25/19 13:35 TSH 8.42 uIU/mL (0.36-3.74) H 05/26/19 06:45 Free T4 0.98 ng/dL (0.76-1.46) 05/26/19 06:45
[2019-05-29] MEDS: Doxazosin 2 MG TAB PO (20:14)
[2019-05-29] MEDS: Finasteride 5 MG TAB PO (20:14)
[2019-05-29] MEDS: Lidocaine 2% Jelly 11 ML SYR (22:45)
[2019-05-30] VITALS (15 sets, daily range): BP systolic 124–134; BP diastolic 64–83; PULSE 47–94; RESP 18–23; TEMP 36.4–36.6; O2SAT 92–96
[2019-05-30 00:16] LABS: Bilirubin Negative (Negative); Blood Large (Negative); Clarity Clear (Clear); Glucose Negative (Negative); Ketones Negative (Negative); Leukocyte Esterase Negative (Negative); Nitrite Negative (Negative); Specific Gravity 1.015 (1.005-1.025); Urobilinogen 0.2 EU/dL (Up TO 0.2); pH 5.5 (5-8)
[2019-05-30 00:21] LABS: Bacteria Rare HPF (Negative); C & S Indicated? C&S Done As Ordered; Casts Negative LPF (Negative); Crystals Negative HPF (Negative); Epithelial Cells Few HPF (Negative); Mucus Negative (Negative); RBC 20-50 (0-2); WBC 0-2 HPF (0-5)
[2019-05-30] MEDS: Pantoprazole 40 MG TABCR PO (06:31)
[2019-05-30] MEDS: Sucralfate 1 GM TAB PO ×3 (06:31→16:22)
[2019-05-30 06:56] LABS: Absolute Basophil Count 0.02 k/cumm (0.0-0.2); Absolute Eosinophil Count 0.06 k/cumm (0.0-0.7); Absolute Lymphocyte Count 1.13 k/cumm (1.2-3.4); Absolute Monocyte Count 1.54 k/cumm (0.11-0.7); Absolute Neutrophil Count 6.58 k/cumm (1.2-6.7); Basophils % 0.2; Eosinophils % 0.6; HCT 44.4 % (40.0-50.0); HGB 14.9 g/dL (13.5-17.5); Immature Grans % 1.1; Mean Corp. HGB Concentration 33.6 g/dL (32.0-36.0); Mean Corpuscular Volume 86.5 fL (80-95); Mean Platelet Volume 10.8 fL (8.0-11.0); Monocytes % 16.3; Neutrophils % 69.8; Platelet Count 232 x1000/uL (130-400); RBC 5.13 m/cumm (4.50-6.00); RBC Distribution Width 14.2 % (11.8-14.1); White Blood Cell Count 9.43 k/cumm (4.4-10.8)
[2019-05-30 07:00] LABS: Anion Gap 8.2 mmol/L (3-11); BUN 32 mg/dL (7-18); CO2 25.8 mmol/L (21.0-32.0); CREATININE 1.69 mg/dL (0.70-1.30); Calcium 8.5 mg/dL (8.5-10.1); Chloride 100 mmol/L (98-107); Estimated GFR 39.24 (mL/min/1.73m2); Glucose 145 mg/dL (70-100); Magnesium 2.2 mg/dL (1.8-2.4); Potassium 4.5 mmol/L (3.5-5.1); Sodium 134 mmol/L (136-145)
[2019-05-30 07:18] LABS: Diff Comment Agrees w/ Instrument; RBC Morphology Normal
[2019-05-30] MEDS: Furosemide 40 MG TAB PO (08:37)
[2019-05-30] MEDS: Apixaban 2.5 MG TAB PO (08:37)
[2019-05-30] MEDS: PARoxetine 20 MG TAB PO (08:37)
[2019-05-30] MEDS: Potassium Chloride 20 MEQ TABCR 40 MEQ PO (08:37)
[2019-05-30] MEDS: Lactobacillus Acidophilus CAP 1 CAP PO (08:37)
[2019-05-30] MEDS: Tiotropium Bromide-Respimat 10 PUFF INH IH (08:45)
[2019-05-30] MEDS: Acetaminophen 325 MG TAB PO (10:02)
--- NOTE | 2019-05-30 13:03 | DSE_ITS ---
Date of service: 05/30/19 Time of Service: 13:03 DS: Diagnosis Discharge Diagnosis (1) Acute on chronic systolic CHF (congestive heart failure): Status: Acute (2) Mitral regurgitation: Status: Chronic (3) Cardiomyopathy: Status: None (4) Bradycardia: Status: Acute (5) Atrial fibrillation: Status: None (6) Acute on chronic renal failure: Status: Acute (7) BPH w urinary obs/LUTS: Status: Chronic (8) Advance directive discussed with patient: Status: Acute Discharge Plan Disposition Patient Disposition: HOME W/HOME HEALTH SERVICE Condition: Stable Discharge Details Chief Complaint: SOB Clinical Impression: Heart failure Reason For Visit: ACUTE ON CHRONIC CHF Admit Date/Time: 05/25/19 18:32 Admit Provider: Jewel Isaacs Attending Provider: Jewel Isaacs Primary Care Provider: Ronald Irby ED Provider: Garo Mejia Hospital Course Hospital Course: Chief Complaint: Dyspnea HPI: 78 year old man with a prior history of Severe MR, admitted from [facility] Emergency Department on 05/25 with a diagnosis of Acute CHF. Mr. Figueroa has a prior history of Severe MR, CAD, and Cardiomyopathy, as well as CKD, HTN, AFib on AC, BPH, COPD, chronic back pain, GERD with prior peptic ulcer disease, and MAGAN on BiPAP therapy. 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 The patient presented to the ED with complaints of progressive exertional dyspnea and chest pressure, ongoing over a period of approximately one month, and gradually worsening. He was initially seen on 05/21 with similiar complaints, treated with IV Furosemide, and recommended admission but declined by the patient. At the time of presentation to the ED Mr. Figueroa was still awaiting an appointment [place] [facility] [place] of his severe MR. Initially treated with IV Dobutamine and Nitroglycerine, Mr. Figueroa had been maintained solely on a lasix drip and feeling well, and changed to increased dose oral furosemide previously. His weight has decreased nicely since admission, and he has diuresed a total of approximately 8L - both weight and I/O's are slightly less than prior, but essentially stable on current dose of diuretic therapy, and creatinine continues to remain stable. The patient has no complaints this morning - underwent successful void trial. No overnight events reported. Remains afebrile. Hospital Course: (1) Acute on chronic systolic CHF (congestive heart failure): Acute CHF exacerbation in the setting of severe MR. ECHO with LVEF 50%, with findings potentially limited as study was obtained with patient on dobutamine drip at the time of the exam. -Appears euvolemic. Furosemide gtt stopped and oral furosemide started at twice daily (home dosing was daily) 2 days ago. -Current I's and O's, daily weights appear stable but still decreasing. Officially fluid loss appears to be approximately 9 L negative since time of admission. -Plan on slight decrease of lasix at discharge to 40mg Qam, 20mg QPM dosing, with repeat BMP in 3 days. -For potential mitral clipping at [facility] - appointment expedited to 06/02 following official cardiology evaluation. (2) Mitral regurgitation: Severe MR with underlying dilated LV with likely concurrent dysfunction and acute CHF exacerbation, likely qualifies patient for intervention. Has follow- up with [facility] cardiology. - May require ischemic evaluation (although cardiomyopathy likely valvular in nature) prior to intervention. Patient also needs to be evaluated for a Pacer (see below). (3) Cardiomyopathy: Potentially valvular in nature, but would consider ischemic work-up prior to intervention and valve repair. (4) Bradycardia: History of Chronic Afib, with potential Tachy-Ryan syndrome super-imposed as well. Has been persistently bradycardic, albeit asymptomatic, despite having BB therapy on hold. HR will rise with activity, mostly in the 110's as patient ambulated in the halls today, but also transiently higher. HR recovers well with rest, then decreases into the 40-50's. Also with frequent PVCs, multifocal PVCs that worsen with ambulation. - Continue to hold BB, as bradycardia is limiting. Also with significant Patient would benefit from Beta Blockers ultimately, but current HRs mostly in the 40- 50's. May benefit from ultimate pacer placement. Discussed case with Cardiology at [facility] - full agreement with above plan, and also agree with discharge (as opposed to transfer), with return to [facility] in 2 days for planned admission and evaluation/procedure. (5) Atrial fibrillation: Continue anticoagulation with Apixaban. BB on hold as above. (6) Acute on chronic renal failure: Creatinine is improving and now appears at baseline despite change in diuretic therapy as above. Renally dose medications when needed, and avoid nephrotoxins. (7) BPH w urinary obs/LUTS: Doxazosin initially on hold due to hypotension - resumed at half dose prior to successful void trial. Will titrate to full dose at time of discharge. (8) Advance directive discussed with patient: Full code. (9) Disposition: Discharge home today, with appointment with cardiology confirmed at 7:30 am on 06/02 for an expedited evaluation. Will also benefit from Home Health for nursing to evaluate volume status, vitals, and labdraw. Home Meds and New Rx's Prescriptions: New furosemide 20 mg tablet 20 mg PO BID Qty: 60 RF: 0 potassium chloride 20 mEq tablet extended release 20 meq PO BID Qty: 60 RF: 0 Continued hemp PO DAILY RF: 0 coenzyme [id number] [Co Q-10 (with Vit E)] 1 EACH capsule 1 tab PO DAILY RF: 0 Lactobacillus acidophilus 1 EACH tablet 1 ea PO DAILY Qty: 1 RF: 0 doxazosin 4 mg tablet 4 mg PO HS Qty: 90 RF: 4 paroxetine HCl [Paxil] 20 mg tablet 20 mg PO DAILY Qty: 90 RF: 4 Eliquis 5 mg tablet 5 mg PO BID Qty: 180 RF: 4 Spiriva with HandiHaler 18 mcg capsule, w/inhalation device 1 cap Inhalation DAILY Qty: 3 RF: 4 finasteride 5 mg tablet 5 mg PO HS Qty: 90 RF: 4 pantoprazole 40 mg tablet,delayed release (DR/EC) 40 mg PO BID Qty: 180 RF: 3 sucralfate 1 gram tablet 1 gm PO TID Qty: 270 RF: 3 Discontinued furosemide 40 mg tablet 20 mg PO DAILY RF: 0 potassium chloride 20 mEq tablet,ER particles/crystals 20 meq PO DAILY RF: 0 metoprolol succinate [Toprol XL] 50 mg tablet extended release 24 hr 25 mg PO DAILY Qty: 45 RF: 4 Discharge Instructions Activity:: No strenuous activity Equipment/Supplies:: No Equipment Needed Diet:: Low Sodium DS: Summary Status at Discharge Functional status at discharge: independent ambulation Overall status at discharge: patient is back to baseline Mental Status: mental status grossly normal Speech and Movement: speech and movement normal Mood: congruent mood Affect: normal affect Exam Narrative Exam Narrative: General: Patient appears comfortable, AAOX3, NAD Neck: Supple CV: Regular, nontachycardic, 3/6 LLSB murmur appreciated. Pulmonary: Clear to auscultation bilaterally, no crackles, wheezing, or rhonchi Abdomen: + Bowel Sounds, soft, nontender, nondistended Vascular: No lower extremity edema Psych: Normal mood and affect. Psych Mental Status: mental status grossly normal Speech and Movement: speech and movement normal Mood: congruent mood Affect: normal affect DS: Data Vitals/I&O Vitals and I&O: Vital Signs Temperature 36.4 C L 05/30/19 08:42 Temperature Source Temporal Artery Scan 05/30/19 08:42 Pulse 76 05/30/19 10:01 Pulse 79 05/30/19 10:01 Respiratory Rate 18 05/30/19 10:01 Respiratory Effort 05/30/19 09:41 Respiratory Depth Normal 05/30/19 09:41 Respiratory Pattern Normal 05/30/19 09:41 Blood Pressure 124/75 05/30/19 10:01 Blood Pressure Mean 87 05/30/19 10:01 Blood Pressure Position Supine 05/30/19 08:42 Pulse Oximetry 93 L 05/30/19 10:01 Oxygen Delivery Method Room Air 05/30/19 08:42 Oxygen Flow Rate 0 05/30/19 08:42 Fraction of Inspired Oxygen (FIO2) 21 05/30/19 09:30 Pain Level 6 05/30/19 11:02 Comment 05/26/19 11:05 Intake & Output 05/29/19 05/30/19 05/30/19 23:59 11:59 23:59 Intake Total 580 / 840 600 / 600 Output Total 1025 / 1725 425 / 425 Balance -445 / -885 175 / 175 Weight 88.8 kg Intake: Oral 580 / 820 600 / 600 Output: Urine 1025 / 1725 425 / 425 Other: Urine Color Yellow Light Sofia Urine Appearance Cloudy Clear Sediment Urine Odor None Comment urinal Clear yellow with mucous threads. Voiding Methods Urinal Data Completed and Pending Completed studies during hospitalization [Text1]: Exam(s) 05/21/2019 a RAD:XR portable chest AP EXAM: XR PORTABLE CHEST AP CLINICAL HISTORY: shortness of breath TECHNIQUE: Portable AP view of the chest was obtained. COMPARISON: XR CHEST 2V PA LATERAL from 03/07/2019 FINDINGS: The examination is compared with PA and lateral chest of 03/07/2019. Heart is enlarged. There may be increased cardiomegaly in comparison with the prior PA chest. There is increased intra pulmonary interstitial prominence bilaterally, question mild CHF. No gross consolidation seen. IMPRESSION: Question interval development of mild CHF. Appropriate follow-up films requested. -------- Exam(s) 05/25/2019 a RAD:XR chest 2V PA & lateral EXAM: XR CHEST 2V PA LATERAL INDICATION: SOB, Mitral regurgitation. COMPARISON: XR PORTABLE CHEST AP from 05/21/2019 TECHNIQUE: 2D digital imaging was performed. FINDINGS: Cardiomegaly is demonstrated. There are increased interstitial markings in the lungs. The hilar structures, mediastinum and tracheal air column appear intact. IMPRESSION: Increased interstitial markings are demonstrated in the lungs and could be on the basis of mild congestive failure. No localized pulmonary infiltrate is seen. ------ Exam(s) 05/26/2019 a US:US echocardiogram APPROVED REPORT Conclusion Left Ventricle : Left ventricle is dilated (LVDd 6cm, LVDs 4.6cm). Left ventricular systolic function is moderately decreased. There is normal left ventricular wall thickness. Regional wall motion is grossly normal. LVEF is 40- 45%. Right Ventricle : Right ventricle is dilated. Right ventricle is mildly hypokinetic. Atria : Left atrium is severely dilated. Right atrium is severely dilated. Aortic Valve : The aortic valve is normal in structure. There is no aortic va lvular stenosis. Mild aortic regurgitation. Mitral Valve : Mitral valve leaflets are thickened. There is no evidence of prolapse. Mitral regurgitation is severe with posteriorly directed jet. Tricuspid Valve : The tricuspid valve is normal in structure. Moderate tricuspid regurgitation. TR V-max 4.23 m/s.TR peak gradient 71.5mmHG. RVSP estimated to be 80-85 mmHg Pulmonic Valve : Pulmonic valve is not well visualized. Great Vessels : Ascending aorta is mildly enlarged (4 cm). The IVC is mildly enlarged with less than 50% collapse suggesting elevated right atrial pressures. Compared to echocardiogram dated 12/10/2018 estimated RVSP is now severely elevated. There have been no interval changes in valvular or ventricular function EXAM: Comprehensive 2D, Doppler, and color-flow Echocardiogram Indications: CHF valvular heart disease Labs on day of discharge: Labs from last 24 hours 05/30/19 05/30/1905/29/19 06:15 06:15 22:45 WBC 9.43 RBC 5.13 Hgb 14.9 Hct 44.4 MCV 86.5 MCH 29.0 MCHC 33.6 RDW 14.2 H Plt Count 232 MPV 10.8 Immature Gran % 1.1 Neutrophils % 69.8 Lymphocytes % 12.0 Monocytes % 16.3 Eosinophils % 0.6 Basophils % 0.2 Absolute Neutrophils 6.58 Absolute Lymphocytes 1.13 L Absolute Monocytes 1.54 H Absolute Eosinophils 0.06 Absolute Basophils 0.02 Differential Comment Agrees w/ instrument RBC Morphology Normal Sodium 134 L Potassium 4.5 Chloride 100 Carbon Dioxide 25.8 Anion Gap 8.2 BUN 32 H Creatinine 1.69 H Estimated GFR/1.73 m2 39.24 Glucose 145 H Calcium 8.5 Magnesium 2.2 Urine Color Yellow Urine Clarity Clear Urine pH 5.5 Ur Specific [place] 1.015 Urine Protein Negative Urine Ketones Negative Urine Blood Large H Urine Nitrite Negative Urine Bilirubin Negative Urine Urobilinogen 0.2 Ur Leukocyte Esterase Negative Urine RBC 20-50 H Urine WBC 0-2 Ur Epithelial Cells Few Urine Crystals Negative Urine Bacteria Rare Urine Casts Negative Urine Mucus Negative Ur Culture Indicated? C&s done as ordered Urine Glucose Negative 05/29/19 22:45 Urine - Cath Straight Urine Culture - Pending Preliminary micro results at discharge 05/29/19 22:45 Urine Culture - Pending Urine - Cath Straight [facility] Medical History Anticoagulated (Acute) Anticoagulated on warfarin (Inactive) A-fib; INR goal 2-3 Anxiety Atrial fibrillation BPH (benign prostatic hyperplasia) CAD (coronary artery disease) Cardiomyopathy COPD (chronic obstructive pulmonary disease) Epigastric pain Essential hypertension Former smoker History of left heart catheterization (Inactive) History of tobacco use (Inactive) Internal hemorrhoids MO (myocardial infarction) Mitral regurgitation (Chronic) Mitral valve regurgitation Oral lesion MAGAN (obstructive sleep apnea) MAGAN treated with BiPAP Rectal bleeding 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 Sheridan History of colonoscopy (Chronic 04/13/18) Dr Lundberg History of esophagogastroduodenoscopy (EGD) (Chronic 04/13/18) Dr Lundberg History of hemorrhoidectomy (Chronic 05/11/18) EUA, banding, Dr Lundberg History of partial thyroidectomy (Inactive) left heart cadiac cath (~1982) Repair of inguinal hernia x 2 Status post arthroscopy of shoulder (Inactive) Status post inguinal hernia repair (Inactive) Thyroid right lobectomy 2005 Family History Mother No problems noted. Father No problems noted. Brother No problems noted. Social History Smoking/Tobacco Use Status: Former Tobacco Use Quit Date: 08/03/85 Alcohol Intake: current Alcohol Intake frequency: a few times a week Alcohol type: beer Drug use: Never Substance use type: does not use Aleyda/Catholic: No preference Special aleyda needs: No Do you feel safe at home: Yes Do you feel safe in your relationship?: Yes
--- NOTE | 2019-05-30 14:41 | PDOC.HHF2F_ITS ---
Home Health Certification Home Health Certification: 1. Encounter Date and Reason I certify that TEMO FRAIRE was seen by Andrae Bautista on 05/30/19 and that I had a [id number] encounter with this patient that meets the physician face to face encounter requirements. 2. Clinical Findings Supporting Skilled Need and Homebound Status I certify that home health services are medically necessary, include either intermittent correction and/or physical/speech therapy, and that this patient is homebound in that absences from the home require considerable and taxing effort and are infrequent or of short duration, or are attributable to the need to receive medical care. [X] (a) Attached documentation from encounter provides clinical findings supporting skilled need and homebound status (including what assistance patient requires to leave the home). The encounter with the patient was in whole, or in part, for the following medical condition, which is the primary reason for home health care: ACUTE ON CHRONIC CHF Intermediate: Weight and volume status following hospitalization for CHF. Physical Therapy: Speech Therapy: Homebound: 3. Certification and Authentication I certify that I composed the above information based on my clinical judgement relating to this patient's medical condition and, if applicable, clinical findings communicated to me by the NPP or inpatient physician who performed the Home Health Referral. All further orders will be obtained through Ronald Irby (Community Based Physician - PCP)
--- NOTE | 2019-05-30 16:03 | CMDISCH_ITS ---
- If Service Date Differs Date of service: 05/30/19 Time of Service: 16:03 LACE Index Scoring Tool - Questions: Length of Stay (in days): 4 - 6 Acuity (Admit via E.D.?): Yes Comorbidities: Previous M.I., Congestive Heart Failure, Chronic Pulmonary Disease E.D. Visits: 4 - Answers: Total Score: 16 Risk of Readmission: High Risk Care Management Discharge Reason for Hospitalization: Acute on chronic systolic CHF Discharge Plan: Jovanni will be discharged home with new home health nursing. He is scheduled to be seen at [facility] on 06/02/19. has arranged transportation to [facility] through [facility]. He will be picked up at 0530 for a 7:30 am appointment. He will also follow up with his PCP and discharge plan of care.Jovanni will transport with his via private vehicle. Patient/Family Education Needs: Discharge plan, limitations, follow up care, Ask Me Three.
== END 2019-05-30 17:30 | disposition home health service (06) | DRG 292 ==
LOC: ER 20:40 → ICU 21:29
PROVIDERS: Internal Medicine; Admitting Provider Internal Medicine; Emergency Provider Emergency Medicine; PCP Family Medicine; Visit Provider Internal Medicine
DX: I48.11 Longstanding persistent atrial fibrillation (principal); I50.23 Acute on chronic systolic (congestive) heart failure; I42.9 Cardiomyopathy, unspecified; N17.9 Acute kidney failure, unspecified; I13.0 Hypertensive heart and chronic kidney disease with heart failure and stage 1 through stage 4 chronic kidney disease, or unspecified chronic kidney disease; I05.9 Rheumatic mitral valve disease, unspecified; I49.5 Sick sinus syndrome; N18.9 Chronic kidney disease, unspecified; N40.1 Benign prostatic hyperplasia with lower urinary tract symptoms; R33.8 Other retention of urine; Z79.01 Long term (current) use of anticoagulants; J44.9 Chronic obstructive pulmonary disease, unspecified; K21.9 Gastro-esophageal reflux disease without esophagitis; G47.33 Obstructive sleep apnea (adult) (pediatric); M47.817 Spondylosis without myelopathy or radiculopathy, lumbosacral region
CPT/HCPCS: 36415; 80048; 80053; 93005; 93306; 94640; 99223; 99232; 99233; 99239; 99255; 99285; 71046; 81003; 81015; 83735; 83880; 84439; 84443; 84484; 85025; 85610; 85730; 87086; 93010; 94660; 99284; J1250; J1940; J1941

== ENCOUNTER → 2019-05-26 07:38 | Outpatient (BNVA) | payer MEDICARE, OTHER, SELFPAY | PROVIDERS: PCP Family Medicine; Referring Provider Family Medicine; Visit Provider Internal Medicine Cardiovascular Disease | DX: R69 Illness, unspecified (principal) ==

== ENCOUNTER 2019-08-26 00:19 | Outpatient (CLI) | payer MEDICARE, OTHER, SELFPAY ==
[2019-08-26 11:33] LABS: Anion Gap 7.4 mmol/L (3-11); BUN 24 mg/dL (7-18); CO2 30.6 mmol/L (21.0-32.0); CREATININE 1.62 mg/dL (0.70-1.30); Calcium 8.9 mg/dL (8.5-10.1); Chloride 104 mmol/L (98-107); Glucose 126 mg/dL (74-106); Potassium 4.5 mmol/L (3.5-5.1); Sodium 142 mmol/L (136-145)
== END 2019-08-26 00:39 ==
PROVIDERS: PCP Family Medicine; Visit Provider Family Medicine
DX: I10 Essential (primary) hypertension (principal)
CPT/HCPCS: 36415; 80048

== ENCOUNTER → 2019-08-30 12:28 | Outpatient (BNVA) | payer MEDICARE, OTHER, SELFPAY | PROVIDERS: PCP Family Medicine; Referring Provider Family Medicine; Visit Provider Internal Medicine Cardiovascular Disease | DX: I25.10 Atherosclerotic heart disease of native coronary artery without angina pectoris (principal); I34.0 Nonrheumatic mitral (valve) insufficiency; J44.9 Chronic obstructive pulmonary disease, unspecified; Z87.891 Personal history of nicotine dependence; I48.20 Chronic atrial fibrillation, unspecified; I42.9 Cardiomyopathy, unspecified | CPT/HCPCS: 99214 ==

== ENCOUNTER 2019-12-01 01:13 | Outpatient (CLI) | payer MEDICARE, OTHER, SELFPAY ==
[2019-12-01 14:46] LABS: Hemoglobin A1C 6.6 % (3.8-5.6)
== END 2019-12-01 01:33 ==
PROVIDERS: PCP Family Medicine; Visit Provider Family Medicine
DX: E11.9 Type 2 diabetes mellitus without complications (principal)
CPT/HCPCS: 36415; 83036

== ENCOUNTER 2020-02-15 00:45 | Outpatient (CLI) | payer MEDICARE, OTHER, SELFPAY ==
--- NOTE | 2020-02-15 10:00 | DI.US_ITS ---
APPROVED REPORT EXAM: Comprehensive 2D, Doppler, and color-flow Echocardiogram Patient Location: Out-Patient Still Pump Operator: Virginia Gonsalez RDCS (AE) Indications: Mitral Regurgitation Conclusion Normal left ventricular chamber size and wall thickness. Estimated ejection fraction is 55 to 60%. There are no segmental wall motion abnormalities The left atrium is moderately dilated. The right atrium is mildly dilated. Right ventricle is normal in size and systolic function Aortic valve is sclerotic and trileaflet. There is trace aortic regurgitation. There is no aortic s tenosis Structurally normal mitral valve. Moderate mitral regurgitation Structurally normal tricuspid valve. Mild tricuspid regurgitation. Estimated right ventricular syst olic pressure is 25 mmHg Pulmonic valve is structurally normal with trace regurgitation Wall motion Left Ventricle The left ventricle is normal size. The left ventricular systolic function is normal. The left ventric ular ejection fraction is within the normal range. There is normal left ventricular wall thickness. T here is normal LV segmental wall motion. There is no ventricular septal defect visualized. LVEF is 55 -60%. Right Ventricle The right ventricle is normal size. The right ventricular systolic function is normal. The RVSP is 27 .6mmHg. Atria Left atrium is moderately dilated. Right atrium is mildly dilated. The interatrial septum is intact w ith no evidence for an atrial septal defect. Aortic Valve The Aortic valve is sclerotic. Aortic valve is thickened but has adequate excursion. There is no aort ic valvular stenosis. Trace aortic regurgitation. Mitral Valve The mitral valve is normal in structure. No evidence of mitral valve stenosis. Moderate mitral regurg itation. Tricuspid Valve The tricuspid valve is normal in structure. There is no tricuspid valve stenosis. Mild tricuspid regu rgitation. Pulmonic Valve The pulmonary valve is normal in structure. There is no pulmonic valvular stenosis. There is no pulmo robert valvular regurgitation. Great Vessels The aortic root is normal in size. The ascending aorta is severely dilated. IVC is normal in size and collapses >50% with inspiration. Pericardium There is no pericardial effusion. 2D Dimensions IVSD d PLAX 0.92 cm M: 0.6-1.2 LV Vol A2C d MOD 138.7 mL LVPW d PLAX 0.99 cm M: 0.6 - 1.2 LV Vol A4C d MOD 125.8 mL LVID d PLAX 5.03 cm M: 4.2 - 5.8 LA vol/ BSA A2C s A-L 77.0 mL/m2 LVDs 3.45 cm M: 2.5 - 4.0 LA vol/ BSA A4C s A-L 74.4 mL/m2 Ao Root d 3.26 cm M: 3.1 - 3.7 LA Vol/ BSA Biplane s A-L 77.4 mL/m2 RA Area A4C 25.94 cm2 LA Area A4C s MOD 37.85 cm2 RA Vol/ BSA A4C s A-L 40.8 mL/m2 LA Area A2C s MOD 37.65 cm2 Ao Asc Diam d 4.20 cm M: 2.6 - 3.4 LV EF A4C MOD 59.4 % LV EF Teichholz 58.1 % LV EF A2C MOD 57.5 % LVEF (Fountain's) 56.75 % M: 52 - 72 LV EF Biplane MOD 56.7 % LV Volume 98.74 mL M: 62 - 150 SV 76.02 mL LV Volume Index 46.79 mL/m2 M: 34 - 74 SV Index 36.05 mL/m2 LV Vol Biplane MOD 134.0 mL FS 30.75 % M-Mode TAPSE 2.55 cm (M/F) >1.7 LV Diastology MV E' lateral 0.054 (>0.1 m/s) MV E Vmax 0.81 (0.4-1.3 m/s) LV E/e LAT 15.10 (<14) MV E/E' lateral 15.11 Aortic Valve LVOT Area 3.72 cm2 AoV Area Vmax 2.49 cm2 LVOT Vmax 0.79 m/s AoV Area/ BSA (Vmax) 1.18 cm2/m2 LVOT Mean Eder. 0.51 m/s ADELA Mean Eder. 2.38 cm2 LVOT Peak Grad 2.5 mmHg ADELA Mean Eder. Index 1.13 cm2/m2 LVOT Mean Grad 1.2 mmHg LVOT VTI 0.132 m LVOT Diam s 2.15 cm AoV Vmax 1.18 m/s Velocity Ratio 0.66 AoV Mean Eder. 0.80 m/s AoV Peak Grad 5.5 mmHg LVOT SV 49.16 mL AoV Mean Grad 2.9 mmHg AoV VTI 0.206 m AoV Area VTI 2.39 cm2 AoV Area/ BSA (VTI) 1.13 cm/m2 Mitral Valve MV DT 252 (160-240 msec) MR Vmax 4.50 m/s MV PHT 73 msec MR VTI 1.387 m MV Area PHT 3.01 cm2 MR Peak Grad 80.9 mmHg MV VTI 0.244 m MR Mean Grad 50.1 mmHg MV Area VTI 2.01 (4.0-6.0 cm2) MR PISA Radius 0.49 cm MR EROA 0.12 cm2 MR Aliasing Velocity 0.35 m/s MR PISA 1.51 cm2 Pulmonary Valve PV Vmax 0.81 (0.5-1.5 m/s) RVOT Peak Gr. 1.71 mmHg PV Peak Grad 2.7 mmHg RVOT Mean Gr. 0.75 mmHg PV Mean Grad 1.4 mmHg RVOT VTI 0.114 m PV VTI 0.129 m RVOT Vmax 0.65 m/s Tricuspid Valve TR Peak Grad 24.6 mmHg TR Vmax 2.48 m/s RA Pressure 3.00 mmHg RVSP (TR) 27.6 mmHg
== END 2020-02-15 01:05 ==
PROVIDERS: PCP Family Medicine; Visit Provider Internal Medicine Cardiovascular Disease
DX: I08.1 Rheumatic disorders of both mitral and tricuspid valves
CPT/HCPCS: 93306

== ENCOUNTER → 2020-02-21 10:35 | Outpatient (BNVA) | payer MEDICARE, OTHER, SELFPAY | PROVIDERS: PCP Family Medicine; Referring Provider Family Medicine; Visit Provider Internal Medicine Cardiovascular Disease | DX: I34.0 Nonrheumatic mitral (valve) insufficiency (principal); I48.20 Chronic atrial fibrillation, unspecified; I42.9 Cardiomyopathy, unspecified; J44.9 Chronic obstructive pulmonary disease, unspecified; Z87.891 Personal history of nicotine dependence; I10 Essential (primary) hypertension | CPT/HCPCS: 99214 ==

== ENCOUNTER 2020-03-26 02:47 | Outpatient (CLI) | payer MEDICARE, OTHER, SELFPAY ==
[2020-03-26 11:50] LABS: Anion Gap 6.2 mmol/L (3-11); BUN 25 mg/dL (7-18); CO2 28.8 mmol/L (21.0-32.0); CREATININE 2.08 mg/dL (0.70-1.30); Calcium 8.7 mg/dL (8.5-10.1); Chloride 101 mmol/L (98-107); Glucose 151 mg/dL (74-106); Potassium 5.1 mmol/L (3.5-5.1); Sodium 136 mmol/L (136-145)
== END 2020-03-26 03:07 ==
PROVIDERS: PCP Nurse Practitioner Family; Visit Provider Family Medicine
DX: I10 Essential (primary) hypertension (principal)
CPT/HCPCS: 36415; 80048

== ENCOUNTER → 2020-04-02 11:10 | Outpatient (BNVA) | payer MEDICARE, OTHER, SELFPAY | PROVIDERS: PCP Nurse Practitioner Family; Referring Provider Nurse Practitioner Family; Visit Provider Surgery | DX: K64.9 Unspecified hemorrhoids (principal); Z79.01 Long term (current) use of anticoagulants; I48.91 Unspecified atrial fibrillation; I10 Essential (primary) hypertension; J44.9 Chronic obstructive pulmonary disease, unspecified; Z87.891 Personal history of nicotine dependence | CPT/HCPCS: 99214 ==

== ENCOUNTER 2020-04-17 07:10 | Day surgery (SDC) | payer MEDICARE, OTHER, SELFPAY ==
[2020-04-17 07:15] VITALS: BP 135/86; PULSE 75; RESP 16; TEMP 35.7; O2SAT 99
[2020-04-17] MEDS: Lactated Ringers 1,000 ML 80 ML IV (07:55)
--- NOTE | 2020-04-17 08:39 | W.PM.DSUDISC ---
Discharge Plan Disposition Patient Disposition: HOME Condition: Good Discharge Details Reason For Visit: Colonoscopy Attending Provider: Janelle Xiao Primary Care Provider: Ruby Godinez Home Meds and New Rx's Prescriptions: Continued Excedrin Migraine 250-250-65 mg tablet 1 tab PO ONCE PRNRF: 0 BiPAP miscellaneous RF: 0 spironolactone 25 mg tablet 25 mg PO DAILY Qty: 90 RF: 3 furosemide 20 mg tablet 20 mg PO DAILY RF: 0 lisinopril 5 mg tablet 2.5 mg PO DAILY RF: 0 metoprolol succinate 50 mg tablet extended release 24 hr 25 mg PO DAILY RF: 0 meclizine 25 mg tablet 25 mg PO TID PRNRF: 0 hemp PO DAILY RF: 0 finasteride 5 mg tablet 5 mg PO HS Qty: 90 RF: 4 paroxetine HCl [Paxil] 20 mg tablet 20 mg PO DAILY Qty: 90 RF: 4 Spiriva with HandiHaler 18 mcg capsule, w/inhalation device 1 cap Inhalation DAILY Qty: 3 RF: 4 Eliquis 5 mg tablet 5 mg PO BID Qty: 180 RF: 4 Lactobacillus acidophilus 1 EACH tablet 1 ea PO DAILY Qty: 1 RF: 0 doxazosin 4 mg tablet 4 mg PO HS Qty: 90 RF: 4 potassium chloride 20 mEq tablet extended release 20 meq PO BID Qty: 180 RF: 3 pantoprazole 40 mg tablet,delayed release (DR/EC) 40 mg PO DAILY Qty: 90 RF: 3 sucralfate 1 gram tablet 1 g PO QAC Qty: 270 RF: 4 Discharge Instructions Additional Instructions: Findings: One tiny polyp was removed. My office will contact you with biopsy results. The hemorrhoids have an internal and external component so could not be banded. Banding an external hemorrhoid is too painful. Please call if you develop: fevers >101.5 Nausea or Vomiting Abdominal pain that is not transient DAY SURGERY UNIT POST COLONOSCOPY INSTRUCTIONS 1. Because there will be medication in your system for the next 24 hours, you may feel a little sleepy. Your coordination will be affected. Therefore: a. Do not drive or operate dangerous equipment for 24 hours. b. Do not drink alcohol beverages for 24 hours (not even beer). c. Plan to go home and rest for the day. 2. Generally there are no restrictions on your activity after a day or so has gone by, but you may feel a bit fatigued for a few days. 3 After you arrive home you may have a light meal and return to a normal diet as you can tolerate it without feeling sick to your stomach. 4. After surgery, you may feel pain or discomfort. This should be only transient, but if it persists please contact your doctor. 5. If there are any questions regarding the findings of your procedure, please feel free to contact your doctor. 6. If you are unable to contact your doctor with a problem, contact the hospital at [phone]. 7. Continue all your regular medications unless directed otherwise. I understand the above instructions and have no questions. Signature of Patient or Responsible Adult Escort Date/Time Name of Responsible Adult Escort Signature of Nurse Date/Time Activity:: Activity as Tolerated Diet:: As Tolerated Discharge Orders Discharge Orders: Discharge Order (Routine); Ordered 04/17/20 Ordered By: Janelle Xiao DS: Diagnosis Discharge Diagnosis (1) Polyp of colon: Status: Acute (2) Diverticulosis of colon without diverticulitis: Status: Acute (3) Hemorrhoids: Status: Chronic
--- NOTE | 2020-04-17 08:40 | W.COLOREPORT ---
Colonoscopy Report Date of procedure: 04/17/20 Pre-op diagnosis general: Rectal bleeding Post-op diagnosis procedure note: other (Ascending colon polyp, mild diverticulosis, mixed hemorrhoids) Procedure: Colonoscopy with cold forceps polypectomy Surgeon: Janelle Xiao Anesthesia proc note operative: MAC Indications: This 79 year old complains of trouble emptying. He needs to sit on the toilet for some time and has prolapsing and bleeding hemorrhoids. Procedure Description: The patient was placed in the left Suarez position. Propofol was titrated to sedation. Digital rectal examination revealed some external hemorrhoids. The scope was advanced to the cecum without difficulty. The ileocecal valve and appendiceal orifice were clearly identified. The prep was good. The scope was slowly withdrawn over the course of greater than 6 minutes. A diminuitive polyp was removed from the ascending colon with the cold forceps. No abnormalities were seen in the ascending, transverse, descending or sigmoid colon. I was not able to retroflex in the rectum due to the shape. Random biopsies were performed. There was an area of scar from prior hemorrhoid banding. Anoscopy was done and showed mixed internal and external hemorrhoids. There was a prominent bundle in the left lateral position that I banded but then removed the band because it looked below the dentate line. The patient tolerated the procedure well and was stable to recovery. I discussed the findings with him postop. He was advised not to sit on the toilet for a prolonged period. He should take a daily fiber supplement to hopefully help with firming the stool/emptying. He can use Prep H as needed. Use moistened wipes to avoid bleeding. The hemorrhoids could be removed with surgery but I am not sure this would help emptying. If the problem is still bothersome, we could consider referral to colo-rectal surgery for manometry or defacography.
--- NOTE | 2020-04-17 08:57 | BOWEL_PTH ---
PATIENT: Jovanni Figueroa LOC: [facility] U#:[id number] AGE/SX: 79/M ROOM: RE04/17/[address]: Janelle Xiao MD : [id number] BED: DIS: 04/17/2020 SPEC #: [id number] RECD: 04/17/20 12:37 STATUS: JARVIS REQ #: [id number] PRICE: 04/17/20 08:[address]: Janelle Xiao DEPT: Surgical Specimen RECD BY: Leatha Campbell ENTERED: 04/17/20 12:38 SP TYPE: Bowel OTHR DR: MARK Griffin Tissues: 1 - BIOPSY BOWEL 2 - BIOPSY BOWEL Procedures: GROSS AND MICRO LEVEL 4 Comments: [id number]
[2020-04-17 09:55] VITALS: BP 120/62; PULSE 67; RESP 17; TEMP 36.4; O2SAT 99
== END 2020-04-17 10:12 | disposition home or self-care (01) ==
PROVIDERS: PCP Nurse Practitioner Family; Visit Provider Surgery
PROC: 0DJD8ZZ Inspection of Lower Intestinal Tract, Via Natural or Artificial Opening Endoscopic (ICD-10-PCS; CPT 45378; principal; 2020-04-17 08:15)
DX: K62.5 Hemorrhage of anus and rectum (principal); D12.2 Benign neoplasm of ascending colon; D17.5 Benign lipomatous neoplasm of intra-abdominal organs; K57.30 Diverticulosis of large intestine without perforation or abscess without bleeding; K64.8 Other hemorrhoids
CPT/HCPCS: 45398; 45380; 88305

== ENCOUNTER 2020-07-06 21:26 | Outpatient (REF) | payer MEDICARE, OTHER, SELFPAY ==
[2020-07-06 21:18] LABS: Bilirubin Negative (Negative); Blood Trace-intact (Negative); Clarity Clear (Clear); Glucose Negative (Negative); Ketones Negative (Negative); Leukocyte Esterase Negative (Negative); Nitrite Negative (Negative); Specific Gravity >= 1.030 (1.005-1.025); Urobilinogen 0.2 EU/dL (Up TO 0.2); pH 5.5 (5-8)
[2020-07-06 21:23] LABS: Bacteria Few HPF (Negative); C & S Indicated? No; Casts Negative LPF (Negative); Crystals Negative HPF (Negative); Epithelial Cells Few HPF (Negative); Mucus Trace (Negative); WBC 0-2 HPF (0-5)
[2020-07-06 21:45] LABS: Microalb ug/mg Crea 5.1 ug/mg Cr
== END 2020-07-06 21:46 ==
LOC: LBN 21:26
PROVIDERS: PCP Nurse Practitioner Family; Visit Provider Nurse Practitioner Family
DX: N18.9 Chronic kidney disease, unspecified (principal)
CPT/HCPCS: 81003; 81015; 82043; 82570

== ENCOUNTER 2020-08-20 01:07 | Outpatient (CLI) | payer MEDICARE, OTHER, SELFPAY ==
--- NOTE | 2020-08-20 08:15 | DI.US_ITS ---
APPROVED REPORT EXAM: Comprehensive 2D, Doppler, and color-flow Echocardiogram Patient Location: Out-Patient Thermal Molder: Virginia Gonsalez RDCS (AE) Indications: Mitral Regurgitation, Atrial Fibrillation Other Information Study Quality: Adequate Conclusion Normal left ventricular wall thickness and chamber size. Estimated ejection fraction is 55 to 60%. Wa ll motion is normal Normal right ventricular size and systolic function The left atrium is severely dilated. The right atrium is mildly dilated The aortic valve is trileaflet and sclerotic with trace regurgitation Structurally normal mitral valve with moderate to severe regurgitation Structurally normal tricuspid valve with mild regurgitation, normal estimated right ventricular systo lic pressure Normal pulmonic valve with trace regurgitation Dilated ascending aorta measuring 4.33 cm Wall motion Left Ventricle The left ventricle is normal size. The left ventricular systolic function is normal. The left ventric ular ejection fraction is within the normal range. There is normal left ventricular wall thickness. T here is normal LV segmental wall motion. There is no ventricular septal defect visualized. LVEF is 55 -60%. Right Ventricle The right ventricle is normal size. The right ventricular systolic function is normal. The RVSP is 27 .4mmHg. Atria Left atrium is severely dilated. Right atrium is mildly dilated. The interatrial septum is intact wit h no evidence for an atrial septal defect. Aortic Valve The Aortic valve is sclerotic. Aortic valve is trileaflet. There is no aortic valvular stenosis. Trac e aortic regurgitation. Mitral Valve The mitral valve is normal in structure. No evidence of mitral valve stenosis. Moderate to severe elizabeth ral regurgitation Tricuspid Valve The tricuspid valve is normal in structure. There is no tricuspid valve stenosis. Mild tricuspid regu rgitation. Pulmonic Valve The pulmonary valve is normal in structure. There is no pulmonic valvular stenosis. Trace pulmonic re gurgitation. Great Vessels The aortic root is normal in size. The ascending aorta is moderately dilated.4.33 cm Aortic arch is n ormal in caliber. IVC is normal in size and collapses >50% with inspiration. Pericardium There is no pericardial effusion. 2D Dimensions IVSD d PLAX 0.90 cm M: 0.6-1.2 LV Vol A2C d MOD 98.7 mL LVPW d PLAX 0.93 cm M: 0.6 - 1.2 LV Vol A4C d MOD 123.8 mL LVID d PLAX 5.00 cm M: 4.2 - 5.8 LA vol/ BSA A2C s A-L 73.1 mL/m2 LVDs 3.35 cm M: 2.5 - 4.0 LA vol/ BSA A4C s A-L 70.6 mL/m2 Ao Root d 3.31 cm M: 3.1 - 3.7 LA Vol/ BSA Biplane s A-L 74.9 mL/m2 RA Area A4C 19.73 cm2 LA Area A4C s MOD 35.25 cm2 RA Vol/ BSA A4C s A-L 27.3 mL/m2 LA Area A2C s MOD 37.39 cm2 Ao Asc Diam d 4.33 cm M: 2.6 - 3.4 LV EF A4C MOD 59.4 % LV EF Teichholz 61.0 % LV EF A2C MOD 57.6 % LVEF (Fountain's) 57.19 % M: 52 - 72 LV EF Biplane MOD 57.2 % LV Volume 81.04 mL M: 62 - 150 SV 62.76 mL LV Volume Index 38.77 mL/m2 M: 34 - 74 SV Index 29.94 mL/m2 LV Vol Biplane MOD 109.7 mL FS 32.80 % M-Mode TAPSE 1.77 cm (M/F) >1.7 LV Diastology MV E' medial 0.058 (>0.07 m/s) E/A Ratio 3.9 LV E/e MED 13.40 (<14) MV E Vmax 0.78 (0.4-1.3 m/s) MV E' lateral 0.106 (>0.1 m/s) MV A Vmax 0.20 (0.4-1.3 m/s) LV E/e LAT 7.30 (<14) MV E/A Ratio 3.17 MV E/E' medial 13.44 MV E/E' lateral 7.34 Aortic Valve LVOT Area 3.46 cm2 AoV Area Vmax 2.29 cm2 LVOT Vmax 0.81 m/s AoV Area/ BSA (Vmax) 1.09 cm2/m2 LVOT Mean Eder. 0.50 m/s ADELA Mean Eder. 2.07 cm2 LVOT Peak Grad 2.7 mmHg ADELA Mean Eder. Index 0.99 cm2/m2 LVOT Mean Grad 1.2 mmHg LVOT VTI 0.136 m LVOT Diam s 2.05 cm AoV Vmax 1.23 m/s Velocity Ratio 0.65 AoV Mean Eder. 0.84 m/s AoV Peak Grad 6.1 mmHg LVOT SV 46.96 mL AoV Mean Grad 3.2 mmHg AoV VTI 0.201 m AoV Area VTI 2.34 cm2 AoV Area/ BSA (VTI) 1.12 cm/m2 Mitral Valve MV DT 215 (160-240 msec) MR Vmax 5.06 m/s MV PHT 62 msec MR VTI 1.579 m MV Area PHT 3.52 cm2 MR Peak Grad 102.4 mmHg MV VTI 0.247 m MR Mean Grad 63.7 mmHg MV VTI Annulus 0.270 m MR PISA Radius 0.66 cm MV Area VTI 2.09 (4.0-6.0 cm2) MR EROA 0.19 cm2 MR Aliasing Velocity 0.35 m/s MR PISA 2.72 cm2 Pulmonary Valve PV Vmax 0.80 (0.5-1.5 m/s) RVOT Peak Gr. 1.45 mmHg PV Peak Grad 2.6 mmHg RVOT Mean Gr. 0.65 mmHg PV Mean Grad 1.2 mmHg RVOT VTI 0.101 m PV VTI 0.122 m RVOT Vmax 0.60 m/s Tricuspid Valve TR Peak Grad 24.3 mmHg TR Vmax 2.47 m/s RA Pressure 3.00 mmHg RVSP (TR) 27.4 mmHg
== END 2020-08-20 01:27 ==
PROVIDERS: PCP Nurse Practitioner Family; Visit Provider Internal Medicine Cardiovascular Disease
DX: I48.11 Longstanding persistent atrial fibrillation (principal); I08.1 Rheumatic disorders of both mitral and tricuspid valves
CPT/HCPCS: 93306

== ENCOUNTER → 2020-08-30 12:56 | Outpatient (BNVA) | payer MEDICARE, OTHER, SELFPAY | PROVIDERS: PCP Nurse Practitioner Family; Referring Provider Family Medicine; Visit Provider Internal Medicine Cardiovascular Disease | DX: I34.0 Nonrheumatic mitral (valve) insufficiency (principal); E78.5 Hyperlipidemia, unspecified; I12.9 Hypertensive chronic kidney disease with stage 1 through stage 4 chronic kidney disease, or unspecified chronic kidney disease; N18.9 Chronic kidney disease, unspecified; I48.20 Chronic atrial fibrillation, unspecified | CPT/HCPCS: 99214 ==

== ENCOUNTER 2020-09-12 02:11 | Outpatient (CLI) | payer MEDICARE, OTHER, SELFPAY ==
--- NOTE | 2020-09-12 06:30 | DI.US_ITS ---
EXAM: US RENAL CLINICAL HISTORY: Worsening renal function, r/o obstruction,CHRONIC KIDNEY DISEASE,N18.9. TECHNIQUE: Leyva scale, color and spectral Doppler were used. COMPARISON: CT CT ABDOMEN PELVIS W from 01/28/2019 FINDINGS: The exam is somewhat limited by patient body habitus. There is a large amount of perinephric fat. Renal size in cm: Right: 12.8 left: 10.7. Mild parenchymal thinning. Echogenicity: Slightly increased echogenicity consistent with medical renal disease. Hydronephrosis: No Cyst or mass: Multiple bilateral cysts. The largest is at the lower pole of the right kidney measure s 7.6 cm. Largest cyst on the left measures 4 cm in greatest dimension. Nephrolithiasis: No Bladder:Not well evaluated due to suboptimal distension. Prevoid vol:29 cc Postvoid vol:Not performed IMPRESSION: Stable bilateral renal cysts. No evidence of hydronephrosis. Bladder not well evaluated. Mildly in creased renal echogenicity, consistent with medical renal disease. DATA REPOSITORY:
== END 2020-09-12 02:12 ==
LOC: DI 02:11
PROVIDERS: PCP Nurse Practitioner Family; Visit Provider Nurse Practitioner Family
DX: N28.1 Cyst of kidney, acquired (principal); N18.9 Chronic kidney disease, unspecified
CPT/HCPCS: 76770

== ENCOUNTER 2020-11-06 02:54 | Outpatient (CLI) | payer MEDICARE, OTHER, SELFPAY ==
[2020-11-06 11:28] LABS: Source Nasal/Nares
[2020-11-06 15:51] LABS: COVID-19 PCR Negative (Negative)
== END 2020-11-06 02:55 | disposition home or self-care (01) ==
LOC: LBO 02:54
PROVIDERS: PCP Nurse Practitioner Family; Visit Provider Nurse Practitioner
DX: Z20.822 Contact with and (suspected) exposure to COVID-19 (principal); Z01.818 Encounter for other preprocedural examination
CPT/HCPCS: 87635

== ENCOUNTER 2020-11-09 13:10 | Emergency (ER) | payer MEDICARE, OTHER, SELFPAY ==
[2020-11-09] VITALS (28 sets, daily range): BP systolic 70–106; BP diastolic 35–77; PULSE 34–127; RESP 15–28; TEMP 36.5; O2SAT 88–98
--- NOTE | 2020-11-09 13:00 | RT.EKG_ITS ---
APPROVED REPORT Exam: Resting ECG Patient Location: E HR:39 bpm ECG Measurements Heart Rate 39 AXIS WV [id number] P [id number] QRSd 152 QRS 65 QT 526 T -72 QTc 422 Conclusion Atrial fibrillation...? atrial activity Nonspecific intraventricular conduction delay...QRSd >115mS, not LBBB/RBBB Anterior infarct, old...Q >40mS, abnormal ST-T, V2-V5 Repol abnrm suggests ischemia, lateral leads...ST dep, T neg, I aVL V5 V6 Physician: Rate 39, atrial fibrillation, interventricular conduction delay, widened QRS, notable carroll ycardia. No significant ST elevation or depression.
[2020-11-09] MEDS: Normal Saline 1,000 ML 1000 ML IV ×2 (13:10→14:20)
--- NOTE | 2020-11-09 13:15 | DI.RAD_ITS ---
EXAM: XR PORTABLE CHEST AP CLINICAL HISTORY: sob TECHNIQUE: 2D digital imaging was performed. COMPARISON: CR XR CHEST 2V PA LATERAL from 03/07/2019 CR,XR XR PORTABLE CHEST AP from 05/21/2019 CR XR CHEST 2V PA LATERAL from 05/25/2019 FINDINGS: MEDIASTINUM: Normal. HEART: The heart is at the upper limits of normal in size. PULMONARY VASCULATURE: Normal. LUNGS: There is a 2 cm nodule in the left upper lobe. PLEURAL SPACE: No pleural effusion or pneumothorax. BONE:Within normal limits for the patient's age. OTHER FINDINGS:Normal. IMPRESSION: 1. No acute pulmonary findings. 2. 2 cm nodule in left upper lobe. CT scan of the chest should be considered for further evaluation. DATA REPOSITORY: RADIATION DOSE DELIVERED:
--- NOTE | 2020-11-09 13:25 | W.ED.GENAD ---
Discharge Plan Disposition Patient Disposition: OTHER Condition: Serious Discharge Details Clinical Impression: Bradycardia, Acute hypotension, Incidental pulmonary nodule, Acute kidney injury Primary Care Provider: Ruby Godinez ED Provider: Taras Mckinney Home Meds and New Rx's Prescriptions: No Action Excedrin Migraine 250-250-65 mg tablet 1 tab PO ONCE PRNRF: 0 furosemide 20 mg tablet 20 mg PO DAILY RF: 0 lisinopril 5 mg tablet 2.5 mg PO DAILY RF: 0 metoprolol succinate 50 mg tablet extended release 24 hr 25 mg PO DAILY RF: 0 meclizine 25 mg tablet 25 mg PO TID PRNRF: 0 cholecalciferol (vitamin D3) 25 mcg (1,000 unit) capsule 25 mcg PO DAILY RF: 0 paroxetine HCl 30 mg tablet 30 mg PO DAILY Qty: 90 RF: 4 Lactobacillus acidophilus 1 EACH tablet 1 ea PO DAILY Qty: 1 RF: 0 doxazosin 4 mg tablet 4 mg PO HS Qty: 90 RF: 4 pantoprazole 40 mg tablet,delayed release (DR/EC) 40 mg PO DAILY Qty: 90 RF: 3 sucralfate 1 gram tablet 1 g PO QAC Qty: 270 RF: 4 spironolactone 25 mg tablet 25 mg PO DAILY Qty: 90 RF: 4 Eliquis 5 mg tablet 5 mg PO BID Qty: 180 RF: 4 Spiriva with HandiHaler 18 mcg capsule, w/inhalation device 1 cap Inhalation DAILY Qty: 3 RF: 4 finasteride 5 mg tablet 5 mg PO HS Qty: 90 RF: 4 Medical Decision Making 79-year-old male with past medical history significant for atrial fibrillation on apixaban, MAGAN, cardiomyopathy, 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 Patient states that for the last 2 to 3 weeks he has had mild intermittent chest pain which she describes as a small pension twinge-like sensation in his left chest around the area of his left breast. There only lasts for a few seconds and then goes away on its own. He also has associated shortness of breath which is also been present for the last 2 to 3 weeks but is notably worsened over the last 2 to 3 days. His shortness of breath is improved when he sits relaxes or lays down. It is worse when he gets up and exerts himself and perform his daily activities. Patient denies any recent weight gain. He denies any change in his medications. He denies taking any extra medications. He denies any cough fever or chills. No other complaints at this time. Exam is relatively unremarkable. However the patient is notably bradycardic in the 30s. Initial pressures in the 80s however the patient is clear, calm, and cohesive at this time. He is afebrile. Doubt infectious etiology. Suspect cardiac. Patient has not taken any extra of his metoprolol. We will place pacer pads, do a fluid trial to see if we can get his blood pressure up, if there is is not sufficient, we will need to start him pressors. With the patient currently anticoagulated, I do not feel that placing an IJ transvenous pacer would be ideal for compressibility issues on the neck if there is a bleeding complication. I did confirm with both the patient and his that the patient does want full CPR and intubation if it comes to it. We will reach out to [facility]. 2:32 PM Laboratory work-up is returned, no white count or bandemia. Electrolytes normal. Creatinine is bumped at 2.4, BUN of 42. proBNP is elevated at 6500, troponin normal. TSH is high at 7.6 however free T4 is normal at 1.04. Pending Covid test at this time. Chest x-ray shows no acute process, but does show 2 cm nodule in the left upper lobe which does need further ventral evaluation. I did contact [facility] and discussed the case with Dr. Devlin, she agrees with the need for transfer but states that [facility] currently has no available beds for transfer. Then spoke with Dr. Gonzalez at [facility], under the umbrella of department. He agrees to accept the patient. Patient's blood pressure did improve to the 90s after the initial fluid bolus of 1 L. We will continue fluids at a slower rate now. Pacer pads remain on. Patient will be transferred via schedule announcer. I have extensively reviewed the treatment plan with the patient. I have addressed all patient concerns at this time. I have also discussed the plan with the admitting physician and they agree with the current assessment and plan and have agreed to assume responsibility for the patient. All parties demonstrate verbal understanding and agreement with our assessment and plan at this time. The documentation in this chart was dictated using [employer] dictation software. Please excuse any dictation errors. At time of transfer patient's heart rate remained in the 30s to 40s, blood pressure remained in the 90s. He remains clinically optimistic, he is smiling, laughing and joking, extremities are well-perfused, and does not show overt signs of profound decompensation requiring pressors or intubation. EKG 13: 16 Rate 39, atrial fibrillation, interventricular conduction delay, widened QRS, notable bradycardia. No significant ST elevation or depression. FINDINGS: MEDIASTINUM: Normal. HEART: The heart is at the upper limits of normal in size. PULMONARY VASCULATURE: Normal. LUNGS: There is a 2 cm nodule in the left upper lobe. PLEURAL SPACE: No pleural effusion or pneumothorax. BONE:Within normal limits for the patient's age. OTHER FINDINGS:Normal. IMPRESSION: 1. No acute pulmonary findings. 2. 2 cm nodule in left upper lobe. CT scan of the chest should be considered for further evaluation. DATA REPOSITORY: RADIATION DOSE DELIVERED: [facility] General Date/Time Provider Initiated Documentation: 11/09/20 13:10. 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 Patient states that for the last 2 to 3 weeks he has had mild intermittent chest pain which she describes as a small pension twinge-like sensation in his left chest around the area of his left breast. There only lasts for a few seconds and then goes away on its own. He also has associated shortness of breath which is also been present for the last 2 to 3 weeks but is notably worsened over the last 2 to 3 days. His shortness of breath is improved when he sits relaxes or lays down. It is worse when he gets up and exerts himself and perform his daily activities. Patient denies any recent weight gain. He denies any change in his medications. He denies taking any extra medications. He denies any cough fever or chills. No other complaints at this time. Related Data Home Medications Medication Instructions Recorded Confirmed Lactobacillus acidophilus 1 ea PO DAILY #1 12/09/16 11/09/20 doxazosin 4 mg tablet 4 mg PO HS #90 tab-cap 08/22/19 11/09/20 okcpzhs-ueaaqodubvnoq-emvjaare 250 1 tab PO ONCE PRN 08/30/19 11/09/20 mg-250 mg-65 mg tablet furosemide 20 mg tablet 20 mg PO DAILY tab 02/21/20 11/09/20 lisinopril 5 mg tablet 2.5 mg PO DAILY tab 02/21/20 11/09/20 meclizine 25 mg tablet 25 mg PO TID PRN 02/21/20 11/09/20 metoprolol succinate 50 mg 25 mg PO DAILY tab 02/21/20 11/09/20 tablet,extended release 24 hr pantoprazole 40 mg tablet,delayed 40 mg PO DAILY #90 tab-cap 03/30/20 11/09/20 release sucralfate 1 gram tablet 1 g PO QAC #270 tab 04/13/20 11/09/20 paroxetine HCl 30 mg tablet 30 mg PO DAILY #90 tab-cap 06/04/20 11/09/20 spironolactone 25 mg tablet 25 mg PO DAILY #90 tab 07/30/20 11/09/20 cholecalciferol (vitamin D3) 25 25 mcg PO DAILY 08/24/20 11/09/20 mcg (1,000 unit) capsule apixaban 5 mg tablet 5 mg PO BID #180 tab 09/27/20 11/09/20 tiotropium bromide 18 mcg capsule 1 cap INHALATION DAILY #3 each 09/27/20 11/09/20 with inhalation device finasteride 5 mg tablet 5 mg PO HS #90 tab 10/08/20 11/09/20 Previous Rx's Medication Instructions Recorded doxazosin 4 mg tablet 4 mg PO HS #90 tab-cap 08/22/19 pantoprazole 40 mg tablet,delayed 40 mg PO DAILY #90 tab-cap 03/30/20 release sucralfate 1 gram tablet 1 g PO QAC #270 tab 04/13/20 paroxetine HCl 30 mg tablet 30 mg PO DAILY #90 tab-cap 06/04/20 spironolactone 25 mg tablet 25 mg PO DAILY #90 tab 07/30/20 apixaban 5 mg tablet 5 mg PO BID #180 tab 09/27/20 tiotropium bromide 18 mcg capsule 1 cap INHALATION DAILY #3 each 09/27/20 with inhalation device finasteride 5 mg tablet 5 mg PO HS #90 tab 10/08/20 Allergies Allergy/AdvReac Type Severity Reaction Status Date / Time pravastatin AdvReac Severe ABDOMINAL Verified 11/09/20 13:17 PAIN General Stated Complaint: Chest Pain JOE: 2 Review of Systems All systems reviewed & are unremarkable except as noted in HPI and below PFSH Medical History Atrial fibrillation Anticoagulated with Eliquis BPH (benign prostatic hyperplasia) CAD (coronary artery disease) Follow[facility] by [facility] Cardiology Nonobstructive CAD on left heart cath 06/27/19 [place] [facility] [place] Suspected old silent inferior wall IA 1988 CKD (chronic kidney disease) COPD (chronic obstructive pulmonary disease) Degenerative joint disease (DJD) of lumbar spine Depressive disorder Essential hypertension Gastroesophageal reflux disease H.H. Generalized anxiety disorder Hyperlipidemia Internal and external bleeding hemorrhoids IA (myocardial infarction) Suspected silent inferior wall IA 1988 Mitral valve regurgitation Non-toxic uninodular goiter right lobectomy 2005 Nonischemic cardiomyopathy MAGAN (obstructive sleep apnea) BIPAP Prediabetes Retinal detachment of left eye without retinal defect Sensorineural hearing loss (SNHL) of both ears Tubular adenoma of colon Colonoscopy 2019, repeat in 2026 if desired Type 2 diabetes mellitus Vitamin D deficiency Surgical History History of esophagogastroduodenoscopy (EGD) (04/13/18) History of hemorrhoidectomy (05/11/18) EUA, sarah, Dr Lundberg S/P arthroscopy of right shoulder S/P cholecystectomy S/P colonoscopy (04/17/20) S/P inguinal hernia repair S/P ORIF (open reduction internal fixation) fracture (10/25/18) For right radius, ulna fracture S/P partial thyroidectomy (2005) Right lobe S/P trigger finger release (04/16/18) Family History Mother No problems noted. Father No problems noted. Brother No problems noted. Social History Smoking/Tobacco Use Status: Former Tobacco Use Quit Date: 08/03/85 Smoking risk assessment performed?: Yes Alcohol Intake: current Alcohol Intake frequency: a few times a week Alcohol type: beer Drug use: Never Substance use type: does not use What type of physical activity do you participate in: none and independent ambulation Aleyda/Shinto: No preference Special aleyda needs: No Do you feel safe at home: Yes Do you feel safe in your relationship?: Yes Exam Narrative Exam Narrative: 1.Const: Well-nourished, Well-developed, appearing stated age 2.Eyes: PERRL, no conjunctival injection, and symmetrical lids. 3.ENT: Atraumatic external nose and ears. Moist MM. Neck: Symmetric, trachea midline, No thyromegaly. 4.CVS: +S1/S2, No murmurs or gallops. Peripheral pulses 2+ and equal in all extremities. Brisk capillary refill in all extremities. 5.RESP: Unlabored respiratory effort. Diminished breath sounds throughout. Minimal crackles in the lower base 6.GI: Soft, Nontender/Nondistended, No hepatosplenomegaly. No guarding or rebound. 7.MSK: Normocephalic/Atraumatic, Extremities w/o deformity or ttp No cyanosis or clubbing, Normal movement of all extremities. No calf tenderness, no pitting edema. 8.Skin: Warm, Dry. No rashes or lesions. 9.Neuro: shoe stitcher odd II-XII grossly intact. Sensation grossly intact, no focal neurologic deficits. 10.Psych: (AAO) x3. Appropriate mood and affect Course Vital Signs Vital signs: Vital Signs Temperature 36.5 C 11/09/20 13:14 Pulse 54 L 11/09/20 13:14 Respiratory Rate 16 11/09/20 13:14 Pulse Oximetry 97 11/09/20 13:14 Temperature 36.5 C 11/09/20 13:14 Temperature Source Temporal Artery Scan 11/09/20 13:14 Pulse 54 L 11/09/20 13:14 Pulse 52 L 11/09/20 13:20 Respiratory Rate 22 11/09/20 13:20 Respiratory Effort 11/09/20 13:18 Respiratory Depth Normal 11/09/20 13:18 Respiratory Pattern Normal 11/09/20 13:18 Pulse Oximetry 98 11/09/20 13:20 Oxygen Delivery Method Room Air 11/09/20 13:14 Oxygen Flow Rate 0 11/09/20 13:14 Pain Level 0 11/09/20 13:14 Critical Care Time Critical Care Time Critical Care Time: Yes Total Critical Care Time: 40 Attestation: Upon my evaluation, this patient had a high probability of imminent or life-threatening deterioration, which required my direct attention, intervention, and personal management. I have personally provided 40 minutes of critical care time exclusive of time spent on separately billable procedures. Time includes review of laboratory data, radiology results, discussion with consultants, and monitoring for potential decompensation. Interventions were performed as documented.
--- NOTE | 2020-11-09 13:33 | NUR.NOTE ---
Addendum entered by Lauren Gannon 11/09/20 13:36: Pt reports my heart rate has been in the 30's in the past few days Original Note: Nursing Note: Pt arrives to ED reports CP in my back on right side it's been hurting me and I don't know if that's related or not. Pt reports dealing with my shortness of breath for a while on and off.
[2020-11-09 13:35] LABS: Abs Immature Grans 0.05 10^3/uL (0.0-0.06); Absolute Basophil Count 0.04 10^3/uL (0.0-0.2); Absolute Eosinophil Count 0.04 10^3/uL (0.0-0.7); Absolute Lymphocyte Count 1.47 10^3/uL (1.2-3.4); Absolute Monocyte Count 1.29 10^3/uL (0.1-0.8); Absolute Neutrophil Count 7.83 10^3/uL (1.2-6.7); Basophils % 0.4; Eosinophils % 0.4; HCT 42.9 % (40.0-50.0); Immature Grans % 0.5; Lymphocytes % 13.7; MCH 29.5 pg (27.0-33.0); MCHC 32.6 % (32.0-36.0); MCV 90.5 fL (80-95); MPV 10.7 fL (8.0-11.0); Nucleated RBC 0 %; Platelet Count 233 10^3/uL (130-400); RBC 4.74 10^6/uL (4.36-5.78); RDW 13.3 % (11.8-14.1); RDW-SD 44.6 fL; WBC 10.72 10^3/uL (4.4-10.8)
--- NOTE | 2020-11-09 13:36 | NUR.NOTE ---
Nursing Note: EDP notified not pt's BP, IVF wide open start R AC. Pt reports does not feel lightheaded reports no dizziness.
[2020-11-09 13:45] LABS: Magnesium 2.2 mg/dL (1.8-2.4)
[2020-11-09 13:46] LABS: Troponin I < 0.05 ng/mL (<0.06)
[2020-11-09 13:51] LABS: ALT 29 U/L (16-63); AST 16 U/L (15-37); Alkaline Phosphatase 71 U/L (46-116); Anion Gap 11.3 mmol/L (3-11); BUN 42 mg/dL (7-18); Bilirubin, Total 0.9 mg/dL (0.2-1.0); CO2 24.7 mmol/L (21.0-32.0); CREATININE 2.4 mg/dL (0.70-1.30); Calcium 8.9 mg/dL (8.5-10.1); Chloride 102 mmol/L (98-107); Estimated GFR 26.11 (mL/min/1.73m2); Glucose 127 mg/dL (74-106); NT-proBNP 6530 pg/mL (<300); Potassium 4.1 mmol/L (3.5-5.1); Sodium 138 mmol/L (136-145); TSH (W/Ref FT4) 7.63 uIU/mL (0.36-3.74); Total Protein 7.4 g/dL (6.4-8.2)
--- NOTE | 2020-11-09 13:58 | NUR.NOTE ---
Nursing Note: manual BP 82/52. Pt denies dizziness /lightheaded
--- NOTE | 2020-11-09 14:04 | NUR.NOTE ---
Nursing Note: 1352 : IVF placed on pressure bag, EDP notified.
[2020-11-09 14:07] LABS: FREE T4 1.04 ng/dL (0.76-1.46)
--- NOTE | 2020-11-09 14:12 | NUR.NOTE ---
Nursing Note: IVF NS start 100cc/hr per verbal order Dr Mckinney.
[2020-11-09 14:33] LABS: INR 1.1 (0.9-1.1); PTT Activated 25.3 sec (21.0-27.5); Prothrombin Time 11.5 sec (9.3-11.0)
--- NOTE | 2020-11-09 14:46 | NUR.NOTE ---
Nursing Note: Pt aware of transfer , awaiting ambulance arrival. Pt gives belongings to include his wallet, to sig other in room. This RN placed shirt and his glasses into belongings bag, pt wearing pants and his shoes.
[2020-11-09 14:54] LABS: COVID-19 PCR Negative (Negative)
--- NOTE | 2020-11-09 15:07 | NUR.NOTE ---
Nursing Note: Attempt to call report for accepting facility, reports will call back as RN not available at this time.
== END 2020-11-09 15:08 | disposition other institution (70) ==
PROVIDERS: Emergency Provider Student in an Organized Health Care Education/Training Program; PCP Nurse Practitioner Family
DX: R00.1 Bradycardia, unspecified (principal); I95.9 Hypotension, unspecified; N17.9 Acute kidney failure, unspecified; R91.1 Solitary pulmonary nodule; R06.02 Shortness of breath; Z20.822 Contact with and (suspected) exposure to COVID-19
CPT/HCPCS: 80053; 87635; 93005; 96360; 99291; 71045; 83735; 83880; 84439; 84443; 84484; 85025; 85610; 85730; 93010

== ENCOUNTER 2020-12-05 04:41 | Outpatient (CLI) | payer MEDICARE, OTHER, SELFPAY ==
[2020-12-05 10:54] LABS: Abs Immature Grans 0.05 10^3/uL (0.0-0.06); Absolute Basophil Count 0.04 10^3/uL (0.0-0.2); Absolute Eosinophil Count 0.06 10^3/uL (0.0-0.7); Absolute Lymphocyte Count 1.47 10^3/uL (1.2-3.4); Absolute Monocyte Count 0.87 10^3/uL (0.1-0.8); Absolute Neutrophil Count 5.32 10^3/uL (1.2-6.7); Basophils % 0.5; Eosinophils % 0.8; HGB 13.4 g/dL (13.5-17.5); Immature Grans % 0.6; Lymphocytes % 18.8; MCH 29.1 pg (27.0-33.0); MCHC 31.9 % (32.0-36.0); MCV 91.3 fL (80-95); MPV 10.1 fL (8.0-11.0); Monocytes % 11.1; Neutrophils % 68.2; Nucleated RBC 0 %; Platelet Count 191 10^3/uL (130-400); RDW 12.9 % (11.8-14.1); RDW-SD 43.3 fL; WBC 7.81 10^3/uL (4.4-10.8)
[2020-12-05 11:55] LABS: ALT 32 U/L (16-63); AST 20 U/L (15-37); Albumin 3.6 g/dL (3.4-5.0); Alkaline Phosphatase 76 U/L (46-116); Anion Gap 8.4 mmol/L (3-11); BUN 25 mg/dL (7-18); Bilirubin, Total 0.6 mg/dL (0.2-1.0); CO2 28.6 mmol/L (21.0-32.0); CREATININE 1.9 mg/dL (0.70-1.30); Calcium 8.8 mg/dL (8.5-10.1); Chloride 104 mmol/L (98-107); Estimated GFR 34.19 (mL/min/1.73m2); Glucose 111 mg/dL (74-106); Potassium 4.7 mmol/L (3.5-5.1); Sodium 141 mmol/L (136-145); Total Protein 6.4 g/dL (6.4-8.2)
[2020-12-05 17:52] LABS: Thyroglobulin Antibody <15 U/mL (<=60); Thyroperoxidase Antibody <28 U/mL (<=60)
== END 2020-12-05 04:42 | disposition home or self-care (01) ==
LOC: LBO 04:41
PROVIDERS: PCP Nurse Practitioner Family; Visit Provider Nurse Practitioner Family
DX: N40.0 Benign prostatic hyperplasia without lower urinary tract symptoms (principal); I48.91 Unspecified atrial fibrillation; E03.9 Hypothyroidism, unspecified
CPT/HCPCS: 36415; 80053; 81003; 86376; 99215; 85025

== ENCOUNTER → 2020-12-18 10:45 | Outpatient (BNVA) | payer MEDICARE, OTHER, SELFPAY | PROVIDERS: PCP Nurse Practitioner Family; Referring Provider Nurse Practitioner Family; Visit Provider Internal Medicine Cardiovascular Disease | DX: I48.11 Longstanding persistent atrial fibrillation (principal); I25.10 Atherosclerotic heart disease of native coronary artery without angina pectoris; I50.20 Unspecified systolic (congestive) heart failure; I21.4 Non-ST elevation (NSTEMI) myocardial infarction; Z95.810 Presence of automatic (implantable) cardiac defibrillator | CPT/HCPCS: 99214 ==

== ENCOUNTER 2021-01-08 04:16 | Outpatient (CLI) | payer MEDICARE, OTHER, SELFPAY ==
[2021-01-08] MEDS: Albuterol HFA 18 GM 200 PUFF INH IH (13:33)
[2021-01-08] MEDS: Inhaler, Assist Device 1 EACH MC (13:33)
--- NOTE | 2021-01-09 11:12 | W.PFT ---
Date of service: 01/08/21 Time of Service: 12:50 Pulmonary Function Test Result Interpretation Spirometry: Mild obstructive airways disease with significant bronchodilator response Lung Volumes: Mild restriction Diffusion Capacity: Somewhat suboptimal patient effort, but shows very severe diffusion defect, this is severe when corrected to alveolar volume Airway Pressure: Normal Impression Combination of mild obstructive airways disease with significant bronchodilator response and mild restrictive pattern. This results in severe diffusion defect Clinical Correlation therefore is recommended.
== END 2021-01-08 04:17 | disposition home or self-care (01) ==
LOC: RT 04:16
PROVIDERS: PCP Nurse Practitioner Family; Visit Provider Nurse Practitioner Family
DX: J44.9 Chronic obstructive pulmonary disease, unspecified (principal)
CPT/HCPCS: 94060; 94726; 94729

== ENCOUNTER → 2021-02-11 09:36 | Outpatient (BNVA) | payer MEDICARE, OTHER, SELFPAY | PROVIDERS: PCP Nurse Practitioner Family; Referring Provider Nurse Practitioner Family; Visit Provider Nurse Practitioner Gerontology | DX: N40.0 Benign prostatic hyperplasia without lower urinary tract symptoms (principal) | CPT/HCPCS: 99214 ==

== ENCOUNTER 2021-02-21 01:39 | Outpatient (CLI) | payer MEDICARE, OTHER, SELFPAY ==
--- NOTE | 2021-02-21 08:00 | DI.US_ITS ---
APPROVED REPORT EXAM: Comprehensive 2D, Doppler, and color-flow Echocardiogram Patient Location: Out-Patient Chip Bin Operator: Virginia Gonsalez RDCS (AE) Indications: Cardiomyopathy, Atrial Fibrillation Other Information Study Quality: Adequate Conclusion Left Ventricle : The left ventricle is normal size. Left ventricular systolic function is mildly decr eased. There is normal left ventricular wall thickness. There is global hypokinesis of the left ventr icle. The left ventricular diastolic function is normal. LVEF is 43%. Right Ventricle : Right ventricle is mildly dilated. Right ventricle is mildly hypokinetic. The RVSP is 71 mmHg. Atria : Left atrium is severely dilated. Right atrium is severely dilated. Mitral Valve : The mitral valve is mildly thickened but opens well. Moderate to severe mitral regurgi tation No evidence of mitral valve stenosis. Great Vessels : The aortic root is normal in size. The ascending aorta is moderately dilated. Aortic arch is not well visualized. The IVC collapses <50% with inspiration. Compared to echocardiogram from [facility] on 11/12/2020, the patient's ejection fraction has improved slightly from 35% to 43%. His mitral regurgitation has worsened with an EROA increasing fr om 0.33cm?? to 0.48 cm??. Wall motion Left Ventricle The left ventricle is normal size. Left ventricular systolic function is mildly decreased. There is n ormal left ventricular wall thickness. There is global hypokinesis of the left ventricle. The left ve ntricular diastolic function is normal. There is no ventricular septal defect visualized. LVEF is 43% . Right Ventricle Right ventricle is mildly dilated. Right ventricle is mildly hypokinetic. The RVSP is 71 mmHg. Device lead is present in the right ventricle. Atria Left atrium is severely dilated. Right atrium is severely dilated. The interatrial septum is intact w ith no evidence for an atrial septal defect. Aortic Valve The Aortic valve is sclerotic. Aortic valve is trileaflet. There is no aortic valvular stenosis. Trac e to mild aortic regurgitation. Mitral Valve The mitral valve is mildly thickened but opens well. No evidence of mitral valve stenosis. Moderate t o severe mitral regurgitation Tricuspid Valve The tricuspid valve is normal in structure. There is no tricuspid valve stenosis. Severe tricuspid re gurgitation. Pulmonic Valve The pulmonary valve is normal in structure. There is no pulmonic valvular stenosis. Trace pulmonic re gurgitation. Great Vessels The aortic root is normal in size. The ascending aorta is moderately dilated. Aortic arch is not well visualized. The IVC collapses <50% with inspiration. Pericardium There is no pericardial effusion. 2D Dimensions IVSD d PLAX 0.97 cm M: 0.6-1.2 LV Vol A2C d MOD 152.3 mL LVPW d PLAX 0.99 cm M: 0.6 - 1.2 LV Vol A4C d MOD 141.6 mL LVID d PLAX 5.66 cm M: 4.2 - 5.8 LA vol/ BSA A2C s A-L 76.3 mL/m2 LVDs 4.40 cm M: 2.5 - 4.0 LA vol/ BSA A4C s A-L 110.4 mL/m2 Ao Root d 3.47 cm M: 3.1 - 3.7 LA Vol/ BSA Biplane s A-L 98.4 mL/m2 RA Area A4C 34.30 cm2 LA Area A4C s MOD 50.74 cm2 RA Vol/ BSA A4C s A-L 60.2 mL/m2 LA Area A2C s MOD 39.34 cm2 Ao Asc Diam d 4.36 cm M: 2.6 - 3.4 LV EF A4C MOD 42.6 % LV EF Teichholz 43.5 % LV EF A2C MOD 43.0 % LVEF (Fountain's) 41.67 % M: 52 - 72 LV EF Biplane MOD 41.7 % LV Volume 109.38 mL M: 62 - 150 SV 62.12 mL LV Volume Index 51.11 mL/m2 M: 34 - 74 SV Index 29.05 mL/m2 LV Vol Biplane MOD 149.1 mL FS 21.80 % M-Mode TAPSE 1.48 cm (M/F) >1.7 LV Diastology MV E' medial 0.083 (>0.07 m/s) MV E Vmax 1.01 (0.4-1.3 m/s) LV E/e MED 12.10 (<14) MV E' lateral 0.147 (>0.1 m/s) LV E/e LAT 6.85 (<14) MV E/E' medial 12.10 MV E/E' lateral 6.86 Aortic Valve LVOT Area 3.28 cm2 AoV Area Vmax 2.78 cm2 LVOT Vmax 0.97 m/s AoV Area/ BSA (Vmax) 1.30 cm2/m2 LVOT Mean Eder. 0.64 m/s ADELA Mean Eder. 2.52 cm2 LVOT Peak Grad 3.8 mmHg ADELA Mean Eder. Index 1.18 cm2/m2 LVOT Mean Grad 1.9 mmHg AR DT 2632 msec LVOT VTI 0.178 m AR PHT 763 msec LVOT Diam s 2.00 cm AoV Vmax 1.15 m/s Velocity Ratio 0.84 AoV Mean Eder. 0.84 m/s AoV Peak Grad 5.3 mmHg LVOT SV 58.48 mL AoV Mean Grad 3.0 mmHg AoV VTI 0.203 m AoV Area VTI 2.89 cm2 AoV Area/ BSA (VTI) 1.35 cm/m2 Mitral Valve MV DT 169 (160-240 msec) MR Vmax 4.96 m/s MV PHT 49 msec MR VTI 1.678 m MV Area PHT 4.48 cm2 MR Peak Grad 98.5 mmHg MV VTI 0.319 m MR Mean Grad 68.8 mmHg MV VTI Annulus 0.325 m MR PISA Radius 1.04 cm MV Area VTI 1.87 (4.0-6.0 cm2) MR EROA 0.48 cm2 MR Aliasing Velocity 0.35 m/s MR PISA 6.84 cm2 Pulmonary Valve PV Vmax 0.78 (0.5-1.5 m/s) RVOT Peak Gr. 2.10 mmHg PV Peak Grad 2.4 mmHg RVOT Mean Gr. 1.00 mmHg PV Mean Grad 1.2 mmHg RVOT VTI 0.131 m PV VTI 0.138 m RVOT Vmax 0.72 m/s Tricuspid Valve TR Peak Grad 63.2 mmHg TR Vmax 3.98 m/s RA Pressure 8.00 mmHg RVSP (TR) 71.2 mmHg
== END 2021-02-21 01:59 ==
PROVIDERS: PCP Nurse Practitioner Family; Visit Provider Internal Medicine Cardiovascular Disease
DX: I48.11 Longstanding persistent atrial fibrillation (principal); I42.9 Cardiomyopathy, unspecified; I34.0 Nonrheumatic mitral (valve) insufficiency; I77.810 Thoracic aortic ectasia
CPT/HCPCS: 93306

== ENCOUNTER → 2021-02-22 11:29 | Outpatient (BNVA) | payer MEDICARE, OTHER, SELFPAY | PROVIDERS: PCP Nurse Practitioner Family; Referring Provider Nurse Practitioner Family; Visit Provider Internal Medicine Cardiovascular Disease | DX: R06.02 Shortness of breath (principal); I50.20 Unspecified systolic (congestive) heart failure; I25.10 Atherosclerotic heart disease of native coronary artery without angina pectoris; J44.9 Chronic obstructive pulmonary disease, unspecified; I48.11 Longstanding persistent atrial fibrillation | CPT/HCPCS: 36415; 80048; 84153; 99214; 83880; 84439; 84443; 99213 ==

== ENCOUNTER 2021-02-22 12:22 | Outpatient (CLI) | payer MEDICARE, OTHER, SELFPAY ==
[2021-02-22 14:37] LABS: BUN 26 mg/dL (7-18); CREATININE 1.9 mg/dL (0.70-1.30); Calcium 8.5 mg/dL (8.5-10.1); Chloride 106 mmol/L (98-107); Estimated GFR 34.11 (mL/min/1.73m2); Glucose 129 mg/dL (74-106); Potassium 4.6 mmol/L (3.5-5.1); Sodium 141 mmol/L (136-145)
[2021-02-22 14:52] LABS: FREE T4 1.18 ng/dL (0.76-1.46); NT-proBNP 5545 pg/mL (<300); TSH 5.91 uIU/mL (0.36-3.74)
== END 2021-02-22 12:23 | disposition home or self-care (01) ==
LOC: LBO 12:23
PROVIDERS: PCP Nurse Practitioner Family; Visit Provider Internal Medicine Cardiovascular Disease
DX: I50.20 Unspecified systolic (congestive) heart failure (principal); I25.10 Atherosclerotic heart disease of native coronary artery without angina pectoris; E03.9 Hypothyroidism, unspecified; N40.1 Benign prostatic hyperplasia with lower urinary tract symptoms; Z85.46 Personal history of malignant neoplasm of prostate
CPT/HCPCS: 36415; 80048; 84153; 83880; 84439; 84443

== ENCOUNTER → 2021-02-25 09:32 | Outpatient (BNVA) | payer MEDICARE, OTHER, SELFPAY | PROVIDERS: PCP Nurse Practitioner Family; Referring Provider Nurse Practitioner Family; Visit Provider Internal Medicine Cardiovascular Disease | DX: I50.20 Unspecified systolic (congestive) heart failure (principal); J44.9 Chronic obstructive pulmonary disease, unspecified; I48.91 Unspecified atrial fibrillation; G47.33 Obstructive sleep apnea (adult) (pediatric) | CPT/HCPCS: 99214; 99213 ==

== ENCOUNTER 2021-02-28 04:11 | Outpatient (CLI) | payer MEDICARE, OTHER, SELFPAY ==
[2021-02-28 11:46] LABS: Anion Gap 8.5 mmol/L (3-11); BUN 27 mg/dL (7-18); CO2 30.5 mmol/L (21.0-32.0); CREATININE 1.9 mg/dL (0.70-1.30); Chloride 102 mmol/L (98-107); Estimated GFR 34.11 (mL/min/1.73m2); Glucose 145 mg/dL (74-106); NT-proBNP 2844 pg/mL (<300); Potassium 4.1 mmol/L (3.5-5.1); Sodium 141 mmol/L (136-145)
== END 2021-02-28 04:12 | disposition home or self-care (01) ==
LOC: LBO 04:11
PROVIDERS: PCP Nurse Practitioner Family; Visit Provider Internal Medicine Cardiovascular Disease
DX: I50.20 Unspecified systolic (congestive) heart failure (principal); I25.10 Atherosclerotic heart disease of native coronary artery without angina pectoris; J44.9 Chronic obstructive pulmonary disease, unspecified; I11.0 Hypertensive heart disease with heart failure; N18.9 Chronic kidney disease, unspecified; I34.0 Nonrheumatic mitral (valve) insufficiency; I48.20 Chronic atrial fibrillation, unspecified; Z87.891 Personal history of nicotine dependence
CPT/HCPCS: 36415; 80048; 99214; 83880

== ENCOUNTER 2021-03-07 04:42 | Outpatient (CLI) | payer MEDICARE, OTHER, SELFPAY ==
[2021-03-07 14:46] LABS: Anion Gap 8.2 mmol/L (3-11); BUN 36 mg/dL (7-18); CO2 27.8 mmol/L (21.0-32.0); Calcium 9.2 mg/dL (8.5-10.1); Chloride 105 mmol/L (98-107); Estimated GFR 32.15 (mL/min/1.73m2); Glucose 109 mg/dL (74-106); NT-proBNP 3810 pg/mL (<300); Potassium 4.4 mmol/L (3.5-5.1); Sodium 141 mmol/L (136-145)
== END 2021-03-07 04:43 | disposition home or self-care (01) ==
LOC: LBO 04:42
PROVIDERS: PCP Nurse Practitioner Family; Visit Provider Internal Medicine Cardiovascular Disease
DX: I50.20 Unspecified systolic (congestive) heart failure (principal); N18.9 Chronic kidney disease, unspecified; I25.10 Atherosclerotic heart disease of native coronary artery without angina pectoris; J44.9 Chronic obstructive pulmonary disease, unspecified; I13.0 Hypertensive heart and chronic kidney disease with heart failure and stage 1 through stage 4 chronic kidney disease, or unspecified chronic kidney disease; I42.9 Cardiomyopathy, unspecified; I48.20 Chronic atrial fibrillation, unspecified
CPT/HCPCS: 36415; 80048; 83880; 99213

== ENCOUNTER → 2021-03-21 13:09 | Outpatient (BNVA) | payer MEDICARE, OTHER, SELFPAY | PROVIDERS: PCP Nurse Practitioner Family; Referring Provider Nurse Practitioner Family; Visit Provider Internal Medicine Cardiovascular Disease | DX: I50.20 Unspecified systolic (congestive) heart failure (principal); I34.0 Nonrheumatic mitral (valve) insufficiency; I42.8 Other cardiomyopathies; I48.20 Chronic atrial fibrillation, unspecified; I13.0 Hypertensive heart and chronic kidney disease with heart failure and stage 1 through stage 4 chronic kidney disease, or unspecified chronic kidney disease; N18.9 Chronic kidney disease, unspecified | CPT/HCPCS: 99214 ==

== ENCOUNTER 2021-05-08 01:31 | Outpatient (CLI) | payer MEDICARE, OTHER, SELFPAY ==
--- NOTE | 2021-05-08 10:21 | DI.RAD_ITS ---
Exam(s) XR CHEST 2V PA LATERAL EXAM: XR CHEST 2V PA LATERAL CLINICAL HISTORY: increase SOB,H/O CHF,? EFFUSION ON EXAM,R06.02 TECHNIQUE: 2D digital imaging was performed of the chest. Two images were obtained. PA and lateral views were obtained. COMPARISON: CR XR CHEST 2V PA LATERAL from 05/25/2019 CR XR PORTABLE CHEST AP from 11/09/2020 FINDINGS: MEDIASTINUM: Normal. HEART: Stable cardiomegaly. PULMONARY VASCULATURE: Atherosclerosis and tortuosity of the thoracic aorta. LUNGS: Clear. The lungs appear hyperinflated suggesting underlying COPD. PLEURAL SPACE: No pleural effusion or pneumothorax. BONE:Within normal limits for the patient's age. OTHER FINDINGS:There has been interval placement of a transvenous pacemaker. IMPRESSION: No acute pulmonary findings. DATA REPOSITORY: RADIATION DOSE DELIVERED:
== END 2021-05-08 01:51 ==
PROVIDERS: PCP Nurse Practitioner Family; Visit Provider Family Medicine
DX: R06.02 Shortness of breath (principal)
CPT/HCPCS: 71046

== ENCOUNTER 2021-05-21 11:55 | Outpatient (CLI) | payer MEDICARE, OTHER, SELFPAY ==
[2021-05-21 12:28] LABS: Anion Gap 7.3 mmol/L (3-11); BUN 40 mg/dL (7-18); CO2 30.7 mmol/L (21.0-32.0); CREATININE 2.5 mg/dL (0.70-1.30); Calcium 8.5 mg/dL (8.5-10.1); Chloride 103 mmol/L (98-107); Estimated GFR 24.85 (mL/min/1.73m2); Glucose 189 mg/dL (74-106); Potassium 4.2 mmol/L (3.5-5.1); Sodium 141 mmol/L (136-145)
== END 2021-05-21 11:56 | disposition home or self-care (01) ==
LOC: LBO 12:02
PROVIDERS: PCP Nurse Practitioner Family; Visit Provider Nurse Practitioner Adult Health
DX: R06.02 Shortness of breath (principal); I50.20 Unspecified systolic (congestive) heart failure
CPT/HCPCS: 36415; 80048